=== PATIENT | female | born 1940 | race Caucasian/White ===

== ENCOUNTER → 2017-08-20 | Outpatient (REF) | payer MEDICARE, BC, MEDICAID ==
[~2017-08-20] MED LIST: ALBU17IN INH; ALBU83IN INH; ALDA25TA PO; ALDA25TA4 PO; CALC25TA PO; CALCTAB68 PO; CALTTAB10 PO; CARD120T4 PO; COUM1TAB14 PO; ELIQ5TAB PO; FERR324T2 PO; FERR325T3 PO; HYDR-3713 PO; KLOR1TAB69 PO; LIDO5DIS41 TD; MICR10CA PO; MONT10TA2 PO; MULTTAB33 PO; OCUVTAB PO; PRED20TAB PO; PROB1TAB PO; PROT1TAB2 PO; SING10TA32 PO; SPIR25TA2 PO; SYMB16INH INH; THEO1CAP2 PO; VICO5TAB16 PO; VITA-121 PO; VITA-122 PO; VITMTA PO; [UNRECOGNIZED DRUG - CODE] PO
[2017-08-20 10:57] LABS: BASO % 0.7 % (0.0-1.0); EOS # 0.1 10^3/uL (0.0-0.50); IMMATURE GRANULOCYTE % 0.2 % (0-0); LYMPH # 1.3 10^3/uL (1.5-4.5); MEAN CORPUSCULAR HEMOGLOBIN 32.4 pg (27.0-33.0); MEAN CORPUSCULAR HGB CONC 33.9 g/dl (32.0-36.5); MEAN CORPUSCULAR VOLUME 95.4 fl (80.0-96.0); MONO # 0.4 10^3/uL (0.0-0.8); NEUTROPHILS # 2.6 10^3/uL (1.8-7.7); NEUTROPHILS % 59.1 % (36.0-66.0); PLATELET COUNT, AUTOMATED 266 10^3/uL (150-450); RED CELL DISTRIBUTION WIDTH 13.2 % (11.5-14.5); WHITE BLOOD COUNT 4.4 10^3/uL (4.0-10.0)
[2017-08-20 11:29] LABS: ALBUMIN 3.4 GM/DL (3.2-5.2); ALBUMIN/GLOBULIN RATIO 1.1 (1.00-1.93); BILIRUBIN,TOTAL 0.6 MG/DL (0.2-1.0); CALCIUM LEVEL 8.6 MG/DL (8.8-10.2); CREATININE FOR GFR 1.01 MG/DL (0.55-1.02); GLOMERULAR FILTRATION RATE 56.6 (>39); TOTAL PROTEIN 6.5 GM/DL (6.4-8.2)
== END ==
LOC: M LAB REF 10:14
PROVIDERS: ATTEND Internal Medicine
DX: I12.9 Hypertensive chronic kidney disease with stage 1 through stage 4 chronic kidney disease, or unspecified chronic kidney disease (principal); E78.00 Pure hypercholesterolemia, unspecified

== ENCOUNTER 2018-01-02 10:58 | Day surgery (SDC) | payer MEDICARE, BC, MEDICAID ==
[2018-01-02] MEDS: NS 1,000 ML IV (11:30)
[2018-01-02] MEDS ORDERED: PROPOFOL 200 MG/20 ML VIAL As Ordered ×2 (11:33→12:28)
== END 2018-01-02 13:20 | disposition home or self-care (01) ==
LOC: M OPP 10:58
DX: Z12.11 Encounter for screening for malignant neoplasm of colon (principal); Z86.010 Personal history of colon polyps; D12.2 Benign neoplasm of ascending colon; K64.0 First degree hemorrhoids; I10 Essential (primary) hypertension; K92.2 Gastrointestinal hemorrhage, unspecified; K21.9 Gastro-esophageal reflux disease without esophagitis; Z86.718 Personal history of other venous thrombosis and embolism; Z99.3 Dependence on wheelchair; M41.9 Scoliosis, unspecified; M19.90 Unspecified osteoarthritis, unspecified site; M48.00 Spinal stenosis, site unspecified; R51 Headache; D64.9 Anemia, unspecified; J45.909 Unspecified asthma, uncomplicated; J44.9 Chronic obstructive pulmonary disease, unspecified; Z88.5 Allergy status to narcotic agent; Z88.2 Allergy status to sulfonamides; Z88.8 Allergy status to other drugs, medicaments and biological substances; Z79.01 Long term (current) use of anticoagulants; Z79.899 Other long term (current) drug therapy; Z80.0 Family history of malignant neoplasm of digestive organs
CPT/HCPCS: 45385

== ENCOUNTER → 2018-02-15 | Outpatient (REF) | payer MEDICARE, BC, MEDICAID ==
[2018-02-15 11:27] LABS: BASO % 0.6 % (0.0-1.0); EOS # 0.1 10^3/uL (0.0-0.50); EOS % 2.4 % (0.0-3.0); HEMATOCRIT 44.9 % (36.0-47.0); HEMOGLOBIN 15.2 g/dl (12.0-15.5); IMMATURE GRANULOCYTE % 0.2 % (0-3.0); LYMPH # 1.2 10^3/uL (1.5-4.5); LYMPH % 25.6 % (24.0-44.0); MEAN CORPUSCULAR HEMOGLOBIN 32.1 pg (27.0-33.0); MEAN CORPUSCULAR HGB CONC 33.9 g/dl (32.0-36.5); MEAN CORPUSCULAR VOLUME 94.7 fl (80.0-96.0); MONO # 0.4 10^3/uL (0.0-0.8); MONO % 7.5 % (0.0-5.0); NEUTROPHILS % 63.7 % (36.0-66.0); PLATELET COUNT, AUTOMATED 261 10^3/uL (150-450); RED BLOOD COUNT 4.74 10^6/uL (4.00-5.40); RED CELL DISTRIBUTION WIDTH 12.7 % (11.5-14.5); WHITE BLOOD COUNT 4.7 10^3/uL (4.0-10.0)
[2018-02-15 11:53] LABS: ALBUMIN 3.4 GM/DL (3.2-5.2); ALKALINE PHOSPHATASE 81 U/L (45-117); ALT/SGPT 27 U/L (12-78); ANION GAP 9 MEQ/L (8-16); AST/SGOT 19 U/L (7-37); BILIRUBIN,TOTAL 0.5 MG/DL (0.2-1.0); BLOOD UREA NITROGEN 17 MG/DL (7-18); CALCIUM LEVEL 8.3 MG/DL (8.8-10.2); CARBON DIOXIDE LEVEL 26 MEQ/L (21-32); CHLORIDE LEVEL 106 MEQ/L (98-107); CREATININE FOR GFR 1.16 MG/DL (0.55-1.30); GLOMERULAR FILTRATION RATE 48.1 (>39); GLUCOSE, FASTING 140 MG/DL (70-100); POTASSIUM SERUM 3.7 MEQ/L (3.5-5.1); SODIUM LEVEL 141 MEQ/L (136-145); TOTAL PROTEIN 6.8 GM/DL (6.4-8.2)
[2018-02-15 13:51] LABS: ESTIMATED AVERAGE GLUCOSE 134 MG/DL (60-110); HEMOGLOBIN A1c 6.3 %
== END ==
LOC: M LAB REF 11:15
DX: Z00.00 Encounter for general adult medical examination without abnormal findings (principal); Z79.899 Other long term (current) drug therapy
CPT/HCPCS: 80053

== ENCOUNTER 2018-04-15 12:44 | Outpatient (RCR) | payer MEDICARE, BC, MEDICAID | END 2018-05-03 | LOC: M ST 12:44 | DX: R49.0 Dysphonia (principal) | CPT/HCPCS: 92507 ==

== ENCOUNTER → 2018-08-22 | Outpatient (REF) | payer MEDICARE, BC, MEDICAID ==
[~2018-08-22] MED LIST changes: +COUM1TAB19 PO; +SPIR-10 PO; -SPIR25TA2 PO
[2018-08-22 12:14] LABS: HEMATOCRIT 45.8 % (36.0-47.0); HEMOGLOBIN 15.2 g/dl (12.0-15.5); RED BLOOD COUNT 4.77 10^6/uL (4.00-5.40); WHITE BLOOD COUNT 4.9 10^3/uL (4.0-10.0)
[2018-08-22 12:15] LABS: BASO % 0.6 % (0.0-1.0); EOS # 0.1 10^3/uL (0.0-0.50); LYMPH # 1.4 10^3/uL (1.5-4.5); MEAN CORPUSCULAR HEMOGLOBIN 31.9 pg (27.0-33.0); MEAN CORPUSCULAR HGB CONC 33.2 g/dl (32.0-36.5); MONO # 0.5 10^3/uL (0.0-0.8); MONO % 9.1 % (0.0-5.0); NEUTROPHILS # 2.9 10^3/uL (1.8-7.7); NEUTROPHILS % 59.3 % (36.0-66.0); PLATELET COUNT, AUTOMATED 240 10^3/uL (150-450)
[2018-08-22 12:30] LABS: ALBUMIN 3.2 GM/DL (3.2-5.2); BILIRUBIN,TOTAL 0.5 MG/DL (0.2-1.0); CALCIUM LEVEL 7.9 MG/DL (8.8-10.2); CHOLESTEROL RISK RATIO 5.125 (<5); CREATININE FOR GFR 0.98 MG/DL (0.55-1.30); GLOMERULAR FILTRATION RATE 58.4 (>39); POTASSIUM SERUM 3.9 MEQ/L (3.5-5.1); THYROID STIMULATING HORMONE 1.69 uIU/ML (0.358-3.740); TOTAL PROTEIN 6.6 GM/DL (6.4-8.2)
[2018-08-22 12:35] LABS: HEMOGLOBIN A1c 6.6 %
== END ==
LOC: M LAB REF 11:34
PROVIDERS: ATTEND Internal Medicine
DX: Z79.01 Long term (current) use of anticoagulants (principal); R53.83 Other fatigue; Z13.89 Encounter for screening for other disorder

== ENCOUNTER → 2020-08-05 | Outpatient (REF) | payer MEDICARE, BC, MEDICAID ==
[~2020-08-05] MED LIST changes: -ALDA25TA PO; -COUM1TAB14 PO; +COUM4TAB8 PO; -MONT10TA2 PO; +MONT5TAB2 PO; +NORC1TAB7 PO; +SPIR1TAB34 PO; -VICO5TAB16 PO; +VICO5TAB17 PO
[2020-08-05 14:07] LABS: BASO % 0.4 % (0.0-1.0); EOS % 0.3 % (0.0-3.0); HEMATOCRIT 50.2 % (36.0-47.0); HEMOGLOBIN 16.8 g/dl (12.0-15.5); LYMPH # 0.8 10^3/uL (1.5-5.0); LYMPH % 10.6 % (24.0-44.0); MEAN CORPUSCULAR HEMOGLOBIN 32.6 pg (27.0-33.0); MEAN CORPUSCULAR HGB CONC 33.5 g/dl (32.0-36.5); MEAN CORPUSCULAR VOLUME 97.5 fl (80.0-96.0); MONO # 0.1 10^3/uL (0.0-0.8); MONO % 1.7 % (0.0-5.0); NEUTROPHILS # 6.5 10^3/uL (1.5-8.5); NEUTROPHILS % 86.7 % (36.0-66.0); PLATELET COUNT, AUTOMATED 304 10^3/uL (150-450); RED BLOOD COUNT 5.15 10^6/uL (4.00-5.40); WHITE BLOOD COUNT 7.5 10^3/uL (4.0-10.0)
[2020-08-05 16:43] LABS: ALBUMIN 3.9 GM/DL (3.2-5.2); BILIRUBIN,TOTAL 0.6 MG/DL (0.2-1.0); CALCIUM LEVEL 9.2 MG/DL (8.8-10.2); CREATININE FOR GFR 1.26 MG/DL (0.55-1.30); GLOMERULAR FILTRATION RATE 43.5 (>32); POTASSIUM SERUM 4.5 MEQ/L (3.5-5.1); TOTAL PROTEIN 7.1 GM/DL (6.4-8.2)
[2020-08-05 18:33] LABS: HEMOGLOBIN A1c 6.8 %
== END ==
LOC: M LAB REF 13:39
PROVIDERS: ATTEND Internal Medicine
DX: I12.9 Hypertensive chronic kidney disease with stage 1 through stage 4 chronic kidney disease, or unspecified chronic kidney disease (principal); I87.302 Chronic venous hypertension (idiopathic) without complications of left lower extremity; R73.09 Other abnormal glucose

== ENCOUNTER → 2021-02-08 | Outpatient (CLI) | payer MEDICARE, BC, MEDICAID ==
[~2021-02-08] MED LIST changes: +MONT10TA10 PO; -MONT5TAB2 PO
--- NOTE | 2021-02-08 14:02 | REP ---
INDICATION: PAIN. COMPARISON: None TECHNIQUE: Two views FINDINGS: There is flattening of the femoral head. There is superolateral subluxation. There is marginal osteophytosis arising from the inferomedial margin of the femoral head. There is acetabular and femoral head subchondral sclerosis. Bones are otherwise generally demineralized. IMPRESSION: Advanced chronic right hip changes as described above. Consider further evaluation with MRI to search for marrow edema to assess for the possibility of an acute abnormality superimposed upon chronic change. <Electronically signed by Bryan Chirinos > 02/08/21 0525
== END ==
LOC: M WUC 13:33
PROVIDERS: ATTEND Internal Medicine
DX: M25.751 Osteophyte, right hip (principal); M89.8X5 Other specified disorders of bone, thigh

== ENCOUNTER → 2021-04-29 | Outpatient (CLI) | payer MEDICARE, MEDICAID ==
[~2021-04-29] MED LIST changes: +BUPIVACAINE HCL 0.5% 10ML VIAL As Ordered ONE; +ISOVUE-300 61% 50ML VIAL As Ordered ONE; +methylPREDNISolone 80MG/ML SUSP 1ML VIAL (J1040) As Ordered ONE
--- NOTE | 2021-04-29 13:30 | REP ---
INDICATION: RT HIP PAIN. COMPARISON: None TECHNIQUE: The procedure was performed by LILIAN Gamez, under the direct supervision of Dr. Amado. The benefits and risks of the procedure were explained to the patient, and an informed consent was obtained. Directly prior to the start of the procedure, a formal time-out was completed in the procedure room. The right femoral neck joint space was localized using fluoroscopic guidance. The skin was prepped and draped in a sterile fashion. Approximately 5 mL of 1% Lidocaine 10 mg/ml was used as a local anesthetic. Using fluoroscopic guidance, a #22 gauge spinal needle was inserted and advanced into the right femoral neck joint space. Approximately 1 mL of Isovue 300 was injected to verify placement. Six mL of a solution containing 5 mL 0.5 bupivacaine 5 mg/ml and 1 mL Depo-Medrol 80 milligrams/milliliter was injected into the joint space. The needle was removed and hemostasis was achieved. FINDINGS: The patient tolerated the procedure well and there were no immediate complications. IMPRESSION: 1. Fluoroscopically guided right hip intra-articular joint injection. 0.2 minutes of fluoroscopy time was utilized for this procedure. Some fluoroscopic images are performed with last image hold technology. These images require no additional radiation. <Electronically signed by Zulma Kaur > 04/29/21 1216 <Electronically signed by Lewis Amado > 04/29/21 [id number]
== END ==
LOC: M RADPRO 11:10
PROVIDERS: ATTEND Orthopaedic Surgery
DX: M25.551 Pain in right hip (principal)
CPT/HCPCS: 20610; 77002; J1040; Q9967

== ENCOUNTER → 2021-07-04 | Outpatient (CLI) | payer MEDICARE, MEDICAID ==
[~2021-07-04] MED LIST changes: -BUPIVACAINE HCL 0.5% 10ML VIAL As Ordered ONE; +BUPIVACAINE HCL 0.5% 30 ML VIAL As Ordered ONE
--- NOTE | 2021-07-04 18:08 | REP ---
INDICATION: RT HIP PAIN W/ OA. COMPARISON: None TECHNIQUE: The procedure was performed by LILIAN Gonzalez, under the direct supervision of Dr. Garcia. The benefits and risks of the procedure were explained to the patient, and an informed consent was obtained. Directly prior to the start of the procedure, a formal time-out was completed in the procedure room. The right hip joint space was localized using fluoroscopic guidance. The skin was prepped and draped in a sterile fashion. Approximately 5 mL of 1% Lidocaine 10 mg/ml was used as a local anesthetic. Using fluoroscopic guidance, a #22 gauge spinal needle was inserted and advanced into the right hip joint space. Approximately 3 mL of Isovue 300 was injected to verify placement. Six mL of a solution containing 5 mL bupivacaine and 1 mL Depo-Medrol 80 mg/mL was injected into the joint space. The needle was removed and hemostasis was achieved. FINDINGS: The patient tolerated the procedure well and there were no immediate complications. IMPRESSION: 1. Technically successful right hip arthrogram. 0.2 minutes of fluoroscopy time was utilized for this procedure. Some fluoroscopic images are performed with last image hold technology. These images require no additional radiation. <Electronically signed by Araceli Eid > 07/04/21 1507 <Electronically signed by Bill Garcia > 07/04/21 [id number]
== END ==
LOC: M RADPRO 13:52
PROVIDERS: ATTEND Orthopaedic Surgery
DX: M25.551 Pain in right hip (principal)
CPT/HCPCS: 20610; 77002; J1040; Q9967

== ENCOUNTER → 2021-08-05 | Outpatient (REF) | payer MEDICARE, MEDICAID ==
[~2021-08-05] MED LIST changes: -BUPIVACAINE HCL 0.5% 30 ML VIAL As Ordered ONE; -ISOVUE-300 61% 50ML VIAL As Ordered ONE; -methylPREDNISolone 80MG/ML SUSP 1ML VIAL (J1040) As Ordered ONE
[2021-08-05 10:33] LABS: BASO % 0.5 % (0.0-1.0); EOS # 0.1 10^3/uL (0.0-0.5); EOS % 1.1 % (0.0-3.0); HEMATOCRIT 47.7 % (36.0-47.0); HEMOGLOBIN 15.3 g/dl (12.0-15.5); LYMPH # 1.7 10^3/uL (1.5-5.0); LYMPH % 25.5 % (24.0-44.0); MEAN CORPUSCULAR HEMOGLOBIN 31.5 pg (27.0-33.0); MEAN CORPUSCULAR HGB CONC 32.1 g/dl (32.0-36.5); MEAN CORPUSCULAR VOLUME 98.1 fl (80.0-96.0); MONO # 0.5 10^3/uL (0.0-0.8); MONO % 7.5 % (2.0-8.0); NEUTROPHILS # 4.3 10^3/uL (1.5-8.5); NEUTROPHILS % 65.1 % (36.0-66.0); PLATELET COUNT, AUTOMATED 305 10^3/uL (150-450); RED BLOOD COUNT 4.86 10^6/uL (4.00-5.40); WHITE BLOOD COUNT 6.6 10^3/uL (4.0-10.0)
[2021-08-05 10:55] LABS: HEMOGLOBIN A1c 6.5 %
[2021-08-05 10:58] LABS: ALBUMIN 3.6 GM/DL (3.2-5.2); BILIRUBIN,TOTAL 0.5 MG/DL (0.2-1.0); CALCIUM LEVEL 8.8 MG/DL (8.8-10.2); CREATININE FOR GFR 1.19 MG/DL (0.55-1.30); GLOMERULAR FILTRATION RATE 46.3 (>32); POTASSIUM SERUM 3.7 MEQ/L (3.5-5.1); TOTAL PROTEIN 6.9 GM/DL (6.4-8.2)
== END ==
LOC: M LAB REF 10:05
PROVIDERS: ATTEND Internal Medicine
DX: I12.9 Hypertensive chronic kidney disease with stage 1 through stage 4 chronic kidney disease, or unspecified chronic kidney disease (principal); Z79.01 Long term (current) use of anticoagulants; R73.09 Other abnormal glucose

== ENCOUNTER → 2021-11-10 | Outpatient (CLI) | payer MEDICARE, MEDICAID ==
[~2021-11-10] MED LIST changes: +BUPIVACAINE HCL 0.5% 30 ML VIAL As Ordered ONE; +ISOVUE-300 61% 50ML VIAL As Ordered ONE; +LIDOCAINE 1% MDV 20ML VIAL As Ordered ONE; -MONT10TA10 PO; +MONT10TA97 PO; +methylPREDNISolone 80MG/ML SUSP 1ML VIAL (J1040) As Ordered ONE
== END ==
LOC: M RADPRO 14:52
PROVIDERS: ATTEND Orthopaedic Surgery
DX: M16.11 Unilateral primary osteoarthritis, right hip (principal); M25.551 Pain in right hip
CPT/HCPCS: 20610; 77002; J1040; Q9967

== ENCOUNTER → 2021-11-17 | Outpatient (REF) | payer MEDICARE, MEDICAID ==
[~2021-11-17] MED LIST changes: -BUPIVACAINE HCL 0.5% 30 ML VIAL As Ordered ONE; -ISOVUE-300 61% 50ML VIAL As Ordered ONE; -LIDOCAINE 1% MDV 20ML VIAL As Ordered ONE; -methylPREDNISolone 80MG/ML SUSP 1ML VIAL (J1040) As Ordered ONE
[2021-11-18 10:27] LABS: APPEARANCE, URINE TURBID (CLEAR); BACTERIA, URINE AUTO 3+ (NEGATIVE); BILIRUBIN, URINE AUTO NEGATIVE (NEGATIVE); BLOOD, URINE BLOOD 2+ (NEGATIVE); COLOR, URINE YELLOW (YELLOW); GLUCOSE, URINE (UA) AUTO 3+ mg/dL (NEGATIVE); KETONE, URINE AUTO TRACE mg/dL (NEGATIVE); LEUKOCYTE ESTERASE, URINE AUTO 3+ (NEGATIVE); MUCUS, URINE SMALL (NEGATIVE); NITRITE, URINE AUTO POSITIVE (NEGATIVE); PROTEIN, URINE AUTO 1+ mg/dL (NEGATIVE); RBC, URINE AUTO 6 /HPF (0-3); SPECIFIC GRAVITY URINE AUTO 1.026 (1.002-1.035); SQUAMOUS EPITHELIAL CELL UR AU 1 /HPF (0-6); UROBILINOGEN, URINE AUTO 0.2 mg/dL (0.0-2.0); WBC, URINE AUTO TNTC /HPF (0-3)
== END ==
LOC: M LAB REF 09:59
PROVIDERS: ATTEND Internal Medicine
DX: R30.9 Painful micturition, unspecified (principal)

== ENCOUNTER → 2022-01-18 | Outpatient (REF) | payer MEDICARE, MEDICAID ==
[2022-01-18 17:46] LABS: APPEARANCE, URINE CLOUDY (CLEAR); BACTERIA, URINE AUTO 1+ (NEGATIVE); BILIRUBIN, URINE AUTO NEGATIVE (NEGATIVE); BLOOD, URINE BLOOD 1+ (NEGATIVE); COLOR, URINE YELLOW (YELLOW); GLUCOSE, URINE (UA) AUTO 3+ mg/dL (NEGATIVE); KETONE, URINE AUTO NEGATIVE (NEGATIVE); LEUKOCYTE ESTERASE, URINE AUTO 3+ (NEGATIVE); NITRITE, URINE AUTO NEGATIVE (NEGATIVE); PROTEIN, URINE AUTO NEGATIVE (NEGATIVE); RBC, URINE AUTO 8 /HPF (0-3); SPECIFIC GRAVITY URINE AUTO 1.013 (1.002-1.035); SQUAMOUS EPITHELIAL CELL UR AU 0 /HPF (0-6); UROBILINOGEN, URINE AUTO 0.2 mg/dL (0.0-2.0); WBC, URINE AUTO TNTC /HPF (0-3)
== END ==
LOC: M LAB REF 16:59
PROVIDERS: ATTEND Nurse Practitioner Adult Health
DX: R30.9 Painful micturition, unspecified (principal); R35.0 Frequency of micturition

== ENCOUNTER → 2022-02-06 | Outpatient (REF) | payer MEDICARE, MEDICAID ==
[~2022-02-06] MED LIST changes: +ALBU2.5V10 INH; -ALBU83IN INH
[2022-02-06 17:49] LABS: BASO % 0.2 % (0.0-1.0); EOS # 0.1 10^3/uL (0.0-0.5); EOS % 1.1 % (0.0-3.0); HEMATOCRIT 41.4 % (36.0-47.0); HEMOGLOBIN 13.5 g/dl (12.0-15.5); LYMPH # 0.9 10^3/uL (1.5-5.0); LYMPH % 11.3 % (24.0-44.0); MEAN CORPUSCULAR HEMOGLOBIN 32.1 pg (27.0-33.0); MEAN CORPUSCULAR HGB CONC 32.6 g/dl (32.0-36.5); MEAN CORPUSCULAR VOLUME 98.6 fl (80.0-96.0); MONO # 0.7 10^3/uL (0.0-0.8); MONO % 8.8 % (2.0-8.0); NEUTROPHILS # 6.3 10^3/uL (1.5-8.5); NEUTROPHILS % 78.1 % (36.0-66.0); PLATELET COUNT, AUTOMATED 269 10^3/uL (150-450); WHITE BLOOD COUNT 8.1 10^3/uL (4.0-10.0)
[2022-02-06 18:15] LABS: ALBUMIN 3.2 GM/DL (3.2-5.2); BILIRUBIN,TOTAL 0.6 MG/DL (0.2-1.0); CALCIUM LEVEL 8.9 MG/DL (8.8-10.2); CREATININE FOR GFR 1.1 MG/DL (0.55-1.30); GLOMERULAR FILTRATION RATE 50.6 (>32); POTASSIUM SERUM 3.4 MEQ/L (3.5-5.1); THYROID STIMULATING HORMONE 0.766 uIU/ML (0.358-3.740); TOTAL PROTEIN 5.9 GM/DL (6.4-8.2)
== END ==
LOC: M LAB REF 17:30
PROVIDERS: ATTEND Internal Medicine
DX: Z79.01 Long term (current) use of anticoagulants (principal); D64.9 Anemia, unspecified; R73.09 Other abnormal glucose; E66.09 Other obesity due to excess calories

== ENCOUNTER → 2022-02-17 | Outpatient (CLI) | payer MEDICARE, MEDICAID | LOC: M RAD 15:44 | PROVIDERS: ATTEND Internal Medicine | DX: M15.9 Polyosteoarthritis, unspecified (principal) ==

== ENCOUNTER → 2022-03-02 | Outpatient (RCR) | payer MEDICARE, MEDICAID | LOC: M PT 10:42 | PROVIDERS: ATTEND Internal Medicine | DX: M25.551 Pain in right hip (principal); M54.50 Low back pain, unspecified ==

== ENCOUNTER → 2022-08-12 | Outpatient (REF) | payer MEDICARE, MEDICAID ==
[2022-08-12 06:36] LABS: BASO % 0.4 % (0.0-1.0); EOS # 0.1 10^3/uL (0.0-0.5); EOS % 1.3 % (0.0-3.0); HEMATOCRIT 42.9 % (36.0-47.0); HEMOGLOBIN 13.4 g/dl (12.0-15.5); LYMPH # 1.7 10^3/uL (1.5-5.0); LYMPH % 25.3 % (24.0-44.0); MEAN CORPUSCULAR HEMOGLOBIN 29.3 pg (27.0-33.0); MEAN CORPUSCULAR HGB CONC 31.2 g/dl (32.0-36.5); MEAN CORPUSCULAR VOLUME 93.9 fl (80.0-96.0); MONO # 0.7 10^3/uL (0.0-0.8); MONO % 10.8 % (2.0-8.0); NEUTROPHILS # 4.2 10^3/uL (1.5-8.5); NEUTROPHILS % 61.9 % (36.0-66.0); PLATELET COUNT, AUTOMATED 301 10^3/uL (150-450); RED BLOOD COUNT 4.57 10^6/uL (4.00-5.40); WHITE BLOOD COUNT 6.8 10^3/uL (4.0-10.0)
[2022-08-12 07:01] LABS: THYROID STIMULATING HORMONE 0.696 uIU/ML (0.55-4.78)
[2022-08-12 07:09] LABS: ALBUMIN 3.3 G/DL (3.2-5.2); BILIRUBIN,TOTAL 0.4 MG/DL (0.3-1.2); CALCIUM LEVEL 8.7 MG/DL (8.3-10.6); CHOLESTEROL RISK RATIO 3.66 (<5); CREATININE FOR GFR 0.96 MG/DL (0.55-1.30); GLOMERULAR FILTRATION RATE 59.2 (>32); HDL CHOLESTEROL 48.3 MG/DL (>40); LDL CHOLESTEROL 95.5 MG/DL (<100); POTASSIUM SERUM 3.6 MMOL/L (3.5-5.1); TOTAL PROTEIN 6.2 G/DL (5.7-8.2)
[2022-08-12 12:06] LABS: HEMOGLOBIN A1c 6.7 % (4.0-6.0)
[2022-08-12 14:21] LABS: CREATININE, URINE 69.9 MG/DL; MAU/CREAT RATIO 82.9 MCG/MG (0.0-30.0)
== END ==
LOC: M LAB REF 05:57
PROVIDERS: ATTEND Internal Medicine
DX: R73.09 Other abnormal glucose (principal); I12.9 Hypertensive chronic kidney disease with stage 1 through stage 4 chronic kidney disease, or unspecified chronic kidney disease; E78.00 Pure hypercholesterolemia, unspecified; Z79.01 Long term (current) use of anticoagulants; Z13.89 Encounter for screening for other disorder

== ENCOUNTER → 2022-10-06 | Outpatient (REF) | payer MEDICARE, MEDICAID | LOC: M LAB REF 14:18 | PROVIDERS: ATTEND Physician Assistant Medical | DX: R60.9 Edema, unspecified (principal); I50.32 Chronic diastolic (congestive) heart failure ==

== ENCOUNTER → 2023-02-05 | Outpatient (REF) | payer MEDICARE, MEDICAID ==
[~2023-02-05] MED LIST changes: +MONT-5 PO; -SING10TA32 PO
[2023-02-05 14:51] LABS: BASO % 0.3 % (0.0-1.0); EOS % 0.2 % (0.0-3.0); HEMATOCRIT 44.3 % (36.0-47.0); HEMOGLOBIN 14.6 g/dl (12.0-15.5); LYMPH # 0.7 10^3/uL (1.5-5.0); LYMPH % 7.7 % (24.0-44.0); MEAN CORPUSCULAR HEMOGLOBIN 30.5 pg (27.0-33.0); MEAN CORPUSCULAR VOLUME 92.5 fl (80.0-96.0); MONO # 0.3 10^3/uL (0.0-0.8); MONO % 3.5 % (2.0-8.0); NEUTROPHILS # 8.4 10^3/uL (1.5-8.5); PLATELET COUNT, AUTOMATED 301 10^3/uL (150-450); RED BLOOD COUNT 4.79 10^6/uL (4.00-5.40); WHITE BLOOD COUNT 9.5 10^3/uL (4.0-10.0)
[2023-02-05 15:13] LABS: BILIRUBIN,TOTAL 1.1 MG/DL (0.3-1.2); CALCIUM LEVEL 8.7 MG/DL (8.3-10.6); CREATININE FOR GFR 1.32 MG/DL (0.55-1.30); GLOMERULAR FILTRATION RATE 40.9 (>32); POTASSIUM SERUM 3.7 MMOL/L (3.5-5.1)
[2023-02-05 15:15] LABS: THYROID STIMULATING HORMONE 0.653 uIU/ML (0.55-4.78)
[2023-02-05 15:32] LABS: HEMOGLOBIN A1c 6.8 % (4.0-6.0)
== END ==
LOC: M LAB REF 13:39
PROVIDERS: ATTEND Internal Medicine
DX: N18.31 Chronic kidney disease, stage 3a (principal); R73.09 Other abnormal glucose; Z13.29 Encounter for screening for other suspected endocrine disorder; Z79.01 Long term (current) use of anticoagulants; Z79.899 Other long term (current) drug therapy

== ENCOUNTER → 2023-04-26 | Outpatient (CLI) | payer MEDICARE, MEDICAID | LOC: M LAB 13:52 → M RAD 13:52 | PROVIDERS: ATTEND Internal Medicine Pulmonary Disease | DX: R91.8 Other nonspecific abnormal finding of lung field (principal); K44.9 Diaphragmatic hernia without obstruction or gangrene; M51.34 Other intervertebral disc degeneration, thoracic region; M51.36 Other intervertebral disc degeneration, lumbar region; J45.40 Moderate persistent asthma, uncomplicated ==

== ENCOUNTER 2023-06-20 11:19 | Inpatient (IN) | payer MEDICARE, MEDICAID ==
[~2023-06-20] VITALS: Ht 157.5 cm; Wt 91.9 kg
[2023-06-20] MEDS ORDERED: PRED10TA2 (11:32)
[2023-06-20] MEDS ORDERED: TORS20TA2 PO (11:32)
[2023-06-20] MEDS ORDERED: POTA1TAB23 (11:32)
[2023-06-20] MEDS ORDERED: GLIP5TAB17 (11:32)
[2023-06-20] MEDS ORDERED: VENTAER INH (11:32)
[2023-06-20] MEDS ORDERED: ELIQ2.5T PO (11:32)
[2023-06-20] MEDS ORDERED: SYMB16INH INH (11:32)
[2023-06-20] MEDS ORDERED: MAGN400T35 PO (11:32)
[2023-06-20] MEDS ORDERED: CARD120T4 PO (11:32)
[2023-06-20 13:02] LABS: BASO % 0.2 % (0.0-1.0); EOS % 0.1 % (0.0-3.0); HEMATOCRIT 40.7 % (36.0-47.0); HEMOGLOBIN 13.2 g/dl (12.0-15.5); LYMPH # 0.5 10^3/uL (1.5-5.0); LYMPH % 5.3 % (24.0-44.0); MEAN CORPUSCULAR HEMOGLOBIN 30.1 pg (27.0-33.0); MEAN CORPUSCULAR HGB CONC 32.4 g/dl (32.0-36.5); MEAN CORPUSCULAR VOLUME 92.9 fl (80.0-96.0); MONO # 0.4 10^3/uL (0.0-0.8); NEUTROPHILS % 90.1 % (36.0-66.0); PLATELET COUNT, AUTOMATED 274 10^3/uL (150-450); RED BLOOD COUNT 4.38 10^6/uL (4.00-5.40); WHITE BLOOD COUNT 8.9 10^3/uL (4.0-10.0)
[2023-06-20 13:12] LABS: ABG BASE EXCESS 1.5 (-2.0-2.0); ABG HCO3 24.6 MMOL/L (22.0-26.0); ABG PARTIAL PRESSURE CO2 34.3 mmHg (35.0-45.0); ABG PARTIAL PRESSURE O2 78.7 mmHg (75.0-100.0); ABG STANDARD HCO3 25.8 MMOL/L. (22.0-26.0); ABG TOTAL CO2 25.7 MMOL/L (23.0-31.0); ABG pH (ARTERIAL) 7.474 UNITS (7.350-7.450)
[2023-06-20 13:31] LABS: CALCIUM LEVEL 8.9 MG/DL (8.3-10.6); CREATININE FOR GFR 1.14 MG/DL (0.55-1.30); GLOMERULAR FILTRATION RATE 48.5 (>32); POTASSIUM SERUM 4.3 MMOL/L (3.5-5.1)
[2023-06-20] MEDS ORDERED: ISOVUE-370 76% 100ML VIAL As Ordered ONE (13:42)
[2023-06-20 15:23] LABS: INR 1.66; PROTHROMBIN TIME 19.1 SECONDS (12.5-14.5)
[2023-06-20] MEDS ORDERED: dexAMETHasone 20MG/5ML VIAL IV ONE (15:30)
[2023-06-20] MEDS: IPRATROPIUM 0.5MG/ALBUTEROL 2.5MG INH SOL UD 3ML (DUONEB) NEB SCH ×4 (15:44→21:42)
[2023-06-20] MEDS ORDERED: MED REC IN PROGRESS XX SCH (19:35)
[2023-06-20] MEDS ORDERED: MOM 30ML SUSPENSION UDC PO PRN (20:30)
[2023-06-20] MEDS ORDERED: PRED5TA PO (20:32)
[2023-06-20] MEDS ORDERED: HOME MED LIST COMPLETE! XX SCH (20:40)
[2023-06-20] MEDS ORDERED: LEVALBUTEROL 1.25MG 0.5ML CONCENTRATE NEB INH PRN (21:10)
[2023-06-20 21:27] VITALS: BP 114/73; TEMP 97; O2SAT 95
[2023-06-20 21:30] LABS: PROCALCITONIN 0.11 ng/ml
[2023-06-20] MEDS: ACETAMINOPHEN TAB 650MG DOSE (2X325MG) PO PRN (22:23)
[2023-06-20] MEDS: methylPREDNISolone 125MG 2ML VIAL IV SCH (23:18)
[2023-06-20 23:37] VITALS: BP 125/81; TEMP 96.3; O2SAT 93
[2023-06-21] MEDS: IPRATROPIUM 0.5MG/ALBUTEROL 2.5MG INH SOL UD 3ML (DUONEB) NEB SCH ×4 (00:15→19:47)
[2023-06-21 03:43] VITALS: BP 122/68; TEMP 96.3; O2SAT 90
[2023-06-21 06:10] LABS: HEMOGLOBIN 12.1 g/dl (12.0-15.5); MEAN CORPUSCULAR HEMOGLOBIN 30.2 pg (27.0-33.0); MEAN CORPUSCULAR HGB CONC 32.7 g/dl (32.0-36.5); MEAN CORPUSCULAR VOLUME 92.3 fl (80.0-96.0); PLATELET COUNT, AUTOMATED 257 10^3/uL (150-450); RED BLOOD COUNT 4.01 10^6/uL (4.00-5.40)
[2023-06-21 06:33] LABS: ALBUMIN 3.4 G/DL (3.2-5.2); BILIRUBIN,TOTAL 0.9 MG/DL (0.3-1.2); CALCIUM LEVEL 8.7 MG/DL (8.3-10.6); CREATININE FOR GFR 1.01 MG/DL (0.55-1.30); GLOMERULAR FILTRATION RATE 55.7 (>32); MAGNESIUM LEVEL 2.2 MG/DL (1.8-2.4); POTASSIUM SERUM 3.9 MMOL/L (3.5-5.1); TOTAL PROTEIN 6.2 G/DL (5.7-8.2)
[2023-06-21 07:42] VITALS: BP 133/83; TEMP 96.8; O2SAT 95
[2023-06-21] MEDS: methylPREDNISolone 125MG 2ML VIAL IV SCH ×3 (07:45→23:10)
[2023-06-21] MEDS: NS 1,000 ML IV SCH ×2 (08:23→20:05)
[2023-06-21] MEDS: MAGNESIUM OXIDE 400MG TAB (MAG-OX) PO SCH (09:38)
[2023-06-21] MEDS: APIXABAN 2.5 MG TAB (ELIQUIS) PO SCH ×2 (09:39→20:05)
[2023-06-21] MEDS: dilTIAZem 60 MG TAB PO SCH (09:39)
[2023-06-21] MEDS: ACETAMINOPHEN TAB 650MG DOSE (2X325MG) PO PRN ×2 (09:43→16:13)
[2023-06-21 12:10] VITALS: BP 113/76; TEMP 97.2; O2SAT 97
[2023-06-21] MEDS: SYMBICORT 160/4.5MCG INHALER 6GM INH SCH ×2 (13:01→19:47)
[2023-06-21 15:59] VITALS: BP 133/78; TEMP 96.9; O2SAT 97
[2023-06-21 19:02] VITALS: BP 126/77; TEMP 96.8; O2SAT 95
[2023-06-22] MEDS: IPRATROPIUM 0.5MG/ALBUTEROL 2.5MG INH SOL UD 3ML (DUONEB) NEB SCH ×4 (02:33→19:28)
[2023-06-22 03:30] VITALS: BP 123/70; TEMP 96.7; O2SAT 95
[2023-06-22] MEDS: ACETAMINOPHEN TAB 650MG DOSE (2X325MG) PO PRN ×3 (05:05→20:01)
[2023-06-22 06:19] LABS: HEMOGLOBIN 11.7 g/dl (12.0-15.5); MEAN CORPUSCULAR HEMOGLOBIN 30.1 pg (27.0-33.0); MEAN CORPUSCULAR HGB CONC 32.5 g/dl (32.0-36.5); MEAN CORPUSCULAR VOLUME 92.5 fl (80.0-96.0); PLATELET COUNT, AUTOMATED 267 10^3/uL (150-450); RED BLOOD COUNT 3.89 10^6/uL (4.00-5.40); WHITE BLOOD COUNT 14.3 10^3/uL (4.0-10.0)
[2023-06-22 07:30] VITALS: BP 144/80; TEMP 96.9; O2SAT 95
[2023-06-22] MEDS: SYMBICORT 160/4.5MCG INHALER 6GM INH SCH ×2 (07:51→19:28)
[2023-06-22] MEDS: NS 1,000 ML IV SCH (08:39)
[2023-06-22] MEDS: APIXABAN 2.5 MG TAB (ELIQUIS) PO SCH ×2 (08:39→20:01)
[2023-06-22] MEDS: MAGNESIUM OXIDE 400MG TAB (MAG-OX) PO SCH (08:41)
[2023-06-22] MEDS: dilTIAZem 60 MG TAB PO SCH (08:41)
[2023-06-22] MEDS: LIDOCAINE 5% (LIDODERM) PATCH TD SCH (10:40)
[2023-06-22] MEDS: methylPREDNISolone 40MG 1ML VIAL IV SCH ×2 (11:49→23:59)
[2023-06-22 15:48] VITALS: BP 110/71; TEMP 96.7; O2SAT 97
[2023-06-22 19:18] VITALS: BP 131/87; TEMP 97.1; O2SAT 96
[2023-06-23] VITALS (11 sets, daily range): BP systolic 105–139; BP diastolic 63–89; TEMP 97–97.7; O2SAT 93–97
[2023-06-23] MEDS: IPRATROPIUM 0.5MG/ALBUTEROL 2.5MG INH SOL UD 3ML (DUONEB) NEB SCH ×2 (02:58→07:19)
[2023-06-23 04:50] LABS: HEMATOCRIT 34.5 % (36.0-47.0); HEMOGLOBIN 11.5 g/dl (12.0-15.5); MEAN CORPUSCULAR HEMOGLOBIN 30.2 pg (27.0-33.0); MEAN CORPUSCULAR HGB CONC 33.3 g/dl (32.0-36.5); MEAN CORPUSCULAR VOLUME 90.6 fl (80.0-96.0); PLATELET COUNT, AUTOMATED 273 10^3/uL (150-450); RED BLOOD COUNT 3.81 10^6/uL (4.00-5.40); WHITE BLOOD COUNT 16.6 10^3/uL (4.0-10.0)
[2023-06-23] MEDS ORDERED: NS 1,000 ML IV SCH (06:50)
[2023-06-23] MEDS ORDERED: GLUCOSE 4GM CHEW TABLET PO PRN (07:00)
[2023-06-23] MEDS ORDERED: GLUCAGON INJ 1MG VIAL SC PRN (07:00)
[2023-06-23] MEDS ORDERED: DEXTROSE 50% 50ML SYRINGE IV PRN (07:00)
[2023-06-23] MEDS: SYMBICORT 160/4.5MCG INHALER 6GM INH SCH ×2 (07:19→19:08)
[2023-06-23] MEDS: INSULIN LISPRO (NovoLOG) PER UNIT SC SCH ×4 (07:52→21:21)
[2023-06-23 08:06] LABS: ABG BASE EXCESS -2.5 (-2.0-2.0); ABG HCO3 20.9 MMOL/L (22.0-26.0); ABG O2 SATURATION 98.9 % (95.0-99.0); ABG PARTIAL PRESSURE CO2 31.8 mmHg (35.0-45.0); ABG PARTIAL PRESSURE O2 131.3 mmHg (75.0-100.0); ABG STANDARD HCO3 22.4 MMOL/L. (22.0-26.0); ABG TOTAL CO2 21.8 MMOL/L (23.0-31.0); ABG pH (ARTERIAL) 7.435 UNITS (7.350-7.450)
[2023-06-23] MEDS: dilTIAZem 60 MG TAB PO SCH (08:29)
[2023-06-23] MEDS: APIXABAN 2.5 MG TAB (ELIQUIS) PO SCH ×2 (08:29→21:20)
[2023-06-23] MEDS: LIDOCAINE 5% (LIDODERM) PATCH TD SCH ×3 (08:30→17:45)
[2023-06-23] MEDS: MAGNESIUM OXIDE 400MG TAB (MAG-OX) PO SCH (08:30)
[2023-06-23] MEDS: ACETAMINOPHEN TAB 650MG DOSE (2X325MG) PO PRN ×2 (08:34→16:56)
[2023-06-23 08:39] LABS: HEMOGLOBIN 11.7 g/dl (12.0-15.5)
[2023-06-23] MEDS ORDERED: predniSONE 20 MG TAB PO SCH (09:00)
[2023-06-23] MEDS ORDERED: INSULIN REGULAR IN 0.9 % NACL 100 UNIT in IV 1 EA IV SCH ×2 (09:50)
[2023-06-23] MEDS: INSULIN IV RATE CHANGE DOCUMENTATION ML/HR XX SCH ×2 (12:04→14:00)
[2023-06-23] MEDS: OMEPRAZOLE 20MG CAP PO SCH (12:05)
[2023-06-23 12:21] LABS: ALT/SGPT 22 U/L (1-33); AST/SGOT 20 U/L (5-40); BLOOD UREA NITROGEN 41 MG/DL (7-21); CALCIUM LEVEL 8.6 MG/DL (8.8-10.2); CARBON DIOXIDE LEVEL 18 MEQ/L (22-30); CHLORIDE LEVEL 97 MEQ/L (98-107); CREATININE FOR GFR 1.2 MG/DL (0.7-1.5); GLOMERULAR FILTRATION RATE 45.7 (>32); GLUCOSE, FASTING 333 MG/DL; POTASSIUM SERUM 3.9 MEQ/L (3.6-5.0); SODIUM LEVEL 133 MEQ/L (134-153)
[2023-06-23 12:22] LABS: ALKALINE PHOSPHATASE 57 U/L (35-104); BILIRUBIN,TOTAL < 0.7 MG/DL (0.2-1.3); TOTAL PROTEIN 6.2 G/DL (6.3-8.2)
[2023-06-23] MEDS ORDERED: MAG SULF 1GM/100ML (MAG RUN) 1 GM in IV 1 EA IV ONE (14:00)
[2023-06-23] MEDS: KCL 10MEQ/100ML SWI (KRUN) 10 MEQ in IV 1 EA IV SCH ×5 (14:41→17:46)
[2023-06-23] MEDS: LEVEMIR (INSULIN DETEMIR) 1 UNITS/0.01ML SC SCH ×2 (15:29→21:20)
[2023-06-23] MEDS ORDERED: FUROSEMIDE injection 250 MG in D5W 225 ML IV SCH (17:00)
[2023-06-23] MEDS ORDERED: ACETAMINOPHEN 325 MG TAB PO ONE (17:45)
[2023-06-23] MEDS ORDERED: FUROSEMIDE 40MG/4ML VIAL IV ONE (19:00)
[2023-06-23] MEDS ORDERED: RAMELTEON 8 MG TAB (ROZEREM) PO ONE (22:00)
[2023-06-24] VITALS (17 sets, daily range): BP systolic 84–133; BP diastolic 55–84; TEMP 97.3–98.6; O2SAT 89–98
[2023-06-24] MEDS ORDERED: clonazePAM 0.5 MG TAB PO ONE (02:00)
[2023-06-24 04:19] LABS: HEMATOCRIT 34.6 % (36.0-47.0); HEMOGLOBIN 11.8 g/dl (12.0-15.5); MEAN CORPUSCULAR HEMOGLOBIN 30.6 pg (27.0-33.0); MEAN CORPUSCULAR HGB CONC 34.1 g/dl (32.0-36.5); MEAN CORPUSCULAR VOLUME 89.6 fl (80.0-96.0); PLATELET COUNT, AUTOMATED 275 10^3/uL (150-450); RED BLOOD COUNT 3.86 10^6/uL (4.00-5.40); WHITE BLOOD COUNT 16.3 10^3/uL (4.0-10.0)
[2023-06-24] MEDS: SYMBICORT 160/4.5MCG INHALER 6GM INH SCH ×2 (07:32→19:24)
[2023-06-24] MEDS ORDERED: predniSONE 5 MG TAB PO ONE (07:45)
[2023-06-24] MEDS: INSULIN LISPRO (NovoLOG) PER UNIT SC SCH ×4 (08:22→20:00)
[2023-06-24] MEDS: LEVEMIR (INSULIN DETEMIR) 1 UNITS/0.01ML SC SCH ×2 (08:23→20:01)
[2023-06-24] MEDS: APIXABAN 2.5 MG TAB (ELIQUIS) PO SCH ×2 (08:24→20:00)
[2023-06-24] MEDS: MAGNESIUM OXIDE 400MG TAB (MAG-OX) PO SCH (08:24)
[2023-06-24] MEDS: OMEPRAZOLE 20MG CAP PO SCH (08:24)
[2023-06-24] MEDS ORDERED: METOPROLOL TART 25 MG TABLET PO SCH (09:00)
[2023-06-24] MEDS ORDERED: TORSEMIDE 20 MG TAB PO SCH (09:00)
[2023-06-24] MEDS ORDERED: ENTRESTO 24-26MG TABLET (SACUBITRIL/VALSARTAN) PO SCH (09:00)
[2023-06-24] MEDS ORDERED: PILL CUTTER 1 EACH XX PRN (14:25)
[2023-06-24] MEDS: PROPRANOLOL 10 MG TAB PO SCH ×2 (15:05→19:59)
[2023-06-24] MEDS: NYSTATIN CREAM 15GM TOP PRN (16:30)
[2023-06-24] MEDS ORDERED: CHLORASEPTIC SPRAY MT PRN (16:50)
[2023-06-24] MEDS ORDERED: POTASSIUM CHLORIDE 10MEQ SR TABLET PO ONE ×2 (18:00→22:00)
[2023-06-24] MEDS: ENTRESTO 24-26MG TABLET (SACUBITRIL/VALSARTAN) PO SCH (20:00)
[2023-06-24] MEDS ORDERED: RAMELTEON 8 MG TAB (ROZEREM) PO ONE (22:00)
[2023-06-24] MEDS: ACETAMINOPHEN TAB 650MG DOSE (2X325MG) PO PRN (22:25)
[2023-06-24] MEDS ORDERED: ANALGESIC BALM CRM 3OZ TOP PRN (22:30)
[2023-06-25] VITALS (30 sets, daily range): BP systolic 83–105; BP diastolic 52–79; TEMP 97–98.3; O2SAT 89–99
[2023-06-25 05:09] LABS: BASO % 0.3 % (0.0-1.0); HEMATOCRIT 35.9 % (36.0-47.0); HEMOGLOBIN 11.9 g/dl (12.0-15.5); LYMPH % 9.6 % (24.0-44.0); MEAN CORPUSCULAR HEMOGLOBIN 30.4 pg (27.0-33.0); MEAN CORPUSCULAR HGB CONC 33.1 g/dl (32.0-36.5); MEAN CORPUSCULAR VOLUME 91.6 fl (80.0-96.0); MONO # 0.9 10^3/uL (0.0-0.8); MONO % 8.3 % (2.0-8.0); NEUTROPHILS # 8.3 10^3/uL (1.5-8.5); NEUTROPHILS % 78.9 % (36.0-66.0); PLATELET COUNT, AUTOMATED 247 10^3/uL (150-450); RED BLOOD COUNT 3.92 10^6/uL (4.00-5.40); WHITE BLOOD COUNT 10.6 10^3/uL (4.0-10.0)
[2023-06-25] MEDS: SYMBICORT 160/4.5MCG INHALER 6GM INH SCH ×2 (07:32→18:52)
[2023-06-25] MEDS: LEVEMIR (INSULIN DETEMIR) 1 UNITS/0.01ML SC SCH ×2 (08:54→20:22)
[2023-06-25] MEDS: INSULIN LISPRO (NovoLOG) PER UNIT SC SCH ×4 (08:54→20:22)
[2023-06-25] MEDS: ENTRESTO 24-26MG TABLET (SACUBITRIL/VALSARTAN) PO SCH ×2 (08:55→20:11)
[2023-06-25] MEDS: MAGNESIUM OXIDE 400MG TAB (MAG-OX) PO SCH (08:55)
[2023-06-25] MEDS: APIXABAN 2.5 MG TAB (ELIQUIS) PO SCH ×2 (08:56→20:11)
[2023-06-25] MEDS: LIDOCAINE 5% (LIDODERM) PATCH TD SCH (08:56)
[2023-06-25] MEDS: OMEPRAZOLE 20MG CAP PO SCH (08:56)
[2023-06-25] MEDS ORDERED: predniSONE 5 MG TAB PO SCH (09:00)
[2023-06-25] MEDS: VASOPRESSIN INJ 20 UNITS in NS 499 ML IV SCH ×2 (09:00→16:22)
[2023-06-25] MEDS: METOPROLOL TART 12.5 MG PER 1/2 TAB PO SCH ×2 (10:08→20:12)
[2023-06-25] MEDS ORDERED: SPIR1TAB34 PO (10:13)
[2023-06-25] MEDS ORDERED: POTA1TAB23 PO (10:13)
[2023-06-25] MEDS ORDERED: DILT120C89 PO (10:13)
[2023-06-25] MEDS ORDERED: GLIP5TAB17 PO (10:13)
[2023-06-25] MEDS ORDERED: MONT10TA97 PO (10:16)
[2023-06-25] MEDS ORDERED: ALBU8.5H INH (10:16)
[2023-06-25] MEDS ORDERED: VITA100093 PO (10:16)
[2023-06-25] MEDS ORDERED: PANT40TA29 PO (10:16)
[2023-06-25] MEDS ORDERED: ALBU2.5V10 INH (10:16)
[2023-06-25] MEDS ORDERED: HOME MED LIST COMPLETE! XX SCH (10:20)
[2023-06-25] MEDS: HYDROCORTISONE 100MG/2ML VIAL IV SCH ×2 (11:37→20:10)
[2023-06-25 15:30] LABS: BLOOD UREA NITROGEN 45 MG/DL (7-21); GLOMERULAR FILTRATION RATE 56.4 (>32); GLUCOSE, FASTING 132 MG/DL; POTASSIUM SERUM 4.8 MEQ/L (3.6-5.0); SODIUM LEVEL 134 MEQ/L (134-153)
[2023-06-25 15:31] LABS: ALBUMIN 3.4 G/DL (3.9-5.0); ALKALINE PHOSPHATASE 49 U/L (35-104); ALT/SGPT 32 U/L (1-33); AST/SGOT 24 U/L (5-40); BILIRUBIN,TOTAL < 0.7 MG/DL (0.2-1.3); CALCIUM LEVEL 8.3 MG/DL (8.8-10.2); CARBON DIOXIDE LEVEL 22 MEQ/L (22-30); CHLORIDE LEVEL 100 MEQ/L (98-107); TOTAL PROTEIN 5.4 G/DL (6.3-8.2)
[2023-06-25] MEDS: NYSTATIN CREAM 15GM TOP PRN (17:28)
[2023-06-26] VITALS (12 sets, daily range): BP systolic 96–152; BP diastolic 56–97; TEMP 97.2–97.6; O2SAT 93–98
[2023-06-26] MEDS: VASOPRESSIN INJ 20 UNITS in NS 499 ML IV SCH (01:40)
[2023-06-26] MEDS: HYDROCORTISONE 100MG/2ML VIAL IV SCH ×2 (05:07→17:16)
[2023-06-26] MEDS: ACETAMINOPHEN TAB 650MG DOSE (2X325MG) PO PRN ×2 (05:10→20:12)
[2023-06-26 05:53] LABS: CALCIUM LEVEL 8.5 MG/DL (8.3-10.6); CREATININE FOR GFR 0.99 MG/DL (0.55-1.30); MAGNESIUM LEVEL 2.6 MG/DL (1.8-2.4); PHOSPHORUS LEVEL 4.5 MG/DL (2.4-5.1); POTASSIUM SERUM 4.7 MMOL/L (3.5-5.1)
[2023-06-26] MEDS: SYMBICORT 160/4.5MCG INHALER 6GM INH SCH ×2 (07:32→20:15)
[2023-06-26] MEDS: ENTRESTO 24-26MG TABLET (SACUBITRIL/VALSARTAN) PO SCH (08:04)
[2023-06-26] MEDS: APIXABAN 2.5 MG TAB (ELIQUIS) PO SCH ×2 (08:05→20:10)
[2023-06-26] MEDS: OMEPRAZOLE 20MG CAP PO SCH (08:05)
[2023-06-26] MEDS: METOPROLOL TART 12.5 MG PER 1/2 TAB PO SCH ×2 (08:05→20:10)
[2023-06-26] MEDS: MAGNESIUM OXIDE 400MG TAB (MAG-OX) PO SCH ×2 (08:06→09:00)
[2023-06-26] MEDS: NYSTATIN CREAM 15GM TOP PRN (08:07)
[2023-06-26] MEDS: INSULIN LISPRO (NovoLOG) PER UNIT SC SCH ×4 (08:13→20:40)
[2023-06-26] MEDS: LEVEMIR (INSULIN DETEMIR) 1 UNITS/0.01ML SC SCH ×2 (08:14→20:40)
[2023-06-26] MEDS ORDERED: METOPROLOL TART 12.5 MG PER 1/2 TAB PO ONE (08:35)
[2023-06-26] MEDS: LIDOCAINE 5% (LIDODERM) PATCH TD SCH (10:23)
[2023-06-26 14:05] LABS: CALCIUM LEVEL 8.7 MG/DL (8.8-10.2); CREATININE FOR GFR 1.3 MG/DL (0.7-1.5); GLOMERULAR FILTRATION RATE 41.6 (>32); PHOSPHORUS LEVEL 3.8 MG/DL (2.5-4.5); POTASSIUM SERUM 4.6 MEQ/L (3.6-5.0)
[2023-06-26 14:06] LABS: ALBUMIN 4.1 G/DL (3.9-5.0); BILIRUBIN,TOTAL 0.9 MG/DL (0.2-1.3); FREE T4 1.85 NG/DL (0.93-1.70); MAGNESIUM LEVEL 2.8 MG/DL (1.7-2.2); THYROID STIMULATING HORMONE 0.2 UIU/ML (0.47-5.01); TOTAL PROTEIN 6.3 G/DL (6.3-8.2)
[2023-06-26 14:08] LABS: GLUCOSE, FASTING 410 MG/DL
[2023-06-26 14:09] LABS: ALT/SGPT 27 U/L (1-33); AST/SGOT 20 U/L (5-40); BLOOD UREA NITROGEN 45 MG/DL (7-21); CALCIUM LEVEL 8.9 MG/DL (8.8-10.2); CARBON DIOXIDE LEVEL 18 MEQ/L (22-30); CHLORIDE LEVEL 96 MEQ/L (98-107); CREATININE FOR GFR 1.1 MG/DL (0.7-1.5); GLOMERULAR FILTRATION RATE 50.5 (>32); POTASSIUM SERUM 4.1 MEQ/L (3.6-5.0); SODIUM LEVEL 131 MEQ/L (134-153)
[2023-06-26 14:10] LABS: ALBUMIN 4.2 G/DL (3.9-5.0); ALKALINE PHOSPHATASE 57 U/L (35-104); BILIRUBIN,TOTAL < 0.7 MG/DL (0.2-1.3); TOTAL PROTEIN 6.3 G/DL (6.3-8.2)
[2023-06-26 14:47] LABS: FREE T4 1.34 NG/DL (0.89-1.76); THYROID STIMULATING HORMONE 0.291 uIU/ML (0.55-4.78)
[2023-06-26] MEDS: DAPAGLIFLOZIN PROPANEDIOL 10MG TABLET (FARXIGA) PO SCH (16:00)
[2023-06-26] MEDS ORDERED: ENTRESTO 24-26MG TABLET (SACUBITRIL/VALSARTAN) PO SCH (21:00)
[2023-06-26] MEDS ORDERED: METOPROLOL TART 25 MG TABLET PO SCH (21:00)
[2023-06-27] VITALS (7 sets, daily range): BP systolic 113–135; BP diastolic 57–79; TEMP 96.7–97.5; O2SAT 95–98
[2023-06-27 04:35] LABS: BASO % 0.4 % (0.0-1.0); EOS # 0.1 10^3/uL (0.0-0.5); EOS % 1.3 % (0.0-3.0); HEMOGLOBIN 13.3 g/dl (12.0-15.5); LYMPH # 1.3 10^3/uL (1.5-5.0); LYMPH % 11.6 % (24.0-44.0); MEAN CORPUSCULAR HEMOGLOBIN 30.3 pg (27.0-33.0); MEAN CORPUSCULAR HGB CONC 32.4 g/dl (32.0-36.5); MEAN CORPUSCULAR VOLUME 93.4 fl (80.0-96.0); MONO # 1.1 10^3/uL (0.0-0.8); MONO % 9.7 % (2.0-8.0); NEUTROPHILS # 8.2 10^3/uL (1.5-8.5); NEUTROPHILS % 73.1 % (36.0-66.0); PLATELET COUNT, AUTOMATED 274 10^3/uL (150-450); RED BLOOD COUNT 4.39 10^6/uL (4.00-5.40); WHITE BLOOD COUNT 11.2 10^3/uL (4.0-10.0)
[2023-06-27] MEDS: HYDROCORTISONE 100MG/2ML VIAL IV SCH (04:38)
[2023-06-27 04:57] LABS: CALCIUM LEVEL 8.3 MG/DL (8.3-10.6); CREATININE FOR GFR 0.97 MG/DL (0.55-1.30); GLOMERULAR FILTRATION RATE 58.4 (>32); POTASSIUM SERUM 4.2 MMOL/L (3.5-5.1)
[2023-06-27] MEDS: INSULIN LISPRO (NovoLOG) PER UNIT SC SCH ×4 (07:08→20:44)
[2023-06-27] MEDS: SYMBICORT 160/4.5MCG INHALER 6GM INH SCH ×2 (07:29→20:05)
[2023-06-27] MEDS: APIXABAN 2.5 MG TAB (ELIQUIS) PO SCH ×2 (08:10→20:42)
[2023-06-27] MEDS: METOPROLOL TART 12.5 MG PER 1/2 TAB PO SCH ×3 (08:10→23:41)
[2023-06-27] MEDS: predniSONE 20 MG TAB PO SCH (08:10)
[2023-06-27] MEDS: OMEPRAZOLE 20MG CAP PO SCH (08:10)
[2023-06-27] MEDS: DAPAGLIFLOZIN PROPANEDIOL 10MG TABLET (FARXIGA) PO SCH (08:11)
[2023-06-27] MEDS: ENTRESTO 24-26MG TABLET (SACUBITRIL/VALSARTAN) PO SCH ×2 (08:11→20:42)
[2023-06-27] MEDS: LIDOCAINE 5% (LIDODERM) PATCH TD SCH (08:12)
[2023-06-27] MEDS: ACETAMINOPHEN TAB 650MG DOSE (2X325MG) PO PRN ×3 (08:19→20:43)
[2023-06-27] MEDS ORDERED: E-Z-PAQUE 96% w/w SUSP 176GM BTL As Ordered ONE (08:48)
[2023-06-27] MEDS ORDERED: VARIBAR NECTAR 40% w/v 240ML SUSP BTL As Ordered ONE (08:48)
[2023-06-27] MEDS ORDERED: BARIUM SULFATE 700 MG TABLET (E-Z-DISK) As Ordered ONE (08:48)
[2023-06-27] MEDS ORDERED: VARIBAR PUDDING 40% w/v 230ML TUBE As Ordered ONE (08:48)
[2023-06-27] MEDS: TORSEMIDE 20 MG TAB PO SCH (12:00)
[2023-06-27] MEDS ORDERED: METOPROLOL TART 12.5 MG PER 1/2 TAB PO SCH (17:00)
[2023-06-27 18:33] LABS: TOTAL T3 69.1 NG/DL (60.0-181.0)
[2023-06-27] MEDS: LEVEMIR (INSULIN DETEMIR) 1 UNITS/0.01ML SC SCH (20:43)
[2023-06-27] MEDS: NYSTATIN CREAM 15GM TOP PRN (20:45)
[2023-06-28] VITALS (8 sets, daily range): BP systolic 90–131; BP diastolic 52–85; TEMP 96.9–97.8; O2SAT 92–99
[2023-06-28 04:40] LABS: BASO % 0.1 % (0.0-1.0); EOS # 0.1 10^3/uL (0.0-0.5); EOS % 0.9 % (0.0-3.0); HEMATOCRIT 39.3 % (36.0-47.0); HEMOGLOBIN 12.7 g/dl (12.0-15.5); LYMPH # 1.3 10^3/uL (1.5-5.0); LYMPH % 11.8 % (24.0-44.0); MEAN CORPUSCULAR HEMOGLOBIN 30.1 pg (27.0-33.0); MEAN CORPUSCULAR HGB CONC 32.3 g/dl (32.0-36.5); MEAN CORPUSCULAR VOLUME 93.1 fl (80.0-96.0); MONO # 1.1 10^3/uL (0.0-0.8); MONO % 10.4 % (2.0-8.0); NEUTROPHILS # 8.2 10^3/uL (1.5-8.5); NEUTROPHILS % 74.9 % (36.0-66.0); PLATELET COUNT, AUTOMATED 259 10^3/uL (150-450); RED BLOOD COUNT 4.22 10^6/uL (4.00-5.40); WHITE BLOOD COUNT 10.9 10^3/uL (4.0-10.0)
[2023-06-28 05:12] LABS: CALCIUM LEVEL 7.7 MG/DL (8.3-10.6); GLOMERULAR FILTRATION RATE 56.4 (>32); MAGNESIUM LEVEL 2.1 MG/DL (1.8-2.4); POTASSIUM SERUM 3.6 MMOL/L (3.5-5.1)
[2023-06-28 05:14] LABS: THYROID STIMULATING HORMONE 1.341 uIU/ML (0.55-4.78); TOTAL T3 71.2 NG/DL (60.0-181.0)
[2023-06-28 05:15] LABS: FREE T4 1.35 NG/DL (0.89-1.76)
[2023-06-28] MEDS: METOPROLOL TART 12.5 MG PER 1/2 TAB PO SCH (06:33)
[2023-06-28] MEDS: SYMBICORT 160/4.5MCG INHALER 6GM INH SCH ×2 (07:27→19:45)
[2023-06-28 08:07] LABS: ALBUMIN 2.6 G/DL (3.2-5.2); BILIRUBIN,DIRECT 0.3 MG/DL (<0.4); BILIRUBIN,TOTAL 0.6 MG/DL (0.3-1.2)
[2023-06-28] MEDS: INSULIN LISPRO (NovoLOG) PER UNIT SC SCH ×4 (08:12→21:00)
[2023-06-28] MEDS: predniSONE 20 MG TAB PO SCH (08:13)
[2023-06-28] MEDS: APIXABAN 2.5 MG TAB (ELIQUIS) PO SCH (08:13)
[2023-06-28] MEDS: TORSEMIDE 20 MG TAB PO SCH (08:13)
[2023-06-28] MEDS: OMEPRAZOLE 20MG CAP PO SCH (08:13)
[2023-06-28] MEDS: DAPAGLIFLOZIN PROPANEDIOL 10MG TABLET (FARXIGA) PO SCH (08:13)
[2023-06-28] MEDS: ENTRESTO 24-26MG TABLET (SACUBITRIL/VALSARTAN) PO SCH ×2 (08:13→20:31)
[2023-06-28] MEDS: LIDOCAINE 5% (LIDODERM) PATCH TD SCH (08:15)
[2023-06-28] MEDS: ACETAMINOPHEN TAB 650MG DOSE (2X325MG) PO PRN ×3 (13:15→22:14)
[2023-06-28] MEDS: METOPROLOL TART 25 MG TABLET PO SCH ×3 (13:15→23:34)
[2023-06-28] MEDS: LEVEMIR (INSULIN DETEMIR) 1 UNITS/0.01ML SC SCH (20:30)
[2023-06-28] MEDS: ENOXAPARIN 100MG/1ML SYRINGE (J1650 PER 10MG) SC SCH (20:31)
[2023-06-29] VITALS (8 sets, daily range): BP systolic 92–145; BP diastolic 59–64; TEMP 96.7–98.6; O2SAT 95–100
[2023-06-29] MEDS: METOPROLOL TART 25 MG TABLET PO SCH ×4 (05:32→23:02)
[2023-06-29 06:30] LABS: BASO % 0.2 % (0.0-1.0); EOS # 0.1 10^3/uL (0.0-0.5); HEMATOCRIT 37.2 % (36.0-47.0); HEMOGLOBIN 12.2 g/dl (12.0-15.5); LYMPH # 1.7 10^3/uL (1.5-5.0); LYMPH % 15.3 % (24.0-44.0); MEAN CORPUSCULAR HEMOGLOBIN 30.3 pg (27.0-33.0); MEAN CORPUSCULAR HGB CONC 32.8 g/dl (32.0-36.5); MEAN CORPUSCULAR VOLUME 92.5 fl (80.0-96.0); MONO # 1.2 10^3/uL (0.0-0.8); MONO % 10.4 % (2.0-8.0); NEUTROPHILS % 71.6 % (36.0-66.0); PLATELET COUNT, AUTOMATED 257 10^3/uL (150-450); RED BLOOD COUNT 4.02 10^6/uL (4.00-5.40); WHITE BLOOD COUNT 11.2 10^3/uL (4.0-10.0)
[2023-06-29 06:54] LABS: CALCIUM LEVEL 8.1 MG/DL (8.3-10.6); CREATININE FOR GFR 0.99 MG/DL (0.55-1.30); POTASSIUM SERUM 3.2 MMOL/L (3.5-5.1)
[2023-06-29] MEDS ORDERED: POTASSIUM CHLORIDE 10MEQ SR TABLET PO ONE ×2 (07:00→10:00)
[2023-06-29] MEDS: INSULIN LISPRO (NovoLOG) PER UNIT SC SCH ×4 (07:30→20:58)
[2023-06-29] MEDS: SYMBICORT 160/4.5MCG INHALER 6GM INH SCH ×2 (07:50→19:19)
[2023-06-29] MEDS: TORSEMIDE 20 MG TAB PO SCH (08:35)
[2023-06-29] MEDS: DAPAGLIFLOZIN PROPANEDIOL 10MG TABLET (FARXIGA) PO SCH (08:35)
[2023-06-29] MEDS: predniSONE 20 MG TAB PO SCH (08:35)
[2023-06-29] MEDS: ENTRESTO 24-26MG TABLET (SACUBITRIL/VALSARTAN) PO SCH ×2 (08:35→20:57)
[2023-06-29] MEDS: OMEPRAZOLE 20MG CAP PO SCH (08:36)
[2023-06-29] MEDS: LIDOCAINE 5% (LIDODERM) PATCH TD SCH (08:36)
[2023-06-29] MEDS: ENOXAPARIN 100MG/1ML SYRINGE (J1650 PER 10MG) SC SCH ×2 (08:36→20:59)
[2023-06-29] MEDS: ACETAMINOPHEN TAB 650MG DOSE (2X325MG) PO PRN ×2 (08:37→23:09)
[2023-06-29 12:23] LABS: INR 1.34; PROTHROMBIN TIME 16.2 SECONDS (12.5-14.5)
[2023-06-29] MEDS ORDERED: LOVE0.8I SC (15:08)
[2023-06-29] MEDS: LEVEMIR (INSULIN DETEMIR) 1 UNITS/0.01ML SC SCH (20:58)
[2023-06-30 03:41] LABS: BASO % 0.1 % (0.0-1.0); EOS # 0.1 10^3/uL (0.0-0.5); EOS % 0.7 % (0.0-3.0); HEMATOCRIT 35.8 % (36.0-47.0); HEMOGLOBIN 11.7 g/dl (12.0-15.5); LYMPH # 1.4 10^3/uL (1.5-5.0); LYMPH % 14.3 % (24.0-44.0); MEAN CORPUSCULAR HEMOGLOBIN 30.4 pg (27.0-33.0); MEAN CORPUSCULAR HGB CONC 32.7 g/dl (32.0-36.5); MONO # 1.1 10^3/uL (0.0-0.8); MONO % 11.7 % (2.0-8.0); NEUTROPHILS # 6.9 10^3/uL (1.5-8.5); NEUTROPHILS % 72.1 % (36.0-66.0); PLATELET COUNT, AUTOMATED 243 10^3/uL (150-450); RED BLOOD COUNT 3.85 10^6/uL (4.00-5.40); WHITE BLOOD COUNT 9.6 10^3/uL (4.0-10.0)
[2023-06-30 04:00] VITALS: BP 122/62; TEMP 97.4; O2SAT 96
[2023-06-30 04:18] LABS: CREATININE FOR GFR 0.99 MG/DL (0.55-1.30); POTASSIUM SERUM 3.7 MMOL/L (3.5-5.1)
[2023-06-30] MEDS: METOPROLOL TART 25 MG TABLET PO SCH (06:21)
[2023-06-30] MEDS: SYMBICORT 160/4.5MCG INHALER 6GM INH SCH ×2 (07:08→19:17)
[2023-06-30] MEDS: INSULIN LISPRO (NovoLOG) PER UNIT SC SCH ×4 (07:30→20:08)
[2023-06-30 08:05] VITALS: BP 100/55; TEMP 96.9; O2SAT 95
[2023-06-30] MEDS: predniSONE 10MG TAB PO SCH (08:59)
[2023-06-30] MEDS: ACETAMINOPHEN TAB 650MG DOSE (2X325MG) PO PRN ×4 (09:00→22:22)
[2023-06-30] MEDS: TORSEMIDE 20 MG TAB PO SCH (09:00)
[2023-06-30] MEDS: DAPAGLIFLOZIN PROPANEDIOL 10MG TABLET (FARXIGA) PO SCH (09:00)
[2023-06-30] MEDS: ENTRESTO 24-26MG TABLET (SACUBITRIL/VALSARTAN) PO SCH ×2 (09:00→20:08)
[2023-06-30] MEDS: ENOXAPARIN 100MG/1ML SYRINGE (J1650 PER 10MG) SC SCH ×2 (09:01→20:18)
[2023-06-30] MEDS: LIDOCAINE 5% (LIDODERM) PATCH TD SCH (09:01)
[2023-06-30] MEDS: OMEPRAZOLE 20MG CAP PO SCH (09:01)
[2023-06-30] MEDS: METOPROLOL TART 12.5 MG PER 1/2 TAB PO SCH ×3 (12:24→23:44)
[2023-06-30 15:15] VITALS: BP 115/62; TEMP 97.9; O2SAT 96
[2023-06-30 19:44] VITALS: BP 92/62; TEMP 97.7; O2SAT 95
[2023-06-30] MEDS: LEVEMIR (INSULIN DETEMIR) 1 UNITS/0.01ML SC SCH (20:18)
[2023-06-30] MEDS ORDERED: RAMELTEON 8 MG TAB (ROZEREM) PO PRN (23:45)
[2023-07-01 04:57] VITALS: BP 114/70; TEMP 97.5; O2SAT 97
[2023-07-01] MEDS: METOPROLOL TART 12.5 MG PER 1/2 TAB PO SCH ×3 (05:22→18:01)
[2023-07-01] MEDS: ACETAMINOPHEN TAB 650MG DOSE (2X325MG) PO PRN ×3 (06:06→19:54)
[2023-07-01 06:49] LABS: BASO % 0.2 % (0.0-1.0); EOS # 0.1 10^3/uL (0.0-0.5); EOS % 0.9 % (0.0-3.0); HEMATOCRIT 38.6 % (36.0-47.0); HEMOGLOBIN 12.4 g/dl (12.0-15.5); LYMPH # 1.3 10^3/uL (1.5-5.0); LYMPH % 13.5 % (24.0-44.0); MEAN CORPUSCULAR HEMOGLOBIN 30.3 pg (27.0-33.0); MEAN CORPUSCULAR HGB CONC 32.1 g/dl (32.0-36.5); MEAN CORPUSCULAR VOLUME 94.4 fl (80.0-96.0); MONO # 0.9 10^3/uL (0.0-0.8); MONO % 9.2 % (2.0-8.0); NEUTROPHILS # 7.2 10^3/uL (1.5-8.5); NEUTROPHILS % 74.9 % (36.0-66.0); PLATELET COUNT, AUTOMATED 225 10^3/uL (150-450); RED BLOOD COUNT 4.09 10^6/uL (4.00-5.40); WHITE BLOOD COUNT 9.6 10^3/uL (4.0-10.0)
[2023-07-01 07:11] LABS: CALCIUM LEVEL 7.9 MG/DL (8.3-10.6); CREATININE FOR GFR 1.05 MG/DL (0.55-1.30); GLOMERULAR FILTRATION RATE 53.3 (>32); POTASSIUM SERUM 3.4 MMOL/L (3.5-5.1)
[2023-07-01] MEDS: INSULIN LISPRO (NovoLOG) PER UNIT SC SCH ×4 (07:30→19:49)
[2023-07-01] MEDS: SYMBICORT 160/4.5MCG INHALER 6GM INH SCH ×2 (07:37→20:24)
[2023-07-01] MEDS: ENTRESTO 24-26MG TABLET (SACUBITRIL/VALSARTAN) PO SCH ×2 (09:00→19:48)
[2023-07-01] MEDS ORDERED: POTASSIUM CHLORIDE 10MEQ SR TABLET PO SCH (09:00)
[2023-07-01] MEDS: DAPAGLIFLOZIN PROPANEDIOL 10MG TABLET (FARXIGA) PO SCH (09:38)
[2023-07-01] MEDS: predniSONE 10MG TAB PO SCH (09:39)
[2023-07-01] MEDS: TORSEMIDE 20 MG TAB PO SCH (09:39)
[2023-07-01] MEDS: LIDOCAINE 5% (LIDODERM) PATCH TD SCH (09:40)
[2023-07-01] MEDS: OMEPRAZOLE 20MG CAP PO SCH (09:40)
[2023-07-01] MEDS: ENOXAPARIN 100MG/1ML SYRINGE (J1650 PER 10MG) SC SCH ×2 (09:40→20:02)
[2023-07-01] MEDS ORDERED: FARX1TAB3 PO (13:17)
[2023-07-01] MEDS ORDERED: ENTR1TAB PO (13:17)
[2023-07-01 14:00] VITALS: BP 109/69; TEMP 97.3; O2SAT 98
[2023-07-01] MEDS: FUROSEMIDE 40MG/4ML VIAL IV SCH (18:00)
[2023-07-01 19:34] VITALS: BP 104/73; TEMP 97.7; O2SAT 95
[2023-07-01] MEDS: POTASSIUM CHLORIDE 10MEQ SR TABLET PO SCH (20:01)
[2023-07-01] MEDS: LEVEMIR (INSULIN DETEMIR) 1 UNITS/0.01ML SC SCH (20:02)
[2023-07-02] MEDS: METOPROLOL TART 12.5 MG PER 1/2 TAB PO SCH ×4 (00:55→17:25)
[2023-07-02] MEDS: ACETAMINOPHEN TAB 650MG DOSE (2X325MG) PO PRN ×2 (00:56→21:09)
[2023-07-02 05:27] VITALS: BP 108/75; TEMP 97.5; O2SAT 95
[2023-07-02 07:17] LABS: BASO % 0.1 % (0.0-1.0); EOS # 0.1 10^3/uL (0.0-0.5); EOS % 1.2 % (0.0-3.0); HEMATOCRIT 37.9 % (36.0-47.0); HEMOGLOBIN 12.3 g/dl (12.0-15.5); LYMPH % 10.5 % (24.0-44.0); MEAN CORPUSCULAR HEMOGLOBIN 30.7 pg (27.0-33.0); MEAN CORPUSCULAR HGB CONC 32.5 g/dl (32.0-36.5); MEAN CORPUSCULAR VOLUME 94.5 fl (80.0-96.0); MONO # 0.8 10^3/uL (0.0-0.8); MONO % 8.6 % (2.0-8.0); NEUTROPHILS # 7.3 10^3/uL (1.5-8.5); NEUTROPHILS % 78.5 % (36.0-66.0); PLATELET COUNT, AUTOMATED 222 10^3/uL (150-450); RED BLOOD COUNT 4.01 10^6/uL (4.00-5.40); WHITE BLOOD COUNT 9.3 10^3/uL (4.0-10.0)
[2023-07-02] MEDS: INSULIN LISPRO (NovoLOG) PER UNIT SC SCH ×4 (07:30→20:30)
[2023-07-02] MEDS: SYMBICORT 160/4.5MCG INHALER 6GM INH SCH ×2 (07:41→20:36)
[2023-07-02 07:43] LABS: CREATININE FOR GFR 1.05 MG/DL (0.55-1.30); GLOMERULAR FILTRATION RATE 53.3 (>32); POTASSIUM SERUM 3.4 MMOL/L (3.5-5.1)
[2023-07-02] MEDS: FUROSEMIDE 40MG/4ML VIAL IV SCH ×2 (09:00→17:28)
[2023-07-02] MEDS: ENTRESTO 24-26MG TABLET (SACUBITRIL/VALSARTAN) PO SCH ×2 (09:05→20:31)
[2023-07-02] MEDS: predniSONE 10MG TAB PO SCH (09:05)
[2023-07-02] MEDS: DAPAGLIFLOZIN PROPANEDIOL 10MG TABLET (FARXIGA) PO SCH (09:06)
[2023-07-02] MEDS: ENOXAPARIN 100MG/1ML SYRINGE (J1650 PER 10MG) SC SCH ×2 (09:06→20:31)
[2023-07-02] MEDS: POTASSIUM CHLORIDE 10MEQ SR TABLET PO SCH ×2 (09:06→20:30)
[2023-07-02] MEDS: OMEPRAZOLE 20MG CAP PO SCH (09:06)
[2023-07-02] MEDS: LIDOCAINE 5% (LIDODERM) PATCH TD SCH (09:07)
[2023-07-02] MEDS ORDERED: E-Z-PAQUE 96% w/w SUSP 176GM BTL As Ordered ONE (11:41)
[2023-07-02] MEDS ORDERED: VARIBAR NECTAR 40% w/v 240ML SUSP BTL As Ordered ONE (11:41)
[2023-07-02] MEDS ORDERED: VARIBAR PUDDING 40% w/v 230ML TUBE As Ordered ONE (11:41)
[2023-07-02] MEDS ORDERED: BARIUM SULFATE 700 MG TABLET (E-Z-DISK) As Ordered ONE (11:41)
[2023-07-02 14:00] VITALS: BP 111/75; TEMP 97.5; O2SAT 96
[2023-07-02] MEDS ORDERED: WARFARIN SOD 5MG TAB PO ONE (17:00)
[2023-07-02 19:44] LABS: FREE T4 1.32 NG/DL (0.89-1.76); THYROID STIMULATING HORMONE 2.678 uIU/ML (0.55-4.78); TOTAL T3 98.5 NG/DL (60.0-181.0)
[2023-07-02 20:09] VITALS: BP 113/76; TEMP 97; O2SAT 94
[2023-07-02] MEDS: LEVEMIR (INSULIN DETEMIR) 1 UNITS/0.01ML SC SCH (20:30)
[2023-07-03 00:15] VITALS: BP 113/73
[2023-07-03] MEDS: METOPROLOL TART 12.5 MG PER 1/2 TAB PO SCH ×4 (00:15→23:48)
[2023-07-03 05:15] VITALS: BP 113/72; TEMP 97.5; O2SAT 94
[2023-07-03 07:04] LABS: BASO % 0.1 % (0.0-1.0); EOS # 0.1 10^3/uL (0.0-0.5); HEMATOCRIT 36.2 % (36.0-47.0); HEMOGLOBIN 11.7 g/dl (12.0-15.5); LYMPH # 1.1 10^3/uL (1.5-5.0); LYMPH % 13.7 % (24.0-44.0); MEAN CORPUSCULAR HEMOGLOBIN 30.6 pg (27.0-33.0); MEAN CORPUSCULAR HGB CONC 32.3 g/dl (32.0-36.5); MEAN CORPUSCULAR VOLUME 94.8 fl (80.0-96.0); MONO # 0.8 10^3/uL (0.0-0.8); MONO % 9.6 % (2.0-8.0); NEUTROPHILS % 74.5 % (36.0-66.0); PLATELET COUNT, AUTOMATED 210 10^3/uL (150-450); RED BLOOD COUNT 3.82 10^6/uL (4.00-5.40); WHITE BLOOD COUNT 8.1 10^3/uL (4.0-10.0)
[2023-07-03] MEDS: INSULIN LISPRO (NovoLOG) PER UNIT SC SCH ×4 (07:30→20:29)
[2023-07-03 07:34] LABS: INR 1.28; PROTHROMBIN TIME 15.6 SECONDS (12.5-14.5)
[2023-07-03 07:35] LABS: PARTIAL THROMBOPLASTIN TIME 41.1 SECONDS (24.8-34.2)
[2023-07-03 07:37] LABS: CALCIUM LEVEL 7.9 MG/DL (8.3-10.6); CREATININE FOR GFR 1.08 MG/DL (0.55-1.30); GLOMERULAR FILTRATION RATE 51.6 (>32); POTASSIUM SERUM 3.4 MMOL/L (3.5-5.1)
[2023-07-03] MEDS: SYMBICORT 160/4.5MCG INHALER 6GM INH SCH ×2 (07:47→19:32)
[2023-07-03] MEDS: FUROSEMIDE 40MG/4ML VIAL IV SCH ×2 (09:34→17:00)
[2023-07-03] MEDS: ENOXAPARIN 100MG/1ML SYRINGE (J1650 PER 10MG) SC SCH ×2 (09:34→20:30)
[2023-07-03] MEDS: POTASSIUM CHLORIDE 10MEQ SR TABLET PO SCH ×2 (09:35→20:28)
[2023-07-03] MEDS: OMEPRAZOLE 20MG CAP PO SCH (09:35)
[2023-07-03] MEDS: DAPAGLIFLOZIN PROPANEDIOL 10MG TABLET (FARXIGA) PO SCH (09:35)
[2023-07-03] MEDS: ENTRESTO 24-26MG TABLET (SACUBITRIL/VALSARTAN) PO SCH ×2 (09:35→20:29)
[2023-07-03] MEDS: LIDOCAINE 5% (LIDODERM) PATCH TD SCH (09:35)
[2023-07-03] MEDS: ACETAMINOPHEN TAB 650MG DOSE (2X325MG) PO PRN ×2 (09:44→20:28)
[2023-07-03 11:34] VITALS: BP 93/59
[2023-07-03] MEDS ORDERED: METOPROLOL TART 25 MG TABLET PO SCH (12:00)
[2023-07-03 14:30] VITALS: BP 101/64; TEMP 98; O2SAT 96
[2023-07-03] MEDS ORDERED: WARFARIN SOD 5MG TAB PO ONE (17:00)
[2023-07-03 17:09] LABS: ACETYLCHOLINE RCPTOR BINDING A < 0.03 nmol/L (0.00-0.24)
[2023-07-03 17:17] VITALS: BP 98/56
[2023-07-03] MEDS: LEVEMIR (INSULIN DETEMIR) 1 UNITS/0.01ML SC SCH (20:29)
[2023-07-03 20:36] VITALS: BP 116/68; TEMP 97.7; O2SAT 94
[2023-07-04 05:22] VITALS: BP 109/65; TEMP 97.5; O2SAT 95
[2023-07-04] MEDS: METOPROLOL TART 12.5 MG PER 1/2 TAB PO SCH ×3 (05:22→17:12)
[2023-07-04 06:21] LABS: BASO % 0.4 % (0.0-1.0); EOS # 0.1 10^3/uL (0.0-0.5); EOS % 1.4 % (0.0-3.0); HEMATOCRIT 37.7 % (36.0-47.0); HEMOGLOBIN 11.9 g/dl (12.0-15.5); LYMPH # 1.2 10^3/uL (1.5-5.0); LYMPH % 14.6 % (24.0-44.0); MEAN CORPUSCULAR HEMOGLOBIN 30.8 pg (27.0-33.0); MEAN CORPUSCULAR HGB CONC 31.6 g/dl (32.0-36.5); MEAN CORPUSCULAR VOLUME 97.7 fl (80.0-96.0); MONO # 0.8 10^3/uL (0.0-0.8); MONO % 9.6 % (2.0-8.0); NEUTROPHILS # 5.9 10^3/uL (1.5-8.5); NEUTROPHILS % 72.5 % (36.0-66.0); PLATELET COUNT, AUTOMATED 230 10^3/uL (150-450); RED BLOOD COUNT 3.86 10^6/uL (4.00-5.40); WHITE BLOOD COUNT 8.1 10^3/uL (4.0-10.0)
[2023-07-04 06:28] LABS: INR 1.79; PROTHROMBIN TIME 20.2 SECONDS (12.5-14.5)
[2023-07-04 06:30] LABS: PARTIAL THROMBOPLASTIN TIME 52.4 SECONDS (24.8-34.2)
[2023-07-04 06:50] LABS: CALCIUM LEVEL 8.2 MG/DL (8.3-10.6); CREATININE FOR GFR 1.13 MG/DL (0.55-1.30); POTASSIUM SERUM 3.7 MMOL/L (3.5-5.1)
[2023-07-04] MEDS: SYMBICORT 160/4.5MCG INHALER 6GM INH SCH ×2 (07:15→20:06)
[2023-07-04] MEDS: POTASSIUM CHLORIDE 10MEQ SR TABLET PO SCH ×2 (07:48→21:01)
[2023-07-04] MEDS: DAPAGLIFLOZIN PROPANEDIOL 10MG TABLET (FARXIGA) PO SCH (07:49)
[2023-07-04] MEDS: OMEPRAZOLE 20MG CAP PO SCH (07:49)
[2023-07-04] MEDS: ENTRESTO 24-26MG TABLET (SACUBITRIL/VALSARTAN) PO SCH ×2 (07:50→20:48)
[2023-07-04] MEDS: ENOXAPARIN 100MG/1ML SYRINGE (J1650 PER 10MG) SC SCH ×2 (07:51→21:02)
[2023-07-04] MEDS: INSULIN LISPRO (NovoLOG) PER UNIT SC SCH ×4 (07:51→20:50)
[2023-07-04] MEDS: FUROSEMIDE 40MG/4ML VIAL IV SCH ×2 (07:51→17:13)
[2023-07-04] MEDS: LIDOCAINE 5% (LIDODERM) PATCH TD SCH (07:52)
[2023-07-04 08:14] VITALS: BP 113/81
[2023-07-04] MEDS: ACETAMINOPHEN TAB 650MG DOSE (2X325MG) PO PRN ×3 (11:53→21:56)
[2023-07-04] MEDS ORDERED: WARFARIN SOD 5MG TAB PO SCH (17:00)
[2023-07-04 20:11] VITALS: BP 108/71; TEMP 97.7; O2SAT 96
[2023-07-04] MEDS: LEVEMIR (INSULIN DETEMIR) 1 UNITS/0.01ML SC SCH (20:50)
[2023-07-05 00:44] VITALS: BP 106/72
[2023-07-05] MEDS: METOPROLOL TART 12.5 MG PER 1/2 TAB PO SCH ×4 (00:53→17:47)
[2023-07-05 05:56] LABS: BASO % 0.3 % (0.0-1.0); EOS # 0.1 10^3/uL (0.0-0.5); EOS % 1.6 % (0.0-3.0); HEMATOCRIT 35.9 % (36.0-47.0); HEMOGLOBIN 11.6 g/dl (12.0-15.5); LYMPH # 1.1 10^3/uL (1.5-5.0); LYMPH % 14.5 % (24.0-44.0); MEAN CORPUSCULAR HEMOGLOBIN 30.9 pg (27.0-33.0); MEAN CORPUSCULAR HGB CONC 32.3 g/dl (32.0-36.5); MEAN CORPUSCULAR VOLUME 95.5 fl (80.0-96.0); MONO # 0.8 10^3/uL (0.0-0.8); MONO % 11.1 % (2.0-8.0); NEUTROPHILS # 5.5 10^3/uL (1.5-8.5); NEUTROPHILS % 71.7 % (36.0-66.0); PLATELET COUNT, AUTOMATED 207 10^3/uL (150-450); RED BLOOD COUNT 3.76 10^6/uL (4.00-5.40); WHITE BLOOD COUNT 7.6 10^3/uL (4.0-10.0)
[2023-07-05 06:08] LABS: INR 3.6; PROTHROMBIN TIME 34.5 SECONDS (12.5-14.5)
[2023-07-05 06:09] LABS: PARTIAL THROMBOPLASTIN TIME 70.5 SECONDS (24.8-34.2)
[2023-07-05 06:11] VITALS: BP 112/73; TEMP 97.7; O2SAT 96
[2023-07-05 06:26] LABS: CALCIUM LEVEL 8.4 MG/DL (8.3-10.6); CREATININE FOR GFR 1.1 MG/DL (0.55-1.30); GLOMERULAR FILTRATION RATE 50.5 (>32); POTASSIUM SERUM 3.9 MMOL/L (3.5-5.1)
[2023-07-05] MEDS: SYMBICORT 160/4.5MCG INHALER 6GM INH SCH ×2 (07:24→19:12)
[2023-07-05] MEDS: INSULIN LISPRO (NovoLOG) PER UNIT SC SCH ×4 (08:48→21:00)
[2023-07-05] MEDS: ENTRESTO 24-26MG TABLET (SACUBITRIL/VALSARTAN) PO SCH ×2 (08:49→21:00)
[2023-07-05] MEDS: OMEPRAZOLE 20MG CAP PO SCH (08:49)
[2023-07-05] MEDS: FUROSEMIDE 20 MG TAB PO SCH ×2 (08:49→17:46)
[2023-07-05] MEDS: POTASSIUM CHLORIDE 10MEQ SR TABLET PO SCH ×2 (08:49→21:42)
[2023-07-05] MEDS: LIDOCAINE 5% (LIDODERM) PATCH TD SCH (08:50)
[2023-07-05] MEDS: ACETAMINOPHEN TAB 650MG DOSE (2X325MG) PO PRN ×2 (08:50→21:42)
[2023-07-05] MEDS: DAPAGLIFLOZIN PROPANEDIOL 10MG TABLET (FARXIGA) PO SCH (08:50)
[2023-07-05 21:06] VITALS: BP 115/69; TEMP 97.7; O2SAT 96
[2023-07-05] MEDS: LEVEMIR (INSULIN DETEMIR) 1 UNITS/0.01ML SC SCH (21:43)
[2023-07-06] VITALS: BP 138/98
[2023-07-06] MEDS: METOPROLOL TART 12.5 MG PER 1/2 TAB PO SCH ×4 (00:21→17:33)
[2023-07-06 06:10] LABS: HEMATOCRIT 36.5 % (36.0-47.0); HEMOGLOBIN 11.7 g/dl (12.0-15.5); MEAN CORPUSCULAR HEMOGLOBIN 30.4 pg (27.0-33.0); MEAN CORPUSCULAR HGB CONC 32.1 g/dl (32.0-36.5); MEAN CORPUSCULAR VOLUME 94.8 fl (80.0-96.0); PLATELET COUNT, AUTOMATED 209 10^3/uL (150-450); RED BLOOD COUNT 3.85 10^6/uL (4.00-5.40); WHITE BLOOD COUNT 6.3 10^3/uL (4.0-10.0)
[2023-07-06 06:23] LABS: INR 3.63; PROTHROMBIN TIME 34.8 SECONDS (12.5-14.5)
[2023-07-06 06:24] LABS: PARTIAL THROMBOPLASTIN TIME 53.4 SECONDS (24.8-34.2)
[2023-07-06 06:35] LABS: ALBUMIN 2.7 G/DL (3.2-5.2); BILIRUBIN,TOTAL 0.5 MG/DL (0.3-1.2); CALCIUM LEVEL 8.5 MG/DL (8.3-10.6); CREATININE FOR GFR 1.13 MG/DL (0.55-1.30); POTASSIUM SERUM 3.6 MMOL/L (3.5-5.1); TOTAL PROTEIN 5.4 G/DL (5.7-8.2)
[2023-07-06 06:40] VITALS: BP 105/67; TEMP 97.5; O2SAT 96
[2023-07-06] MEDS: SYMBICORT 160/4.5MCG INHALER 6GM INH SCH ×2 (08:24→19:12)
[2023-07-06] MEDS: FUROSEMIDE 20 MG TAB PO SCH ×2 (08:37→17:31)
[2023-07-06] MEDS: ENTRESTO 24-26MG TABLET (SACUBITRIL/VALSARTAN) PO SCH ×2 (08:37→21:00)
[2023-07-06] MEDS: INSULIN LISPRO (NovoLOG) PER UNIT SC SCH ×4 (08:37→21:00)
[2023-07-06] MEDS: DAPAGLIFLOZIN PROPANEDIOL 10MG TABLET (FARXIGA) PO SCH (08:37)
[2023-07-06] MEDS: OMEPRAZOLE 20MG CAP PO SCH (08:37)
[2023-07-06] MEDS: LIDOCAINE 5% (LIDODERM) PATCH TD SCH (08:37)
[2023-07-06] MEDS: CEPHALEXIN 500 MG CAP PO SCH ×4 (08:37→21:31)
[2023-07-06] MEDS: POTASSIUM CHLORIDE 10MEQ SR TABLET PO SCH ×2 (08:38→21:31)
[2023-07-06] MEDS: ACETAMINOPHEN TAB 650MG DOSE (2X325MG) PO PRN ×3 (08:40→22:03)
[2023-07-06 21:26] VITALS: BP 102/63; TEMP 97.9; O2SAT 99
[2023-07-06] MEDS: LEVEMIR (INSULIN DETEMIR) 1 UNITS/0.01ML SC SCH (21:33)
[2023-07-06] MEDS: NYSTATIN CREAM 15GM TOP PRN (22:47)
[2023-07-07] MEDS: METOPROLOL TART 12.5 MG PER 1/2 TAB PO SCH ×4 (00:58→17:06)
[2023-07-07 06:05] VITALS: BP 106/66; TEMP 97.9; O2SAT 97
[2023-07-07 06:34] LABS: HEMATOCRIT 35.2 % (36.0-47.0); HEMOGLOBIN 11.2 g/dl (12.0-15.5); MEAN CORPUSCULAR HEMOGLOBIN 30.4 pg (27.0-33.0); MEAN CORPUSCULAR HGB CONC 31.8 g/dl (32.0-36.5); MEAN CORPUSCULAR VOLUME 95.7 fl (80.0-96.0); PLATELET COUNT, AUTOMATED 216 10^3/uL (150-450); RED BLOOD COUNT 3.68 10^6/uL (4.00-5.40); WHITE BLOOD COUNT 6.6 10^3/uL (4.0-10.0)
[2023-07-07 06:39] LABS: INR 3.29; PARTIAL THROMBOPLASTIN TIME 47.1 SECONDS (24.8-34.2); PROTHROMBIN TIME 32.2 SECONDS (12.5-14.5)
[2023-07-07 06:47] LABS: ALBUMIN 2.6 G/DL (3.2-5.2); BILIRUBIN,TOTAL 0.5 MG/DL (0.3-1.2); CALCIUM LEVEL 7.9 MG/DL (8.3-10.6); GLOMERULAR FILTRATION RATE 56.4 (>32); POTASSIUM SERUM 3.2 MMOL/L (3.5-5.1); TOTAL PROTEIN 5.3 G/DL (5.7-8.2)
[2023-07-07] MEDS: SYMBICORT 160/4.5MCG INHALER 6GM INH SCH ×2 (08:20→19:45)
[2023-07-07] MEDS: INSULIN LISPRO (NovoLOG) PER UNIT SC SCH ×4 (08:28→21:00)
[2023-07-07] MEDS: ENTRESTO 24-26MG TABLET (SACUBITRIL/VALSARTAN) PO SCH ×2 (08:42→20:54)
[2023-07-07] MEDS: LIDOCAINE 5% (LIDODERM) PATCH TD SCH (08:42)
[2023-07-07] MEDS: CEPHALEXIN 500 MG CAP PO SCH ×4 (08:42→20:55)
[2023-07-07] MEDS: POTASSIUM CHLORIDE 10MEQ SR TABLET PO SCH ×2 (08:43→20:56)
[2023-07-07] MEDS: ACETAMINOPHEN TAB 650MG DOSE (2X325MG) PO PRN ×3 (08:43→20:56)
[2023-07-07] MEDS: FUROSEMIDE 20 MG TAB PO SCH ×2 (08:43→17:05)
[2023-07-07] MEDS: DAPAGLIFLOZIN PROPANEDIOL 10MG TABLET (FARXIGA) PO SCH (08:44)
[2023-07-07] MEDS: OMEPRAZOLE 20MG CAP PO SCH (09:28)
[2023-07-07 20:55] VITALS: BP 112/67
[2023-07-07] MEDS: LEVEMIR (INSULIN DETEMIR) 1 UNITS/0.01ML SC SCH (21:00)
[2023-07-07] MEDS: NYSTATIN CREAM 15GM TOP PRN (21:02)
[2023-07-08 00:01] VITALS: BP 110/66
[2023-07-08] MEDS: METOPROLOL TART 12.5 MG PER 1/2 TAB PO SCH ×4 (00:02→17:04)
[2023-07-08] MEDS: ACETAMINOPHEN TAB 650MG DOSE (2X325MG) PO PRN ×4 (01:06→21:15)
[2023-07-08 05:20] VITALS: BP 109/65; TEMP 97.9; O2SAT 94
[2023-07-08 05:42] LABS: HEMATOCRIT 34.7 % (36.0-47.0); HEMOGLOBIN 11.4 g/dl (12.0-15.5); MEAN CORPUSCULAR HEMOGLOBIN 31.1 pg (27.0-33.0); MEAN CORPUSCULAR HGB CONC 32.9 g/dl (32.0-36.5); MEAN CORPUSCULAR VOLUME 94.8 fl (80.0-96.0); PLATELET COUNT, AUTOMATED 217 10^3/uL (150-450); RED BLOOD COUNT 3.66 10^6/uL (4.00-5.40); WHITE BLOOD COUNT 5.6 10^3/uL (4.0-10.0)
[2023-07-08 06:03] LABS: INR 2.81; PROTHROMBIN TIME 28.6 SECONDS (12.5-14.5)
[2023-07-08 06:04] LABS: PARTIAL THROMBOPLASTIN TIME 44.1 SECONDS (24.8-34.2)
[2023-07-08 06:10] LABS: ALBUMIN 2.7 G/DL (3.2-5.2); BILIRUBIN,TOTAL 0.5 MG/DL (0.3-1.2); CALCIUM LEVEL 7.9 MG/DL (8.3-10.6); CREATININE FOR GFR 0.98 MG/DL (0.55-1.30); GLOMERULAR FILTRATION RATE 57.7 (>32); POTASSIUM SERUM 3.1 MMOL/L (3.5-5.1); TOTAL PROTEIN 5.3 G/DL (5.7-8.2)
[2023-07-08] MEDS ORDERED: POTASSIUM CHLORIDE 10MEQ SR TABLET PO ONE (07:00)
[2023-07-08] MEDS: SYMBICORT 160/4.5MCG INHALER 6GM INH SCH ×2 (07:53→20:07)
[2023-07-08] MEDS: CEPHALEXIN 500 MG CAP PO SCH ×4 (08:24→21:19)
[2023-07-08] MEDS: FUROSEMIDE 20 MG TAB PO SCH ×2 (08:25→17:03)
[2023-07-08] MEDS: ENTRESTO 24-26MG TABLET (SACUBITRIL/VALSARTAN) PO SCH ×2 (08:25→21:18)
[2023-07-08] MEDS: INSULIN LISPRO (NovoLOG) PER UNIT SC SCH ×4 (08:26→21:00)
[2023-07-08] MEDS: OMEPRAZOLE 20MG CAP PO SCH (08:26)
[2023-07-08] MEDS: LIDOCAINE 5% (LIDODERM) PATCH TD SCH (08:26)
[2023-07-08] MEDS: POTASSIUM CHLORIDE 10MEQ SR TABLET PO SCH ×2 (08:32→21:19)
[2023-07-08] MEDS: DAPAGLIFLOZIN PROPANEDIOL 10MG TABLET (FARXIGA) PO SCH (08:34)
[2023-07-08] MEDS ORDERED: POTA-141 PO (16:27)
[2023-07-08] MEDS ORDERED: METO1TAB87 PO (16:27)
[2023-07-08] MEDS ORDERED: ACET1TAB55 PO (16:27)
[2023-07-08] MEDS ORDERED: JANT2.5T PO (16:27)
[2023-07-08] MEDS ORDERED: METH25TAB PO (16:27)
[2023-07-08] MEDS ORDERED: FURO20TA2 PO (16:27)
[2023-07-08] MEDS ORDERED: MUSCCRE9 TOP (16:27)
[2023-07-08] MEDS ORDERED: CEPH500C PO (16:29)
[2023-07-08] MEDS ORDERED: WARFARIN SOD 2.5MG TAB PO SCH (17:00)
[2023-07-08] MEDS: LEVEMIR (INSULIN DETEMIR) 1 UNITS/0.01ML SC SCH (21:00)
[2023-07-09 00:15] VITALS: BP 104/57
[2023-07-09] MEDS: ACETAMINOPHEN TAB 650MG DOSE (2X325MG) PO PRN ×2 (01:18→08:04)
[2023-07-09 05:27] VITALS: BP 105/61; TEMP 97.5; O2SAT 92
[2023-07-09] MEDS: METOPROLOL TART 12.5 MG PER 1/2 TAB PO SCH ×3 (06:08→08:01)
[2023-07-09 06:16] LABS: HEMATOCRIT 36.9 % (36.0-47.0); HEMOGLOBIN 11.7 g/dl (12.0-15.5); MEAN CORPUSCULAR HEMOGLOBIN 30.3 pg (27.0-33.0); MEAN CORPUSCULAR HGB CONC 31.7 g/dl (32.0-36.5); MEAN CORPUSCULAR VOLUME 95.6 fl (80.0-96.0); PLATELET COUNT, AUTOMATED 242 10^3/uL (150-450); RED BLOOD COUNT 3.86 10^6/uL (4.00-5.40); WHITE BLOOD COUNT 5.4 10^3/uL (4.0-10.0)
[2023-07-09 06:26] LABS: INR 2.73; PROTHROMBIN TIME 27.9 SECONDS (12.5-14.5)
[2023-07-09 06:27] LABS: PARTIAL THROMBOPLASTIN TIME 42.6 SECONDS (24.8-34.2)
[2023-07-09 06:49] LABS: ALBUMIN 2.7 G/DL (3.2-5.2); BILIRUBIN,TOTAL 0.5 MG/DL (0.3-1.2); CREATININE FOR GFR 1.04 MG/DL (0.55-1.30); GLOMERULAR FILTRATION RATE 53.9 (>32); POTASSIUM SERUM 3.4 MMOL/L (3.5-5.1); TOTAL PROTEIN 5.5 G/DL (5.7-8.2)
[2023-07-09] MEDS ORDERED: POTA-141 PO (07:26)
[2023-07-09] MEDS: ENTRESTO 24-26MG TABLET (SACUBITRIL/VALSARTAN) PO SCH (07:58)
[2023-07-09] MEDS: DAPAGLIFLOZIN PROPANEDIOL 10MG TABLET (FARXIGA) PO SCH (07:59)
[2023-07-09] MEDS: OMEPRAZOLE 20MG CAP PO SCH (07:59)
[2023-07-09 08:01] VITALS: BP 105/61
[2023-07-09] MEDS: FUROSEMIDE 20 MG TAB PO SCH (08:02)
[2023-07-09] MEDS: CEPHALEXIN 500 MG CAP PO SCH (08:02)
[2023-07-09] MEDS: LIDOCAINE 5% (LIDODERM) PATCH TD SCH (08:02)
[2023-07-09] MEDS: INSULIN LISPRO (NovoLOG) PER UNIT SC SCH (08:03)
[2023-07-09] MEDS: SYMBICORT 160/4.5MCG INHALER 6GM INH SCH (08:37)
[2023-07-09] MEDS ORDERED: POTASSIUM CHLORIDE 10MEQ SR TABLET PO SCH (09:00)
[2023-07-09] MEDS ORDERED: INSUDET SC (17:05)
== END 2023-07-09 11:35 | DRG 643 ==
LOC: M ED 11:19 → M ED INP 20:27 → M PCU 21:09 → M ICU 06-23 10:11 → M PCU 06-28 10:44 → M MS5PR 06-30 15:05
PROVIDERS: ADMIT Internal Medicine; ATTEND Internal Medicine
PROC: B246ZZZ Ultrasonography of Right and Left Heart (ICD-10-PCS; principal; 2023-06-23)
DX: E05.90 Thyrotoxicosis, unspecified without thyrotoxic crisis or storm (principal); I50.23 Acute on chronic systolic (congestive) heart failure; J96.01 Acute respiratory failure with hypoxia; J45.901 Unspecified asthma with (acute) exacerbation; J90 Pleural effusion, not elsewhere classified; E87.20 Acidosis, unspecified; I24.89 Other forms of acute ischemic heart disease; I47.20 Ventricular tachycardia, unspecified; E27.40 Unspecified adrenocortical insufficiency; I82.412 Acute embolism and thrombosis of left femoral vein; I82.432 Acute embolism and thrombosis of left popliteal vein; N39.0 Urinary tract infection, site not specified; K44.9 Diaphragmatic hernia without obstruction or gangrene; M16.11 Unilateral primary osteoarthritis, right hip; K21.9 Gastro-esophageal reflux disease without esophagitis; I11.0 Hypertensive heart disease with heart failure; I89.0 Lymphedema, not elsewhere classified; G47.30 Sleep apnea, unspecified; M41.9 Scoliosis, unspecified; E87.6 Hypokalemia; R60.0 Localized edema; D64.9 Anemia, unspecified; I27.20 Pulmonary hypertension, unspecified; M54.50 Low back pain, unspecified; G89.29 Other chronic pain; Z90.49 Acquired absence of other specified parts of digestive tract; Z90.79 Acquired absence of other genital organ(s); Z98.41 Cataract extraction status, right eye; Z98.42 Cataract extraction status, left eye; Z94.89 Other transplanted organ and tissue status; Z87.891 Personal history of nicotine dependence; R13.12 Dysphagia, oropharyngeal phase; Z99.3 Dependence on wheelchair; Z86.711 Personal history of pulmonary embolism; Z86.718 Personal history of other venous thrombosis and embolism; E11.65 Type 2 diabetes mellitus with hyperglycemia; Z79.01 Long term (current) use of anticoagulants; Z79.52 Long term (current) use of systemic steroids; Z79.899 Other long term (current) drug therapy; Z88.0 Allergy status to penicillin; Z88.5 Allergy status to narcotic agent; Z88.8 Allergy status to other drugs, medicaments and biological substances; Z20.822 Contact with and (suspected) exposure to COVID-19; Z68.36 Body mass index [BMI] 36.0-36.9, adult

== ENCOUNTER → 2023-07-11 | Outpatient (REF) ==
[~2023-07-11] MED LIST changes: +ACET1TAB55 PO; +ALBU8.5H INH; +CEPH500C PO; +DILT120C89 PO; +ELIQ2.5T PO; +ENTR1TAB PO; +FARX1TAB3 PO; +FURO20TA2 PO; +GLIP5TAB17; +GLIP5TAB17 PO; +INSUDET SC; +JANT2.5T PO; +LOVE0.8I SC; +MAGN400T35 PO; +METH25TAB PO; +METO1TAB87 PO; +MUSCCRE9 TOP; +PANT40TA29 PO; +POTA-141 PO; +POTA1TAB23; +POTA1TAB23 PO; +PRED10TA2; +PRED5TA PO; +TORS20TA2 PO; +VENTAER INH; +VITA100093 PO
[2023-07-11 11:24] LABS: HEMATOCRIT 40.5 % (36.0-47.0); HEMOGLOBIN 13.2 g/dl (12.0-15.5); MEAN CORPUSCULAR HEMOGLOBIN 31.9 pg (27.0-33.0); MEAN CORPUSCULAR HGB CONC 32.6 g/dl (32.0-36.5); MEAN CORPUSCULAR VOLUME 97.8 fl (80.0-96.0); PLATELET COUNT, AUTOMATED 313 10^3/uL (150-450); RED BLOOD COUNT 4.14 10^6/uL (4.00-5.40); WHITE BLOOD COUNT 4.8 10^3/uL (4.0-10.0)
[2023-07-11 11:36] LABS: INR 1.84; PROTHROMBIN TIME 20.7 SECONDS (12.5-14.5)
[2023-07-11 11:50] LABS: CALCIUM LEVEL 8.3 MG/DL (8.3-10.6); CREATININE FOR GFR 1.02 MG/DL (0.55-1.30); GLOMERULAR FILTRATION RATE 55.1 (>32); POTASSIUM SERUM 3.6 MMOL/L (3.5-5.1)
== END ==
PROVIDERS: ATTEND Internal Medicine
DX: I82.409 Acute embolism and thrombosis of unspecified deep veins of unspecified lower extremity (principal)

== ENCOUNTER → 2023-07-18 | Outpatient (CLI) | payer MEDICARE, MEDICAID | LOC: M RAD 08:40 | PROVIDERS: ATTEND Internal Medicine | DX: M16.11 Unilateral primary osteoarthritis, right hip (principal) ==

== ENCOUNTER → 2023-07-25 | Outpatient (REF) | payer MEDICARE, MEDICAID ==
[2023-07-25 15:42] LABS: HEMOGLOBIN 12.1 g/dl (12.0-15.5); MEAN CORPUSCULAR HEMOGLOBIN 30.3 pg (27.0-33.0); MEAN CORPUSCULAR HGB CONC 31.8 g/dl (32.0-36.5); PLATELET COUNT, AUTOMATED 321 10^3/uL (150-450); WHITE BLOOD COUNT 7.9 10^3/uL (4.0-10.0)
[2023-07-25 15:55] LABS: INR 3.13
[2023-07-25 16:05] LABS: CALCIUM LEVEL 8.2 MG/DL (8.3-10.6); CREATININE FOR GFR 1.19 MG/DL (0.55-1.30); GLOMERULAR FILTRATION RATE 46.1 (>32); POTASSIUM SERUM 3.9 MMOL/L (3.5-5.1)
== END ==
PROVIDERS: ATTEND Internal Medicine
DX: I50.9 Heart failure, unspecified (principal)

== ENCOUNTER → 2023-07-27 | Outpatient (REF) | payer MEDICARE, MEDICAID | PROVIDERS: ATTEND Internal Medicine | DX: I82.409 Acute embolism and thrombosis of unspecified deep veins of unspecified lower extremity (principal); Z53.8 Procedure and treatment not carried out for other reasons ==

== ENCOUNTER → 2023-07-30 | Outpatient (REF) | payer MEDICARE, MEDICAID ==
[2023-07-30 10:22] LABS: INR 1.92; PROTHROMBIN TIME 21.3 SECONDS (12.5-14.5)
== END ==
PROVIDERS: ATTEND Internal Medicine
DX: I82.409 Acute embolism and thrombosis of unspecified deep veins of unspecified lower extremity (principal)

== ENCOUNTER → 2023-08-01 | Outpatient (REF) | payer MEDICARE, MEDICAID ==
[2023-08-01 11:29] LABS: INR 1.95; PROTHROMBIN TIME 21.6 SECONDS (12.5-14.5)
== END ==
PROVIDERS: ATTEND Internal Medicine
DX: I82.409 Acute embolism and thrombosis of unspecified deep veins of unspecified lower extremity (principal)

== ENCOUNTER → 2023-08-03 | Outpatient (REF) | payer MEDICARE, MEDICAID ==
[2023-08-03 09:49] LABS: HEMATOCRIT 42.4 % (36.0-47.0); HEMOGLOBIN 13.1 g/dl (12.0-15.5); MEAN CORPUSCULAR HEMOGLOBIN 29.8 pg (27.0-33.0); MEAN CORPUSCULAR HGB CONC 30.9 g/dl (32.0-36.5); MEAN CORPUSCULAR VOLUME 96.6 fl (80.0-96.0); PLATELET COUNT, AUTOMATED 286 10^3/uL (150-450); RED BLOOD COUNT 4.39 10^6/uL (4.00-5.40); WHITE BLOOD COUNT 6.8 10^3/uL (4.0-10.0)
[2023-08-03 10:08] LABS: CALCIUM LEVEL 8.7 MG/DL (8.3-10.6); CREATININE FOR GFR 1.03 MG/DL (0.55-1.30); GLOMERULAR FILTRATION RATE 54.5 (>32); POTASSIUM SERUM 3.4 MMOL/L (3.5-5.1)
== END ==
PROVIDERS: ATTEND Internal Medicine
DX: I82.409 Acute embolism and thrombosis of unspecified deep veins of unspecified lower extremity (principal)

== ENCOUNTER → 2023-08-06 | Outpatient (REF) | payer MEDICARE, MEDICAID ==
[2023-08-06 11:09] LABS: INR 2.71; PROTHROMBIN TIME 27.8 SECONDS (12.5-14.5)
== END ==
PROVIDERS: ATTEND Internal Medicine
DX: Z79.01 Long term (current) use of anticoagulants (principal)

== ENCOUNTER → 2023-08-08 | Outpatient (REF) | payer MEDICARE, MEDICAID ==
[2023-08-08 11:47] LABS: INR 2.97; PROTHROMBIN TIME 29.8 SECONDS (12.5-14.5)
== END ==
PROVIDERS: ATTEND Internal Medicine
DX: Z79.01 Long term (current) use of anticoagulants (principal)

== ENCOUNTER → 2023-08-10 | Outpatient (REF) | payer MEDICARE, MEDICAID ==
[2023-08-10 10:18] LABS: INR 3.83; PROTHROMBIN TIME 36.2 SECONDS (12.5-14.5)
== END ==
PROVIDERS: ATTEND Internal Medicine
DX: I50.9 Heart failure, unspecified (principal)

== ENCOUNTER → 2023-08-13 | Outpatient (REF) | payer MEDICARE, MEDICAID ==
[2023-08-13 12:06] LABS: INR 2.23; PROTHROMBIN TIME 23.9 SECONDS (12.5-14.5)
== END ==
PROVIDERS: ATTEND Internal Medicine
DX: I50.9 Heart failure, unspecified (principal)

== ENCOUNTER → 2023-08-15 | Outpatient (REF) | payer MEDICARE, MEDICAID ==
[2023-08-15 12:13] LABS: INR 2.03; PROTHROMBIN TIME 22.2 SECONDS (12.5-14.5)
== END ==
PROVIDERS: ATTEND Internal Medicine
DX: Z79.01 Long term (current) use of anticoagulants (principal)

== ENCOUNTER → 2023-08-17 | Outpatient (REF) | payer MEDICARE, MEDICAID | PROVIDERS: ATTEND Internal Medicine | DX: I82.409 Acute embolism and thrombosis of unspecified deep veins of unspecified lower extremity (principal); Z53.8 Procedure and treatment not carried out for other reasons ==

== ENCOUNTER → 2023-08-20 | Outpatient (REF) | payer MEDICARE, MEDICAID ==
[2023-08-20 11:23] LABS: INR 3.13
== END ==
PROVIDERS: ATTEND Internal Medicine
DX: I50.9 Heart failure, unspecified (principal)

== ENCOUNTER → 2023-08-22 | Outpatient (REF) | payer MEDICARE, MEDICAID ==
[2023-08-22 11:03] LABS: INR 3.37; PROTHROMBIN TIME 32.9 SECONDS (12.5-14.5)
== END ==
PROVIDERS: ATTEND Internal Medicine
DX: I50.9 Heart failure, unspecified (principal)

== ENCOUNTER → 2023-08-24 | Outpatient (REF) | payer MEDICARE, MEDICAID ==
[2023-08-24 09:22] LABS: INR 2.32; PROTHROMBIN TIME 24.6 SECONDS (12.5-14.5)
== END ==
PROVIDERS: ATTEND Internal Medicine
DX: I50.9 Heart failure, unspecified (principal)

== ENCOUNTER → 2023-08-28 | Outpatient (REF) | payer MEDICARE, MEDICAID ==
[2023-08-28 09:56] LABS: INR 1.85; PROTHROMBIN TIME 20.7 SECONDS (12.5-14.5)
== END ==
PROVIDERS: ATTEND Internal Medicine
DX: Z79.01 Long term (current) use of anticoagulants (principal); Z86.718 Personal history of other venous thrombosis and embolism

== ENCOUNTER → 2023-08-29 | Outpatient (REF) | payer MEDICARE, MEDICAID ==
[2023-08-29 10:05] LABS: INR 1.98; PROTHROMBIN TIME 21.8 SECONDS (12.5-14.5)
== END ==
PROVIDERS: ATTEND Internal Medicine
DX: I50.9 Heart failure, unspecified (principal)

== ENCOUNTER → 2023-09-05 | Outpatient (REF) | payer MEDICARE, MEDICAID ==
[2023-09-05 10:53] LABS: HEMOGLOBIN 9.4 g/dl (12.0-15.5); MEAN CORPUSCULAR HGB CONC 30.3 g/dl (32.0-36.5); MEAN CORPUSCULAR VOLUME 95.7 fl (80.0-96.0); PLATELET COUNT, AUTOMATED 311 10^3/uL (150-450); RED BLOOD COUNT 3.24 10^6/uL (4.00-5.40); WHITE BLOOD COUNT 5.6 10^3/uL (4.0-10.0)
[2023-09-05 11:03] LABS: INR 3.03; PROTHROMBIN TIME 30.3 SECONDS (12.5-14.5)
[2023-09-05 11:25] LABS: CREATININE FOR GFR 1.08 MG/DL (0.55-1.30); GLOMERULAR FILTRATION RATE 51.6 (>32); POTASSIUM SERUM 2.3 MMOL/L (3.5-5.1)
== END ==
PROVIDERS: ATTEND Internal Medicine
DX: I82.409 Acute embolism and thrombosis of unspecified deep veins of unspecified lower extremity (principal); Z79.01 Long term (current) use of anticoagulants

== ENCOUNTER → 2023-09-07 | Outpatient (REF) | payer MEDICARE, MEDICAID ==
[2023-09-07 10:26] LABS: CALCIUM LEVEL 8.1 MG/DL (8.3-10.6); CREATININE FOR GFR 0.98 MG/DL (0.55-1.30); GLOMERULAR FILTRATION RATE 57.7 (>32); POTASSIUM SERUM 2.9 MMOL/L (3.5-5.1)
== END ==
PROVIDERS: ATTEND Internal Medicine
DX: E87.6 Hypokalemia (principal)

== ENCOUNTER → 2023-09-10 | Outpatient (REF) | payer MEDICARE, MEDICAID ==
[2023-09-10 10:33] LABS: CALCIUM LEVEL 8.4 MG/DL (8.3-10.6); CREATININE FOR GFR 1.05 MG/DL (0.55-1.30); GLOMERULAR FILTRATION RATE 53.3 (>32); POTASSIUM SERUM 3.8 MMOL/L (3.5-5.1)
== END ==
PROVIDERS: ATTEND Internal Medicine
DX: E87.6 Hypokalemia (principal)

== ENCOUNTER → 2023-09-12 | Outpatient (REF) | payer MEDICARE, MEDICAID ==
[2023-09-12 10:31] LABS: INR 2.26; PROTHROMBIN TIME 24.2 SECONDS (12.5-14.5)
== END ==
PROVIDERS: ATTEND Internal Medicine
DX: I82.409 Acute embolism and thrombosis of unspecified deep veins of unspecified lower extremity (principal); Z79.01 Long term (current) use of anticoagulants

== ENCOUNTER → 2023-09-17 | Outpatient (REF) | payer MEDICARE, MEDICAID ==
[2023-09-17 11:33] LABS: HEMATOCRIT 30.7 % (36.0-47.0); HEMOGLOBIN 9.1 g/dl (12.0-15.5); MEAN CORPUSCULAR HEMOGLOBIN 28.3 pg (27.0-33.0); MEAN CORPUSCULAR HGB CONC 29.6 g/dl (32.0-36.5); MEAN CORPUSCULAR VOLUME 95.3 fl (80.0-96.0); PLATELET COUNT, AUTOMATED 353 10^3/uL (150-450); RED BLOOD COUNT 3.22 10^6/uL (4.00-5.40); WHITE BLOOD COUNT 4.8 10^3/uL (4.0-10.0)
[2023-09-17 12:07] LABS: CALCIUM LEVEL 8.4 MG/DL (8.3-10.6); CREATININE FOR GFR 1.13 MG/DL (0.55-1.30); MAGNESIUM LEVEL 2.2 MG/DL (1.8-2.4); POTASSIUM SERUM 3.8 MMOL/L (3.5-5.1)
[2023-09-17 12:08] LABS: FREE T4 1.25 NG/DL (0.89-1.76); THYROID STIMULATING HORMONE 2.327 uIU/ML (0.55-4.78)
== END ==
PROVIDERS: ATTEND Internal Medicine
DX: I50.9 Heart failure, unspecified (principal)

== ENCOUNTER → 2023-09-19 | Outpatient (REF) | payer MEDICARE, MEDICAID ==
[2023-09-19 11:43] LABS: INR 2.21; PROTHROMBIN TIME 23.8 SECONDS (12.5-14.5)
== END ==
PROVIDERS: ATTEND Internal Medicine
DX: I82.409 Acute embolism and thrombosis of unspecified deep veins of unspecified lower extremity (principal); Z79.01 Long term (current) use of anticoagulants

== ENCOUNTER → 2023-09-24 | Outpatient (REF) | payer MEDICARE, MEDICAID ==
[2023-09-24 11:57] LABS: HEMATOCRIT 30.4 % (36.0-47.0); MEAN CORPUSCULAR HEMOGLOBIN 27.7 pg (27.0-33.0); MEAN CORPUSCULAR HGB CONC 29.6 g/dl (32.0-36.5); MEAN CORPUSCULAR VOLUME 93.5 fl (80.0-96.0); PLATELET COUNT, AUTOMATED 354 10^3/uL (150-450); RED BLOOD COUNT 3.25 10^6/uL (4.00-5.40); WHITE BLOOD COUNT 7.5 10^3/uL (4.0-10.0)
== END ==
PROVIDERS: ATTEND Internal Medicine
DX: I50.9 Heart failure, unspecified (principal)

== ENCOUNTER → 2023-09-26 | Outpatient (REF) | payer MEDICARE, MEDICAID ==
[2023-09-26 10:55] LABS: INR 2.09; PROTHROMBIN TIME 22.8 SECONDS (12.5-14.5)
== END ==
PROVIDERS: ATTEND Internal Medicine
DX: I50.9 Heart failure, unspecified (principal)

== ENCOUNTER → 2023-10-01 | Outpatient (REF) | payer MEDICARE, MEDICAID ==
[~2023-10-01] MED LIST changes: +ASPI81TAEC PO; +ATOR40TA75 PO; +BENG1CRE TOP; +BENPAD TOP; +BISA10EN PR; +CEFD1CAP9 PO; +DRIS50003 PO; +ENEMENE PR; +FLOM0.4C39 PO; +GLUC1KIT IM; +ICY5PAD2 TOP; +INSU100I48 SQ; +MILKSUS3 PO; +WARF4TAB51 PO
== END ==
PROVIDERS: ATTEND Internal Medicine
DX: I50.9 Heart failure, unspecified (principal); Z53.8 Procedure and treatment not carried out for other reasons

== ENCOUNTER 2023-10-02 09:52 | Inpatient (IN) | payer MEDICARE, MEDICAID ==
[~2023-10-02] VITALS: Ht 157.5 cm; Wt 84.2 kg
[~2023-10-02 09:52] MED LIST changes: -ASPI81TAEC PO; -ATOR40TA75 PO; -BENG1CRE TOP; -BENPAD TOP; -BISA10EN PR; -CEFD1CAP9 PO; -DRIS50003 PO; -ENEMENE PR; -FLOM0.4C39 PO; -GLUC1KIT IM; -ICY5PAD2 TOP; -INSU100I48 SQ; -MILKSUS3 PO; -WARF4TAB51 PO
[2023-10-02] MEDS ORDERED: ISOVUE-370 76% 100ML VIAL As Ordered ONE (10:12)
[2023-10-02 10:19] LABS: BASO % 0.3 % (0.0-1.0); EOS # 0.1 10^3/uL (0.0-0.5); EOS % 1.4 % (0.0-3.0); HEMATOCRIT 30.8 % (36.0-47.0); HEMOGLOBIN 9.4 g/dl (12.0-15.5); LYMPH # 1.5 10^3/uL (1.5-5.0); LYMPH % 23.3 % (24.0-44.0); MEAN CORPUSCULAR HEMOGLOBIN 27.6 pg (27.0-33.0); MEAN CORPUSCULAR HGB CONC 30.5 g/dl (32.0-36.5); MEAN CORPUSCULAR VOLUME 90.6 fl (80.0-96.0); MONO # 0.7 10^3/uL (0.0-0.8); MONO % 11.4 % (2.0-8.0); NEUTROPHILS # 4.1 10^3/uL (1.5-8.5); NEUTROPHILS % 63.3 % (36.0-66.0); PLATELET COUNT, AUTOMATED 350 10^3/uL (150-450); WHITE BLOOD COUNT 6.5 10^3/uL (4.0-10.0)
[2023-10-02 10:30] LABS: INR 1.81; PROTHROMBIN TIME 20.4 SECONDS (12.5-14.5)
[2023-10-02 10:31] LABS: PARTIAL THROMBOPLASTIN TIME 25.4 SECONDS (24.8-34.2)
[2023-10-02] MEDS ORDERED: MED REC IN PROGRESS XX SCH (10:45)
[2023-10-02 11:26] LABS: CK-MB VALUE MASS < 1.0 NG/ML (<3.6)
[2023-10-02 11:27] LABS: CPK CREATINE PHOSPHOKINASE 39 U/L (34-145); MB/CK RELATIVE INDEX 2.56 (< OR =4)
[2023-10-02 11:30] LABS: APPEARANCE, URINE CLOUDY (CLEAR); BACTERIA, URINE AUTO 2+ (NEGATIVE); BILIRUBIN, URINE AUTO NEGATIVE (NEGATIVE); BLOOD, URINE BLOOD NEGATIVE (NEGATIVE); COLOR, URINE YELLOW (YELLOW); GLUCOSE, URINE (UA) AUTO 3+ mg/dL (NEGATIVE); KETONE, URINE AUTO NEGATIVE (NEGATIVE); LEUKOCYTE ESTERASE, URINE AUTO 3+ (NEGATIVE); MUCUS, URINE SMALL (NEGATIVE); NITRITE, URINE AUTO POSITIVE (NEGATIVE); PROTEIN, URINE AUTO NEGATIVE (NEGATIVE); RBC, URINE AUTO 2 /HPF (0-3); SPECIFIC GRAVITY URINE AUTO 1.014 (1.002-1.035); SQUAMOUS EPITHELIAL CELL UR AU 0 /HPF (0-6); UROBILINOGEN, URINE AUTO 0.2 mg/dL (0.0-2.0); WBC, URINE AUTO 154 /HPF (0-3)
[2023-10-02 11:36] LABS: RSV AMPLIFICATION NEGATIVE (NEGATIVE)
[2023-10-02] MEDS ORDERED: NS 1,000 ML IV ONE (12:05)
[2023-10-02] MEDS ORDERED: DEXTROSE 50% 50ML SYRINGE IV PRN (12:15)
[2023-10-02] MEDS ORDERED: GLUCAGON INJ 1MG VIAL SC PRN (12:15)
[2023-10-02] MEDS ORDERED: GLUCOSE 4GM CHEW TABLET PO PRN (12:15)
[2023-10-02] MEDS: INSULIN LISPRO (NovoLOG) PER UNIT SC SCH ×3 (12:28→20:49)
[2023-10-02] MEDS: cefTRIAXone SOD 1 GM in D5W MINI-BAG PLUS 50 ML IV SCH (12:35)
[2023-10-02] MEDS ORDERED: ASPIRIN 325 MG TAB PO ONE (13:00)
[2023-10-02] MEDS ORDERED: ATORVASTATIN 20 MG TAB PO ONE (13:00)
[2023-10-02 13:30] LABS: C REACTIVE PROTEIN QUANTITATIV < 0.40 MG/DL (<1.0)
[2023-10-02 13:33] LABS: ALBUMIN 3.3 G/DL (3.2-5.2); ALKALINE PHOSPHATASE 74 U/L (46-116); ALT/SGPT < 9 U/L (7.0-40); AST/SGOT < 8 U/L (<34); BILIRUBIN,TOTAL 0.4 MG/DL (0.3-1.2); BLOOD UREA NITROGEN 29 MG/DL (9-23); CALCIUM LEVEL 8.3 MG/DL (8.3-10.6); CARBON DIOXIDE LEVEL 27 MMOL/L (20-31); CHLORIDE LEVEL 103 MMOL/L (98-107); CHOLESTEROL LEVEL 186 MG/DL (<200); CHOLESTEROL RISK RATIO 4.34 (<5); CREATININE FOR GFR 1.29 MG/DL (0.55-1.30); GLUCOSE, FASTING 118 MG/DL (74-106); HDL CHOLESTEROL 42.8 MG/DL (>40); NON-HDL-C 143.2 MG/DL; POTASSIUM SERUM 3.7 MMOL/L (3.5-5.1); SODIUM LEVEL 138 MMOL/L (136-145); TOTAL PROTEIN 6.3 G/DL (5.7-8.2); TRIGLYCERIDES LEVEL 236 MG/DL (<150)
[2023-10-02] MEDS ORDERED: METO1TAB87 PO (13:33)
[2023-10-02] MEDS ORDERED: FLOM0.4C39 PO (13:33)
[2023-10-02] MEDS ORDERED: DRIS50003 PO (13:33)
[2023-10-02] MEDS ORDERED: SPIR-10 PO (13:33)
[2023-10-02 13:34] LABS: FREE T4 1.24 NG/DL (0.89-1.76); THYROID STIMULATING HORMONE 2.416 uIU/ML (0.55-4.78)
[2023-10-02 13:44] LABS: PROCALCITONIN 0.08 ng/ml
[2023-10-02 13:51] LABS: HEMOGLOBIN A1c 6.2 % (4.0-6.0)
[2023-10-02] MEDS ORDERED: ICY5PAD2 TOP (13:55)
[2023-10-02] MEDS ORDERED: ENEMENE PR (13:55)
[2023-10-02] MEDS ORDERED: BISA10EN PR (13:55)
[2023-10-02] MEDS ORDERED: BENG1CRE TOP ×2 (13:55)
[2023-10-02] MEDS ORDERED: ACET1TAB55 PO (13:55)
[2023-10-02] MEDS ORDERED: ASPIRIN 81MG ENTERIC TABLET PO ONE (14:00)
[2023-10-02] MEDS ORDERED: BENPAD TOP (14:11)
[2023-10-02] MEDS ORDERED: POTA-141 PO (14:11)
[2023-10-02] MEDS ORDERED: FURO20TA2 PO (14:11)
[2023-10-02] MEDS ORDERED: FARX1TAB3 PO (14:11)
[2023-10-02] MEDS ORDERED: ENTR1TAB PO (14:11)
[2023-10-02] MEDS ORDERED: GLUC1KIT IM (14:26)
[2023-10-02] MEDS ORDERED: WARF4TAB51 PO (14:26)
[2023-10-02] MEDS ORDERED: MILKSUS3 PO (14:26)
[2023-10-02] MEDS ORDERED: INSU100I48 SQ (14:26)
[2023-10-02] MEDS ORDERED: METH25TAB PO (14:47)
[2023-10-02] MEDS ORDERED: HOME MED LIST COMPLETE! XX SCH (14:50)
[2023-10-02] MEDS ORDERED: BISACODYL ENEMA 10MG/30ML PR PRN (15:05)
[2023-10-02] MEDS: ACETAMINOPHEN 500 MG TAB PO PRN (15:34)
[2023-10-02] MEDS: predniSONE 5 MG TAB PO SCH (16:22)
[2023-10-02 16:54] VITALS: BP 110/68; TEMP 97.3; O2SAT 97
[2023-10-02] MEDS ORDERED: WARFARIN SOD 2MG TAB PO SCH (17:00)
[2023-10-02] MEDS ORDERED: WARFARIN SOD 1MG TAB PO ONE (17:00)
[2023-10-02 17:11] LABS: LIPASE 46 U/L (12-53)
[2023-10-02] MEDS ORDERED: NS 1,000 ML IV SCH ×2 (19:25→19:30)
[2023-10-02] MEDS: SYMBICORT 160/4.5MCG INHALER 6GM INH SCH (19:49)
[2023-10-02 20:06] VITALS: BP 108/58; TEMP 96.9; O2SAT 95
[2023-10-02] MEDS: LEVEMIR (INSULIN DETEMIR) 1 UNITS/0.01ML SC SCH (20:49)
[2023-10-02] MEDS: PANTOPRAZOLE 40MG TAB (PROTONIX) PO SCH (20:49)
[2023-10-03] VITALS: BP 143/68; TEMP 97.8; O2SAT 96
[2023-10-03 04:01] VITALS: BP 118/64; TEMP 97.6; O2SAT 96
[2023-10-03 05:50] LABS: BASO % 0.6 % (0.0-1.0); EOS # 0.1 10^3/uL (0.0-0.5); EOS % 1.4 % (0.0-3.0); HEMATOCRIT 28.2 % (36.0-47.0); HEMOGLOBIN 8.4 g/dl (12.0-15.5); LYMPH # 1.2 10^3/uL (1.5-5.0); LYMPH % 24.7 % (24.0-44.0); MEAN CORPUSCULAR HEMOGLOBIN 26.8 pg (27.0-33.0); MEAN CORPUSCULAR HGB CONC 29.8 g/dl (32.0-36.5); MEAN CORPUSCULAR VOLUME 89.8 fl (80.0-96.0); MONO # 0.6 10^3/uL (0.0-0.8); MONO % 11.4 % (2.0-8.0); NEUTROPHILS % 61.7 % (36.0-66.0); PLATELET COUNT, AUTOMATED 311 10^3/uL (150-450); RED BLOOD COUNT 3.14 10^6/uL (4.00-5.40); WHITE BLOOD COUNT 4.9 10^3/uL (4.0-10.0)
[2023-10-03 06:01] LABS: INR 1.95; PROTHROMBIN TIME 21.6 SECONDS (12.5-14.5)
[2023-10-03] MEDS: ACETAMINOPHEN 500 MG TAB PO PRN (06:05)
[2023-10-03 06:06] LABS: MAGNESIUM LEVEL 2.4 MG/DL (1.8-2.4)
[2023-10-03] MEDS: SYMBICORT 160/4.5MCG INHALER 6GM INH SCH ×2 (07:37→19:06)
[2023-10-03 07:42] VITALS: BP 126/67; TEMP 97.3; O2SAT 94
[2023-10-03 07:51] LABS: CREATININE FOR GFR 1.28 MG/DL (0.55-1.30); GLOMERULAR FILTRATION RATE 42.4 (>32); POTASSIUM SERUM 3.9 MMOL/L (3.5-5.1)
[2023-10-03] MEDS: INSULIN LISPRO (NovoLOG) PER UNIT SC SCH ×4 (08:30→20:55)
[2023-10-03] MEDS: predniSONE 5 MG TAB PO SCH (09:48)
[2023-10-03] MEDS: TAMSULOSIN 0.4 MG CAP PO SCH (09:48)
[2023-10-03] MEDS: ASPIRIN 81MG ENTERIC TABLET PO SCH (09:48)
[2023-10-03] MEDS: PANTOPRAZOLE 40MG TAB (PROTONIX) PO SCH ×2 (09:48→20:55)
[2023-10-03] MEDS: ATORVASTATIN 20 MG TAB PO SCH (09:48)
[2023-10-03] MEDS: DAPAGLIFLOZIN PROPANEDIOL 10MG TABLET (FARXIGA) PO SCH (09:48)
[2023-10-03 11:47] VITALS: BP 115/62; TEMP 97.3; O2SAT 96
[2023-10-03] MEDS: cefTRIAXone SOD 1 GM in D5W MINI-BAG PLUS 50 ML IV SCH (12:18)
[2023-10-03 15:40] VITALS: BP 108/61; TEMP 97; O2SAT 97
[2023-10-03 18:38] VITALS: BP 120/59; TEMP 97.8; O2SAT 95
[2023-10-03] MEDS: LEVEMIR (INSULIN DETEMIR) 1 UNITS/0.01ML SC SCH (20:54)
[2023-10-03] MEDS: METOPROLOL TART 12.5 MG PER 1/2 TAB PO SCH (20:55)
[2023-10-04] VITALS: BP 113/62; TEMP 97.8; O2SAT 95
[2023-10-04] MEDS: ACETAMINOPHEN 500 MG TAB PO PRN (01:43)
[2023-10-04] MEDS: LORATADINE 10 MG TAB PO SCH ×2 (02:04→08:50)
[2023-10-04 04:00] VITALS: BP 113/66; TEMP 97; O2SAT 95
[2023-10-04 06:41] LABS: BASO % 0.4 % (0.0-1.0); EOS # 0.1 10^3/uL (0.0-0.5); EOS % 2.7 % (0.0-3.0); HEMATOCRIT 28.3 % (36.0-47.0); HEMOGLOBIN 8.5 g/dl (12.0-15.5); LYMPH # 1.3 10^3/uL (1.5-5.0); LYMPH % 26.9 % (24.0-44.0); MEAN CORPUSCULAR HEMOGLOBIN 26.6 pg (27.0-33.0); MEAN CORPUSCULAR VOLUME 88.4 fl (80.0-96.0); MONO # 0.5 10^3/uL (0.0-0.8); MONO % 10.3 % (2.0-8.0); NEUTROPHILS # 2.8 10^3/uL (1.5-8.5); NEUTROPHILS % 59.5 % (36.0-66.0); PLATELET COUNT, AUTOMATED 296 10^3/uL (150-450); WHITE BLOOD COUNT 4.8 10^3/uL (4.0-10.0)
[2023-10-04 06:54] LABS: INR 2.15; PROTHROMBIN TIME 23.2 SECONDS (12.5-14.5)
[2023-10-04] MEDS: SYMBICORT 160/4.5MCG INHALER 6GM INH SCH (07:16)
[2023-10-04 07:33] VITALS: BP 137/78; TEMP 97.3; O2SAT 93
[2023-10-04 07:47] LABS: CALCIUM LEVEL 8.2 MG/DL (8.3-10.6); CREATININE FOR GFR 1.19 MG/DL (0.55-1.30); GLOMERULAR FILTRATION RATE 46.1 (>32); MAGNESIUM LEVEL 2.1 MG/DL (1.8-2.4); POTASSIUM SERUM 3.7 MMOL/L (3.5-5.1)
[2023-10-04] MEDS: INSULIN LISPRO (NovoLOG) PER UNIT SC SCH ×2 (08:20→12:10)
[2023-10-04] MEDS ORDERED: PANT40TA29 PO (08:46)
[2023-10-04] MEDS ORDERED: METO1TAB87 PO (08:46)
[2023-10-04] MEDS ORDERED: ATOR40TA75 PO (08:46)
[2023-10-04] MEDS ORDERED: ASPI81TAEC PO (08:46)
[2023-10-04] MEDS ORDERED: CEFD1CAP9 PO (08:46)
[2023-10-04] MEDS: ASPIRIN 81MG ENTERIC TABLET PO SCH (08:49)
[2023-10-04] MEDS: TAMSULOSIN 0.4 MG CAP PO SCH (08:49)
[2023-10-04] MEDS: DAPAGLIFLOZIN PROPANEDIOL 10MG TABLET (FARXIGA) PO SCH (08:49)
[2023-10-04 08:50] VITALS: BP 137/78
[2023-10-04] MEDS: METOPROLOL TART 12.5 MG PER 1/2 TAB PO SCH (08:50)
[2023-10-04] MEDS: ATORVASTATIN 20 MG TAB PO SCH (08:50)
[2023-10-04] MEDS: predniSONE 5 MG TAB PO SCH (08:50)
[2023-10-04] MEDS: PANTOPRAZOLE 40MG TAB (PROTONIX) PO SCH (08:50)
[2023-10-04] MEDS ORDERED: CEFDINIR 300 MG CAP (OMNICEF) PO SCH (09:00)
[2023-10-04 11:39] VITALS: BP 112/62; TEMP 97.8; O2SAT 97
== END 2023-10-04 12:55 | DRG 65 ==
LOC: M ED 09:52 → EDBD 09:52 → OBSVTOIN 09:53 → M ED INP 09:53 → ENRESERV 15:37 → M PCU 16:44
PROVIDERS: ADMIT Internal Medicine; ATTEND Internal Medicine
PROC: B246ZZZ Ultrasonography of Right and Left Heart (ICD-10-PCS; principal; 2023-10-02)
DX: I63.9 Cerebral infarction, unspecified (principal); I50.22 Chronic systolic (congestive) heart failure; J44.9 Chronic obstructive pulmonary disease, unspecified; E11.9 Type 2 diabetes mellitus without complications; I11.0 Hypertensive heart disease with heart failure; M19.90 Unspecified osteoarthritis, unspecified site; M41.9 Scoliosis, unspecified; R74.01 Elevation of levels of liver transaminase levels; K59.00 Constipation, unspecified; E07.9 Disorder of thyroid, unspecified; Z79.4 Long term (current) use of insulin; Z79.52 Long term (current) use of systemic steroids; Z79.899 Other long term (current) drug therapy; Z79.01 Long term (current) use of anticoagulants; Z86.718 Personal history of other venous thrombosis and embolism; Z86.711 Personal history of pulmonary embolism; Z88.2 Allergy status to sulfonamides; Z88.5 Allergy status to narcotic agent; Z88.8 Allergy status to other drugs, medicaments and biological substances; Z20.822 Contact with and (suspected) exposure to COVID-19; Z96.651 Presence of right artificial knee joint; Z98.41 Cataract extraction status, right eye; Z98.42 Cataract extraction status, left eye; Z90.49 Acquired absence of other specified parts of digestive tract; Z90.79 Acquired absence of other genital organ(s); Z95.828 Presence of other vascular implants and grafts; N30.90 Cystitis, unspecified without hematuria

== ENCOUNTER → 2023-10-03 | Outpatient (REF) | payer MEDICARE, MEDICAID ==
[~2023-10-03] MED LIST changes: +ASPI81TAEC PO; +ATOR40TA75 PO; +BENG1CRE TOP; +BENPAD TOP; +BISA10EN PR; +CEFD1CAP9 PO; +DRIS50003 PO; +ENEMENE PR; +FLOM0.4C39 PO; +GLUC1KIT IM; +ICY5PAD2 TOP; +INSU100I48 SQ; +MILKSUS3 PO; +WARF4TAB51 PO
== END ==
PROVIDERS: ATTEND Internal Medicine
DX: I82.409 Acute embolism and thrombosis of unspecified deep veins of unspecified lower extremity (principal); Z79.01 Long term (current) use of anticoagulants; Z53.8 Procedure and treatment not carried out for other reasons

== ENCOUNTER → 2023-10-08 | Outpatient (REF) | payer MEDICARE, MEDICAID ==
[2023-10-08 11:04] LABS: HEMATOCRIT 33.3 % (36.0-47.0); HEMOGLOBIN 9.7 g/dl (12.0-15.5); MEAN CORPUSCULAR HEMOGLOBIN 26.6 pg (27.0-33.0); MEAN CORPUSCULAR HGB CONC 29.1 g/dl (32.0-36.5); MEAN CORPUSCULAR VOLUME 91.2 fl (80.0-96.0); PLATELET COUNT, AUTOMATED 390 10^3/uL (150-450); RED BLOOD COUNT 3.65 10^6/uL (4.00-5.40); WHITE BLOOD COUNT 5.6 10^3/uL (4.0-10.0)
[2023-10-08 11:27] LABS: CALCIUM LEVEL 8.6 MG/DL (8.3-10.6); CREATININE FOR GFR 1.16 MG/DL (0.55-1.30); GLOMERULAR FILTRATION RATE 47.5 (>32); POTASSIUM SERUM 3.5 MMOL/L (3.5-5.1)
== END ==
PROVIDERS: ATTEND Internal Medicine
DX: I50.9 Heart failure, unspecified (principal)

== ENCOUNTER → 2023-10-10 | Outpatient (REF) | payer MEDICARE, MEDICAID ==
[2023-10-10 12:20] LABS: INR 2.24
== END ==
PROVIDERS: ATTEND Internal Medicine
DX: I82.409 Acute embolism and thrombosis of unspecified deep veins of unspecified lower extremity (principal); Z79.01 Long term (current) use of anticoagulants

== ENCOUNTER → 2023-10-17 | Outpatient (REF) | payer MEDICARE, MEDICAID ==
[2023-10-17 10:50] LABS: INR 1.86; PROTHROMBIN TIME 20.8 SECONDS (12.5-14.5)
== END ==
PROVIDERS: ATTEND Internal Medicine
DX: Z79.01 Long term (current) use of anticoagulants (principal)

== ENCOUNTER → 2023-10-24 | Outpatient (REF) | payer MEDICARE, MEDICAID ==
[2023-10-24 10:53] LABS: INR 2.09; PROTHROMBIN TIME 22.7 SECONDS (12.5-14.5)
== END ==
PROVIDERS: ATTEND Internal Medicine
DX: Z79.01 Long term (current) use of anticoagulants (principal)

== ENCOUNTER → 2023-11-07 | Outpatient (REF) | payer MEDICARE, MEDICAID ==
[2023-11-07 11:28] LABS: INR 2.49
== END ==
PROVIDERS: ATTEND Internal Medicine
DX: Z79.01 Long term (current) use of anticoagulants (principal)

== ENCOUNTER → 2023-11-12 | Outpatient (REF) | payer MEDICARE, MEDICAID ==
[2023-11-12 11:47] LABS: HEMATOCRIT 30.1 % (36.0-47.0); HEMOGLOBIN 8.6 g/dl (12.0-15.5); MEAN CORPUSCULAR HEMOGLOBIN 24.3 pg (27.0-33.0); MEAN CORPUSCULAR HGB CONC 28.6 g/dl (32.0-36.5); PLATELET COUNT, AUTOMATED 393 10^3/uL (150-450); RED BLOOD COUNT 3.54 10^6/uL (4.00-5.40); WHITE BLOOD COUNT 8.1 10^3/uL (4.0-10.0)
[2023-11-12 12:10] LABS: CALCIUM LEVEL 8.3 MG/DL (8.3-10.6); CREATININE FOR GFR 1.18 MG/DL (0.55-1.30); GLOMERULAR FILTRATION RATE 46.6 (>32); POTASSIUM SERUM 4.1 MMOL/L (3.5-5.1); THYROID STIMULATING HORMONE 3.598 uIU/ML (0.55-4.78); THYROXINE (T4) 10.2 UG/DL (4.5-10.9); TOTAL 25(OH) VITAMIN D 60.2 NG/ML (20.0-100.0)
== END ==
PROVIDERS: ATTEND Internal Medicine
DX: E11.9 Type 2 diabetes mellitus without complications (principal); Z79.899 Other long term (current) drug therapy

== ENCOUNTER → 2023-11-14 | Outpatient (REF) | payer MEDICARE, MEDICAID ==
[2023-11-14 16:21] LABS: HEMOGLOBIN 8.6 g/dl (12.0-15.5); MEAN CORPUSCULAR HEMOGLOBIN 24.3 pg (27.0-33.0); MEAN CORPUSCULAR HGB CONC 28.7 g/dl (32.0-36.5); MEAN CORPUSCULAR VOLUME 84.7 fl (80.0-96.0); PLATELET COUNT, AUTOMATED 411 10^3/uL (150-450); RED BLOOD COUNT 3.54 10^6/uL (4.00-5.40); WHITE BLOOD COUNT 7.5 10^3/uL (4.0-10.0)
[2023-11-14 16:42] LABS: CALCIUM LEVEL 7.9 MG/DL (8.3-10.6); CREATININE FOR GFR 1.19 MG/DL (0.55-1.30); PERCENT SATURATION 3.3 % (13.2-45.0); POTASSIUM SERUM 3.9 MMOL/L (3.5-5.1)
[2023-11-14 16:44] LABS: FERRITIN 10.6 NG/ML (7.3-270.7)
[2023-11-14 16:45] LABS: FOLATE 6.95 NG/ML (>5.4)
== END ==
PROVIDERS: ATTEND Internal Medicine
DX: D64.9 Anemia, unspecified (principal)

== ENCOUNTER → 2023-11-14 | Outpatient (REF) | payer MEDICARE, MEDICAID | PROVIDERS: ATTEND Internal Medicine | DX: I82.409 Acute embolism and thrombosis of unspecified deep veins of unspecified lower extremity (principal); Z79.01 Long term (current) use of anticoagulants; Z53.8 Procedure and treatment not carried out for other reasons ==

== ENCOUNTER → 2023-11-15 | Outpatient (REF) | payer MEDICARE, MEDICAID ==
[2023-11-15 16:04] LABS: INR 2.14; PROTHROMBIN TIME 23.1 SECONDS (12.5-14.5)
== END ==
PROVIDERS: ATTEND Internal Medicine
DX: Z79.01 Long term (current) use of anticoagulants (principal)

== ENCOUNTER → 2023-11-16 | Outpatient (REF) | payer MEDICARE, MEDICAID | PROVIDERS: ATTEND Internal Medicine | DX: D64.9 Anemia, unspecified (principal) ==

== ENCOUNTER → 2023-11-21 | Outpatient (REF) | payer MEDICARE, MEDICAID ==
[2023-11-21 11:56] LABS: HEMATOCRIT 27.9 % (36.0-47.0); HEMOGLOBIN 8.1 g/dl (12.0-15.5); MEAN CORPUSCULAR HEMOGLOBIN 24.2 pg (27.0-33.0); MEAN CORPUSCULAR VOLUME 83.3 fl (80.0-96.0); PLATELET COUNT, AUTOMATED 379 10^3/uL (150-450); RED BLOOD COUNT 3.35 10^6/uL (4.00-5.40); WHITE BLOOD COUNT 7.1 10^3/uL (4.0-10.0)
[2023-11-21 12:12] LABS: INR 1.89
[2023-11-21 12:53] LABS: CALCIUM LEVEL 8.4 MG/DL (8.3-10.6); CREATININE FOR GFR 1.18 MG/DL (0.55-1.30); GLOMERULAR FILTRATION RATE 46.5 (>32); PERCENT SATURATION 6.1 % (13.2-45.0); POTASSIUM SERUM 4.4 MMOL/L (3.5-5.1)
== END ==
PROVIDERS: ATTEND Internal Medicine
DX: D64.9 Anemia, unspecified (principal); Z79.01 Long term (current) use of anticoagulants

== ENCOUNTER → 2023-11-26 | Outpatient (REF) | payer MEDICARE, MEDICAID ==
[2023-11-26 16:15] LABS: HEMATOCRIT 31.2 % (36.0-47.0); MEAN CORPUSCULAR HEMOGLOBIN 24.1 pg (27.0-33.0); MEAN CORPUSCULAR HGB CONC 28.8 g/dl (32.0-36.5); MEAN CORPUSCULAR VOLUME 83.6 fl (80.0-96.0); PLATELET COUNT, AUTOMATED 426 10^3/uL (150-450); RED BLOOD COUNT 3.73 10^6/uL (4.00-5.40)
[2023-11-26 16:33] LABS: CALCIUM LEVEL 8.3 MG/DL (8.3-10.6); CREATININE FOR GFR 1.31 MG/DL (0.55-1.30); GLOMERULAR FILTRATION RATE 41.2 (>32)
== END ==
PROVIDERS: ATTEND Internal Medicine
DX: R42 Dizziness and giddiness (principal)

== ENCOUNTER → 2023-11-28 | Outpatient (REF) | payer MEDICARE, MEDICAID ==
[2023-11-28 11:08] LABS: HEMATOCRIT 28.7 % (36.0-47.0); HEMOGLOBIN 8.2 g/dl (12.0-15.5); MEAN CORPUSCULAR HGB CONC 28.6 g/dl (32.0-36.5); MEAN CORPUSCULAR VOLUME 83.9 fl (80.0-96.0); PLATELET COUNT, AUTOMATED 364 10^3/uL (150-450); RED BLOOD COUNT 3.42 10^6/uL (4.00-5.40)
[2023-11-28 11:16] LABS: INR 1.88; PROTHROMBIN TIME 20.9 SECONDS (12.5-14.5)
== END ==
PROVIDERS: ATTEND Internal Medicine
DX: D50.9 Iron deficiency anemia, unspecified (principal); I82.409 Acute embolism and thrombosis of unspecified deep veins of unspecified lower extremity

== ENCOUNTER → 2023-12-05 | Outpatient (REF) | payer MEDICARE, MEDICAID ==
[2023-12-05 14:21] LABS: HEMATOCRIT 32.8 % (36.0-47.0); HEMOGLOBIN 9.5 g/dl (12.0-15.5); MEAN CORPUSCULAR HEMOGLOBIN 24.8 pg (27.0-33.0); MEAN CORPUSCULAR VOLUME 85.6 fl (80.0-96.0); PLATELET COUNT, AUTOMATED 387 10^3/uL (150-450); RED BLOOD COUNT 3.83 10^6/uL (4.00-5.40); WHITE BLOOD COUNT 6.8 10^3/uL (4.0-10.0)
[2023-12-05 14:53] LABS: PERCENT SATURATION 9.4 % (13.2-45.0)
[2023-12-05 15:18] LABS: INR 2.25; PROTHROMBIN TIME 24.1 SECONDS (12.5-14.5)
== END ==
PROVIDERS: ATTEND Internal Medicine
DX: I82.409 Acute embolism and thrombosis of unspecified deep veins of unspecified lower extremity (principal); Z79.899 Other long term (current) drug therapy; D50.9 Iron deficiency anemia, unspecified

== ENCOUNTER → 2023-12-12 | Outpatient (REF) | payer MEDICARE, MEDICAID ==
[2023-12-12 10:50] LABS: INR 1.92; PROTHROMBIN TIME 21.3 SECONDS (12.5-14.5)
== END ==
PROVIDERS: ATTEND Internal Medicine
DX: I82.409 Acute embolism and thrombosis of unspecified deep veins of unspecified lower extremity (principal); Z79.899 Other long term (current) drug therapy

== ENCOUNTER → 2023-12-19 | Outpatient (REF) | payer MEDICARE, MEDICAID ==
[2023-12-19 12:28] LABS: INR 2.19; PROTHROMBIN TIME 23.6 SECONDS (12.5-14.5)
== END ==
PROVIDERS: ATTEND Internal Medicine
DX: I82.409 Acute embolism and thrombosis of unspecified deep veins of unspecified lower extremity (principal); Z79.899 Other long term (current) drug therapy

== ENCOUNTER → 2023-12-26 | Outpatient (REF) | payer MEDICARE, MEDICAID ==
[2023-12-26 08:24] LABS: HEMOGLOBIN 10.7 g/dl (12.0-15.5); MEAN CORPUSCULAR HGB CONC 28.9 g/dl (32.0-36.5); PLATELET COUNT, AUTOMATED 352 10^3/uL (150-450); RED BLOOD COUNT 4.11 10^6/uL (4.00-5.40); WHITE BLOOD COUNT 8.1 10^3/uL (4.0-10.0)
[2023-12-26 08:36] LABS: INR 1.9; PROTHROMBIN TIME 21.2 SECONDS (12.5-14.5)
== END ==
PROVIDERS: ATTEND Internal Medicine
DX: I82.409 Acute embolism and thrombosis of unspecified deep veins of unspecified lower extremity (principal); Z79.899 Other long term (current) drug therapy

== ENCOUNTER → 2024-01-02 | Outpatient (REF) | payer MEDICARE, MEDICAID ==
[2024-01-02 10:43] LABS: HEMATOCRIT 37.5 % (36.0-47.0); MEAN CORPUSCULAR HEMOGLOBIN 26.6 pg (27.0-33.0); MEAN CORPUSCULAR HGB CONC 29.3 g/dl (32.0-36.5); MEAN CORPUSCULAR VOLUME 90.8 fl (80.0-96.0); PLATELET COUNT, AUTOMATED 342 10^3/uL (150-450); RED BLOOD COUNT 4.13 10^6/uL (4.00-5.40); WHITE BLOOD COUNT 6.6 10^3/uL (4.0-10.0)
[2024-01-02 11:07] LABS: INR 1.74; PROTHROMBIN TIME 19.8 SECONDS (12.5-14.5)
== END ==
PROVIDERS: ATTEND Internal Medicine
DX: N18.9 Chronic kidney disease, unspecified (principal); D63.1 Anemia in chronic kidney disease

== ENCOUNTER → 2024-01-08 | Outpatient (REF) | payer MEDICARE, MEDICAID | PROVIDERS: ATTEND Internal Medicine | DX: J98.11 Atelectasis (principal) ==

== ENCOUNTER → 2024-01-08 | Outpatient (REF) | payer MEDICARE, MEDICAID | PROVIDERS: ATTEND Internal Medicine | DX: R05.9 Cough, unspecified (principal) ==

== ENCOUNTER → 2024-01-09 | Outpatient (REF) | payer MEDICARE, MEDICAID ==
[2024-01-09 10:42] LABS: HEMOGLOBIN 10.1 g/dl (12.0-15.5); MEAN CORPUSCULAR HEMOGLOBIN 26.6 pg (27.0-33.0); MEAN CORPUSCULAR HGB CONC 29.7 g/dl (32.0-36.5); MEAN CORPUSCULAR VOLUME 89.7 fl (80.0-96.0); PLATELET COUNT, AUTOMATED 292 10^3/uL (150-450); RED BLOOD COUNT 3.79 10^6/uL (4.00-5.40); WHITE BLOOD COUNT 5.9 10^3/uL (4.0-10.0)
[2024-01-09 10:51] LABS: INR 2.65; PROTHROMBIN TIME 27.3 SECONDS (12.5-14.5)
== END ==
PROVIDERS: ATTEND Internal Medicine
DX: Z79.01 Long term (current) use of anticoagulants (principal)

== ENCOUNTER → 2024-01-16 | Outpatient (REF) | payer MEDICARE, MEDICAID ==
[2024-01-16 11:21] LABS: HEMATOCRIT 34.7 % (36.0-47.0); HEMOGLOBIN 10.4 g/dl (12.0-15.5); MEAN CORPUSCULAR HEMOGLOBIN 27.2 pg (27.0-33.0); MEAN CORPUSCULAR VOLUME 90.8 fl (80.0-96.0); PLATELET COUNT, AUTOMATED 301 10^3/uL (150-450); RED BLOOD COUNT 3.82 10^6/uL (4.00-5.40); WHITE BLOOD COUNT 7.4 10^3/uL (4.0-10.0)
[2024-01-16 11:34] LABS: INR 3.87; PROTHROMBIN TIME 36.5 SECONDS (12.5-14.5)
== END ==
PROVIDERS: ATTEND Internal Medicine
DX: Z79.01 Long term (current) use of anticoagulants (principal)

== ENCOUNTER → 2024-01-18 | Outpatient (REF) | payer MEDICARE, MEDICAID ==
[2024-01-18 10:08] LABS: INR 3.46; PROTHROMBIN TIME 33.5 SECONDS (12.5-14.5)
== END ==
PROVIDERS: ATTEND Internal Medicine
DX: R79.1 Abnormal coagulation profile (principal)

== ENCOUNTER → 2024-01-21 | Outpatient (REF) | payer MEDICARE, MEDICAID ==
[2024-01-21 14:45] LABS: INR 2.37; PROTHROMBIN TIME 25.1 SECONDS (12.5-14.5)
== END ==
PROVIDERS: ATTEND Internal Medicine
DX: I48.91 Unspecified atrial fibrillation (principal)

== ENCOUNTER → 2024-01-23 | Outpatient (REF) | payer MEDICARE, MEDICAID ==
[2024-01-23 12:42] LABS: HEMATOCRIT 36.3 % (36.0-47.0); HEMOGLOBIN 10.8 g/dl (12.0-15.5); MEAN CORPUSCULAR HEMOGLOBIN 27.2 pg (27.0-33.0); MEAN CORPUSCULAR HGB CONC 29.8 g/dl (32.0-36.5); MEAN CORPUSCULAR VOLUME 91.4 fl (80.0-96.0); PLATELET COUNT, AUTOMATED 325 10^3/uL (150-450); RED BLOOD COUNT 3.97 10^6/uL (4.00-5.40); WHITE BLOOD COUNT 9.1 10^3/uL (4.0-10.0)
[2024-01-23 13:11] LABS: INR 2.51; PROTHROMBIN TIME 26.1 SECONDS (12.5-14.5)
== END ==
PROVIDERS: ATTEND Internal Medicine
DX: N18.9 Chronic kidney disease, unspecified (principal); D63.1 Anemia in chronic kidney disease

== ENCOUNTER → 2024-01-30 | Outpatient (REF) | payer MEDICARE, MEDICAID ==
[2024-01-30 12:03] LABS: INR 2.77; PROTHROMBIN TIME 28.3 SECONDS (12.5-14.5)
== END ==
PROVIDERS: ATTEND Internal Medicine
DX: Z79.01 Long term (current) use of anticoagulants (principal)

== ENCOUNTER → 2024-02-06 | Outpatient (REF) | payer MEDICARE, MEDICAID ==
[2024-02-06 11:20] LABS: INR 2.25
== END ==
PROVIDERS: ATTEND Internal Medicine
DX: D64.9 Anemia, unspecified (principal); Z79.01 Long term (current) use of anticoagulants

== ENCOUNTER → 2024-02-13 | Outpatient (REF) | payer MEDICARE, MEDICAID | PROVIDERS: ATTEND Internal Medicine | DX: Z79.01 Long term (current) use of anticoagulants (principal) ==

== ENCOUNTER → 2024-02-20 | Outpatient (REF) | payer MEDICARE, MEDICAID ==
[2024-02-20 10:06] LABS: HEMATOCRIT 35.6 % (36.0-47.0); MEAN CORPUSCULAR HEMOGLOBIN 28.7 pg (27.0-33.0); MEAN CORPUSCULAR HGB CONC 30.9 g/dl (32.0-36.5); PLATELET COUNT, AUTOMATED 261 10^3/uL (150-450); RED BLOOD COUNT 3.83 10^6/uL (4.00-5.40); WHITE BLOOD COUNT 5.7 10^3/uL (4.0-10.0)
[2024-02-20 10:18] LABS: INR 1.91; PROTHROMBIN TIME 21.3 SECONDS (12.5-14.5)
[2024-02-20 10:25] LABS: HEMOGLOBIN A1c 6.8 % (4.0-6.0)
[2024-02-20 10:32] LABS: CALCIUM LEVEL 8.5 MG/DL (8.3-10.6); CREATININE FOR GFR 1.16 MG/DL (0.55-1.30); GLOMERULAR FILTRATION RATE 47.4 (>32); POTASSIUM SERUM 4.4 MMOL/L (3.5-5.1)
[2024-02-20 10:37] LABS: THYROID STIMULATING HORMONE 3.784 uIU/ML (0.55-4.78)
== END ==
PROVIDERS: ATTEND Internal Medicine
DX: D64.9 Anemia, unspecified (principal); Z79.01 Long term (current) use of anticoagulants; Z79.899 Other long term (current) drug therapy

== ENCOUNTER → 2024-02-27 | Outpatient (REF) | payer MEDICARE, MEDICAID ==
[2024-02-27 10:11] LABS: INR 2.06; PROTHROMBIN TIME 22.5 SECONDS (12.5-14.5)
== END ==
PROVIDERS: ATTEND Internal Medicine
DX: I82.409 Acute embolism and thrombosis of unspecified deep veins of unspecified lower extremity (principal); Z79.01 Long term (current) use of anticoagulants

== ENCOUNTER → 2024-03-05 | Outpatient (REF) | payer MEDICARE, MEDICAID ==
[2024-03-05 12:04] LABS: INR 1.69; PROTHROMBIN TIME 19.3 SECONDS (12.5-14.5)
== END ==
PROVIDERS: ATTEND Internal Medicine
DX: I82.409 Acute embolism and thrombosis of unspecified deep veins of unspecified lower extremity (principal); Z79.01 Long term (current) use of anticoagulants

== ENCOUNTER → 2024-03-12 | Outpatient (REF) | payer MEDICARE, MEDICAID ==
[2024-03-12 11:02] LABS: INR 2.03; PROTHROMBIN TIME 22.3 SECONDS (12.5-14.5)
== END ==
PROVIDERS: ATTEND Internal Medicine
DX: I82.409 Acute embolism and thrombosis of unspecified deep veins of unspecified lower extremity (principal); Z79.01 Long term (current) use of anticoagulants

== ENCOUNTER → 2024-03-19 | Outpatient (REF) | payer MEDICARE, MEDICAID ==
[2024-03-19 11:55] LABS: INR 2.09; PROTHROMBIN TIME 22.7 SECONDS (12.5-14.5)
== END ==
PROVIDERS: ATTEND Internal Medicine
DX: I82.409 Acute embolism and thrombosis of unspecified deep veins of unspecified lower extremity (principal); Z79.01 Long term (current) use of anticoagulants

== ENCOUNTER → 2024-03-24 | Outpatient (REF) | payer MEDICARE, MEDICAID ==
[2024-03-24 12:23] LABS: VITAMIN B12 LEVEL 280 PG/ML (211-911)
[2024-03-24 12:24] LABS: ALBUMIN 3.3 G/DL (3.2-5.2); ALKALINE PHOSPHATASE 80 U/L (46-116); ALT/SGPT 16 U/L (7.0-40); AST/SGOT < 8 U/L (<34); BILIRUBIN,TOTAL 0.3 MG/DL (0.3-1.2); BLOOD UREA NITROGEN 36 MG/DL (9-23); CALCIUM LEVEL 8.7 MG/DL (8.3-10.6); CARBON DIOXIDE LEVEL 27 MMOL/L (20-31); CHLORIDE LEVEL 106 MMOL/L (98-107); CREATININE FOR GFR 1.14 MG/DL (0.55-1.30); GLOMERULAR FILTRATION RATE 48.3 (>32); GLUCOSE, FASTING 229 MG/DL (74-106); POTASSIUM SERUM 4.3 MMOL/L (3.5-5.1); SODIUM LEVEL 141 MMOL/L (136-145); TOTAL PROTEIN 6.1 G/DL (5.7-8.2)
[2024-03-24 13:54] LABS: TOTAL 25(OH) VITAMIN D 66.1 NG/ML (20.0-100.0)
== END ==
PROVIDERS: ATTEND Internal Medicine
DX: E03.9 Hypothyroidism, unspecified (principal); J44.9 Chronic obstructive pulmonary disease, unspecified; J45.909 Unspecified asthma, uncomplicated; J98.11 Atelectasis; K44.9 Diaphragmatic hernia without obstruction or gangrene; Z79.899 Other long term (current) drug therapy

== ENCOUNTER → 2024-03-24 | Outpatient (REF) | payer MEDICARE, MEDICAID | PROVIDERS: ATTEND Physician Assistant | DX: J44.9 Chronic obstructive pulmonary disease, unspecified (principal); J45.909 Unspecified asthma, uncomplicated; J98.11 Atelectasis; K44.9 Diaphragmatic hernia without obstruction or gangrene ==

== ENCOUNTER → 2024-03-26 | Outpatient (REF) | payer MEDICARE, MEDICAID ==
[2024-03-26 10:37] LABS: INR 2.5; PROTHROMBIN TIME 26.1 SECONDS (12.5-14.5)
== END ==
PROVIDERS: ATTEND Internal Medicine
DX: Z79.01 Long term (current) use of anticoagulants (principal)

== ENCOUNTER → 2024-04-02 | Outpatient (REF) | payer MEDICARE, MEDICAID ==
[2024-04-02 11:29] LABS: HEMATOCRIT 42.7 % (36.0-47.0); HEMOGLOBIN 12.8 g/dl (12.0-15.5); MEAN CORPUSCULAR HEMOGLOBIN 29.4 pg (27.0-33.0); MEAN CORPUSCULAR VOLUME 97.9 fl (80.0-96.0); PLATELET COUNT, AUTOMATED 255 10^3/uL (150-450); RED BLOOD COUNT 4.36 10^6/uL (4.00-5.40); WHITE BLOOD COUNT 6.8 10^3/uL (4.0-10.0)
[2024-04-02 11:43] LABS: INR 2.12
[2024-04-02 12:01] LABS: CALCIUM LEVEL 8.8 MG/DL (8.3-10.6); CREATININE FOR GFR 1.29 MG/DL (0.55-1.30); GLOMERULAR FILTRATION RATE 41.9 (>32)
== END ==
PROVIDERS: ATTEND Internal Medicine
DX: I50.9 Heart failure, unspecified (principal)

== ENCOUNTER → 2024-04-09 | Outpatient (REF) | payer MEDICARE, MEDICAID ==
[~2024-04-09] MED LIST changes: +METH85CR6 TOP; -MUSCCRE9 TOP
[2024-04-09 10:55] LABS: INR 2.21; PROTHROMBIN TIME 23.7 SECONDS (12.5-14.5)
== END ==
PROVIDERS: ATTEND Internal Medicine
DX: Z79.01 Long term (current) use of anticoagulants (principal)

== ENCOUNTER → 2024-04-16 | Outpatient (REF) | payer MEDICARE, MEDICAID ==
[2024-04-16 09:11] LABS: INR 2.16; PROTHROMBIN TIME 23.3 SECONDS (12.5-14.5)
== END ==
PROVIDERS: ATTEND Internal Medicine
DX: Z79.01 Long term (current) use of anticoagulants (principal)

== ENCOUNTER → 2024-04-23 | Outpatient (REF) | payer MEDICARE, MEDICAID ==
[2024-04-23 10:41] LABS: INR 2.24
== END ==
PROVIDERS: ATTEND Internal Medicine
DX: Z79.01 Long term (current) use of anticoagulants (principal)

== ENCOUNTER → 2024-04-28 | Outpatient (REF) | payer MEDICARE, MEDICAID ==
[2024-04-28 12:35] LABS: HEMATOCRIT 40.2 % (36.0-47.0); HEMOGLOBIN 12.5 g/dl (12.0-15.5); MEAN CORPUSCULAR HEMOGLOBIN 30.5 pg (27.0-33.0); MEAN CORPUSCULAR HGB CONC 31.1 g/dl (32.0-36.5); PLATELET COUNT, AUTOMATED 279 10^3/uL (150-450); WHITE BLOOD COUNT 6.1 10^3/uL (4.0-10.0)
[2024-04-28 12:56] LABS: CALCIUM LEVEL 8.7 MG/DL (8.3-10.6); CREATININE FOR GFR 1.2 MG/DL (0.55-1.30); GLOMERULAR FILTRATION RATE 45.6 (>32); POTASSIUM SERUM 4.1 MMOL/L (3.5-5.1)
== END ==
PROVIDERS: ATTEND Internal Medicine
DX: I50.9 Heart failure, unspecified (principal)

== ENCOUNTER → 2024-04-30 | Outpatient (REF) | payer MEDICARE, MEDICAID ==
[2024-04-30 08:19] LABS: INR 1.98; PROTHROMBIN TIME 21.8 SECONDS (12.5-14.5)
== END ==
PROVIDERS: ATTEND Internal Medicine
DX: Z79.01 Long term (current) use of anticoagulants (principal)

== ENCOUNTER → 2024-05-07 | Outpatient (REF) | payer MEDICARE, MEDICAID ==
[2024-05-07 12:00] LABS: INR 1.96; PROTHROMBIN TIME 21.6 SECONDS (12.5-14.5)
== END ==
PROVIDERS: ATTEND Internal Medicine
DX: Z79.01 Long term (current) use of anticoagulants (principal)

== ENCOUNTER → 2024-05-14 | Outpatient (REF) | payer MEDICARE, MEDICAID ==
[2024-05-14 09:57] LABS: INR 2.49; PROTHROMBIN TIME 26.1 SECONDS (12.5-14.5)
== END ==
PROVIDERS: ATTEND Internal Medicine
DX: Z79.01 Long term (current) use of anticoagulants (principal)

== ENCOUNTER → 2024-05-21 | Outpatient (REF) | payer MEDICARE, MEDICAID ==
[2024-05-21 10:56] LABS: INR 2.32; PROTHROMBIN TIME 24.7 SECONDS (12.5-14.5)
== END ==
PROVIDERS: ATTEND Internal Medicine
DX: Z79.01 Long term (current) use of anticoagulants (principal)

== ENCOUNTER → 2024-05-26 | Outpatient (REF) | payer MEDICARE, MEDICAID ==
[2024-05-26 12:52] LABS: HEMATOCRIT 37.8 % (36.0-47.0); MEAN CORPUSCULAR HEMOGLOBIN 31.7 pg (27.0-33.0); MEAN CORPUSCULAR HGB CONC 31.7 g/dl (32.0-36.5); PLATELET COUNT, AUTOMATED 249 10^3/uL (150-450); RED BLOOD COUNT 3.78 10^6/uL (4.00-5.40); WHITE BLOOD COUNT 6.9 10^3/uL (4.0-10.0)
[2024-05-26 13:07] LABS: HEMOGLOBIN A1c 6.8 % (4.0-6.0)
[2024-05-26 13:25] LABS: CREATININE FOR GFR 1.12 MG/DL (0.55-1.30); GLOMERULAR FILTRATION RATE 49.3 (>32); POTASSIUM SERUM 4.2 MMOL/L (3.5-5.1); THYROID STIMULATING HORMONE 2.86 uIU/ML (0.55-4.78); THYROXINE (T4) 7.8 UG/DL (4.5-10.9)
== END ==
PROVIDERS: ATTEND Internal Medicine
DX: E07.9 Disorder of thyroid, unspecified (principal); Z79.899 Other long term (current) drug therapy

== ENCOUNTER → 2024-05-28 | Outpatient (REF) | payer MEDICARE, MEDICAID ==
[2024-05-28 13:23] LABS: INR 1.86; PROTHROMBIN TIME 20.8 SECONDS (12.5-14.5)
== END ==
PROVIDERS: ATTEND Internal Medicine
DX: Z79.01 Long term (current) use of anticoagulants (principal)

== ENCOUNTER → 2024-06-04 | Outpatient (REF) | payer MEDICARE, MEDICAID ==
[2024-06-04 09:27] LABS: INR 2.09; PROTHROMBIN TIME 22.8 SECONDS (12.5-14.5)
== END ==
PROVIDERS: ATTEND Internal Medicine
DX: Z79.01 Long term (current) use of anticoagulants (principal)

== ENCOUNTER → 2024-06-11 | Outpatient (REF) | payer MEDICARE, MEDICAID ==
[2024-06-11 09:03] LABS: INR 1.88
== END ==
PROVIDERS: ATTEND Internal Medicine
DX: Z79.01 Long term (current) use of anticoagulants (principal)

== ENCOUNTER → 2024-06-18 | Outpatient (REF) | payer MEDICARE, MEDICAID ==
[2024-06-18 09:57] LABS: INR 1.8; PROTHROMBIN TIME 20.3 SECONDS (12.5-14.5)
== END ==
PROVIDERS: ATTEND Internal Medicine
DX: Z79.01 Long term (current) use of anticoagulants (principal)

== ENCOUNTER → 2024-06-23 | Outpatient (REF) | payer MEDICARE, MEDICAID ==
[2024-06-23 10:24] LABS: INR 1.99; PROTHROMBIN TIME 21.9 SECONDS (12.5-14.5)
== END ==
PROVIDERS: ATTEND Internal Medicine
DX: Z79.01 Long term (current) use of anticoagulants (principal)

== ENCOUNTER → 2024-06-25 | Outpatient (REF) | payer MEDICARE, MEDICAID ==
[2024-06-25 10:57] LABS: INR 2.2; PROTHROMBIN TIME 23.6 SECONDS (12.5-14.5)
== END ==
PROVIDERS: ATTEND Internal Medicine
DX: Z79.01 Long term (current) use of anticoagulants (principal)

== ENCOUNTER → 2024-07-02 | Outpatient (REF) | payer MEDICARE, MEDICAID ==
[~2024-07-02] MED LIST changes: +METH-1386 PO; -METH25TAB PO
[2024-07-02 10:06] LABS: INR 1.75; PROTHROMBIN TIME 20.7 SECONDS (12.5-14.5)
== END ==
PROVIDERS: ATTEND Internal Medicine
DX: I48.91 Unspecified atrial fibrillation (principal); Z86.718 Personal history of other venous thrombosis and embolism

== ENCOUNTER → 2024-07-07 | Outpatient (REF) | payer MEDICARE, MEDICAID ==
[~2024-07-07] MED LIST changes: -METH-1386 PO; +METH25TAB PO
[2024-07-07 11:31] LABS: INR 2.28; PROTHROMBIN TIME 25.2 SECONDS (12.5-14.5)
== END ==
PROVIDERS: ATTEND Internal Medicine
DX: Z79.01 Long term (current) use of anticoagulants (principal)

== ENCOUNTER → 2024-07-09 | Outpatient (REF) | payer MEDICARE, MEDICAID ==
[2024-07-09 09:54] LABS: INR 2.12; PROTHROMBIN TIME 23.9 SECONDS (12.5-14.5)
== END ==
PROVIDERS: ATTEND Internal Medicine
DX: Z79.01 Long term (current) use of anticoagulants (principal)

== ENCOUNTER → 2024-07-16 | Outpatient (REF) | payer MEDICARE, MEDICAID ==
[2024-07-16 09:15] LABS: INR 2.65; PROTHROMBIN TIME 28.2 SECONDS (12.5-14.5)
== END ==
PROVIDERS: ATTEND Internal Medicine
DX: Z79.01 Long term (current) use of anticoagulants (principal)

== ENCOUNTER → 2024-07-23 | Outpatient (REF) | payer MEDICARE, MEDICAID ==
[2024-07-23 11:27] LABS: INR 2.24; PROTHROMBIN TIME 24.9 SECONDS (12.5-14.5)
== END ==
PROVIDERS: ATTEND Internal Medicine
DX: Z79.01 Long term (current) use of anticoagulants (principal)

== ENCOUNTER → 2024-07-30 | Outpatient (REF) | payer MEDICARE, MEDICAID ==
[~2024-07-30] MED LIST changes: +METH-1386 PO; -METH25TAB PO
[2024-07-30 09:28] LABS: INR 2.7; PROTHROMBIN TIME 28.6 SECONDS (12.5-14.5)
== END ==
PROVIDERS: ATTEND Internal Medicine
DX: D64.9 Anemia, unspecified (principal); Z79.01 Long term (current) use of anticoagulants

== ENCOUNTER → 2024-08-06 | Outpatient (REF) | payer MEDICARE, MEDICAID ==
[2024-08-06 10:13] LABS: INR 3.37; PROTHROMBIN TIME 33.9 SECONDS (12.5-14.5)
== END ==
PROVIDERS: ATTEND Internal Medicine
DX: Z79.01 Long term (current) use of anticoagulants (principal)

== ENCOUNTER → 2024-08-13 | Outpatient (REF) | payer MEDICARE, MEDICAID | PROVIDERS: ATTEND Internal Medicine | DX: Z79.01 Long term (current) use of anticoagulants (principal); Z53.9 Procedure and treatment not carried out, unspecified reason ==

== ENCOUNTER → 2024-08-14 | Outpatient (REF) | payer MEDICARE, MEDICAID ==
[2024-08-14 14:23] LABS: INR 1.85; PROTHROMBIN TIME 21.5 SECONDS (12.5-14.5)
== END ==
PROVIDERS: ATTEND Internal Medicine
DX: Z79.01 Long term (current) use of anticoagulants (principal)

== ENCOUNTER → 2024-08-20 | Outpatient (REF) | payer MEDICARE, MEDICAID ==
[2024-08-20 10:04] LABS: INR 2.04; PROTHROMBIN TIME 23.2 SECONDS (12.5-14.5)
== END ==
PROVIDERS: ATTEND Internal Medicine
DX: Z79.01 Long term (current) use of anticoagulants (principal)

== ENCOUNTER → 2024-08-25 | Outpatient (REF) | payer MEDICARE, MEDICAID ==
[2024-08-25 09:54] LABS: INR 2.62
== END ==
PROVIDERS: ATTEND Internal Medicine
DX: Z79.01 Long term (current) use of anticoagulants (principal)

== ENCOUNTER → 2024-09-01 | Outpatient (REF) | payer MEDICARE, MEDICAID ==
[2024-09-01 10:23] LABS: HEMATOCRIT 40.5 % (36.0-47.0); HEMOGLOBIN 12.3 g/dl (12.0-15.5); MEAN CORPUSCULAR HEMOGLOBIN 30.8 pg (27.0-33.0); MEAN CORPUSCULAR HGB CONC 30.4 g/dl (32.0-36.5); MEAN CORPUSCULAR VOLUME 101.5 fl (80.0-96.0); PLATELET COUNT, AUTOMATED 305 10^3/uL (150-450); RED BLOOD COUNT 3.99 10^6/uL (4.00-5.40); WHITE BLOOD COUNT 8.4 10^3/uL (4.0-10.0)
[2024-09-01 10:33] LABS: INR 2.76; PROTHROMBIN TIME 29.1 SECONDS (12.5-14.5)
[2024-09-01 10:54] LABS: THYROID STIMULATING HORMONE 3.753 uIU/ML (0.55-4.78)
[2024-09-01 10:55] LABS: THYROXINE (T4) 7.8 UG/DL (4.5-10.9)
[2024-09-01 10:56] LABS: TOTAL 25(OH) VITAMIN D 63.2 NG/ML (20.0-100.0)
[2024-09-01 10:57] LABS: ALBUMIN 3.2 G/DL (3.2-5.2); BILIRUBIN,TOTAL 0.3 MG/DL (0.3-1.2); CALCIUM LEVEL 8.7 MG/DL (8.3-10.6); CREATININE FOR GFR 1.13 MG/DL (0.55-1.30); GLOMERULAR FILTRATION RATE 48.8 (>32); POTASSIUM SERUM 3.9 MMOL/L (3.5-5.1); TOTAL PROTEIN 6.4 G/DL (5.7-8.2)
[2024-09-01 12:02] LABS: FREE T3 3.4 PG/ML (2.3-4.2)
== END ==
PROVIDERS: ATTEND Internal Medicine
DX: D64.9 Anemia, unspecified (principal); E05.90 Thyrotoxicosis, unspecified without thyrotoxic crisis or storm; N18.9 Chronic kidney disease, unspecified; I50.9 Heart failure, unspecified; E55.9 Vitamin D deficiency, unspecified

== ENCOUNTER → 2024-09-10 | Outpatient (REF) | payer MEDICARE, MEDICAID ==
[2024-09-10 10:58] LABS: INR 2.73; PROTHROMBIN TIME 28.9 SECONDS (12.5-14.5)
== END ==
PROVIDERS: ATTEND Internal Medicine
DX: Z79.01 Long term (current) use of anticoagulants (principal)

== ENCOUNTER → 2024-09-17 | Outpatient (REF) | payer MEDICARE, MEDICAID ==
[2024-09-17 13:38] LABS: INR 3.21; PROTHROMBIN TIME 32.7 SECONDS (12.5-14.5)
== END ==
PROVIDERS: ATTEND Internal Medicine
DX: Z79.01 Long term (current) use of anticoagulants (principal)

== ENCOUNTER → 2024-09-24 | Outpatient (REF) | payer MEDICARE, MEDICAID ==
[2024-09-24 15:59] LABS: INR 3.02; PROTHROMBIN TIME 31.2 SECONDS (12.5-14.5)
== END ==
PROVIDERS: ATTEND Internal Medicine
DX: R79.1 Abnormal coagulation profile (principal)

== ENCOUNTER → 2024-10-01 | Outpatient (REF) | payer MEDICARE, MEDICAID ==
[2024-10-01 09:14] LABS: INR 3.03; PROTHROMBIN TIME 31.3 SECONDS (12.5-14.5)
== END ==
PROVIDERS: ATTEND Internal Medicine
DX: Z79.01 Long term (current) use of anticoagulants (principal)

== ENCOUNTER → 2024-10-02 | Outpatient (REF) | payer MEDICARE, MEDICAID | PROVIDERS: ATTEND Physician Assistant | DX: M25.562 Pain in left knee (principal); M17.12 Unilateral primary osteoarthritis, left knee ==

== ENCOUNTER → 2024-10-08 | Outpatient (REF) | payer MEDICARE, MEDICAID ==
[2024-10-08 11:04] LABS: INR 3.34; PROTHROMBIN TIME 33.7 SECONDS (12.5-14.5)
== END ==
PROVIDERS: ATTEND Internal Medicine
DX: Z79.01 Long term (current) use of anticoagulants (principal)

== ENCOUNTER → 2024-10-15 | Outpatient (REF) | payer MEDICARE, MEDICAID ==
[2024-10-15 09:04] LABS: INR 2.71; PROTHROMBIN TIME 28.7 SECONDS (12.5-14.5)
== END ==
PROVIDERS: ATTEND Internal Medicine
DX: Z79.01 Long term (current) use of anticoagulants (principal)

== ENCOUNTER → 2024-10-22 | Outpatient (REF) | payer MEDICARE, MEDICAID ==
[2024-10-22 09:41] LABS: INR 2.82; PROTHROMBIN TIME 29.6 SECONDS (12.5-14.5)
== END ==
PROVIDERS: ATTEND Internal Medicine
DX: R79.1 Abnormal coagulation profile (principal); Z79.01 Long term (current) use of anticoagulants

== ENCOUNTER → 2024-10-29 | Outpatient (REF) | payer MEDICARE, MEDICAID ==
[2024-10-29 10:07] LABS: INR 2.72; PROTHROMBIN TIME 28.8 SECONDS (12.5-14.5)
== END ==
PROVIDERS: ATTEND Internal Medicine
DX: R79.1 Abnormal coagulation profile (principal); Z79.01 Long term (current) use of anticoagulants

== ENCOUNTER → 2024-11-05 | Outpatient (REF) | payer MEDICARE, MEDICAID ==
[2024-11-05 09:17] LABS: INR 3.05; PROTHROMBIN TIME 31.4 SECONDS (12.5-14.5)
== END ==
PROVIDERS: ATTEND Internal Medicine
DX: Z79.01 Long term (current) use of anticoagulants (principal)

== ENCOUNTER → 2024-11-12 | Outpatient (REF) | payer MEDICARE, MEDICAID ==
[2024-11-12 09:47] LABS: INR 3.15; PROTHROMBIN TIME 32.2 SECONDS (12.5-14.5)
== END ==
PROVIDERS: ATTEND Internal Medicine
DX: Z79.01 Long term (current) use of anticoagulants (principal)

== ENCOUNTER → 2024-11-19 | Outpatient (REF) | payer MEDICARE, MEDICAID ==
[2024-11-19 08:51] LABS: HEMATOCRIT 40.8 % (36.0-47.0); HEMOGLOBIN 12.5 g/dl (12.0-15.5); MEAN CORPUSCULAR HEMOGLOBIN 31.3 pg (27.0-33.0); MEAN CORPUSCULAR HGB CONC 30.6 g/dl (32.0-36.5); PLATELET COUNT, AUTOMATED 268 10^3/uL (150-450); WHITE BLOOD COUNT 6.2 10^3/uL (4.0-10.0)
[2024-11-19 09:08] LABS: INR 2.7; PROTHROMBIN TIME 28.6 SECONDS (12.5-14.5)
[2024-11-19 09:09] LABS: ALBUMIN 3.1 G/DL (3.2-5.2); BILIRUBIN,TOTAL 0.4 MG/DL (0.3-1.2); CALCIUM LEVEL 8.3 MG/DL (8.3-10.6); CREATININE FOR GFR 1.24 MG/DL (0.55-1.30); GLOMERULAR FILTRATION RATE 43.8 (>32); POTASSIUM SERUM 3.9 MMOL/L (3.5-5.1); THYROID STIMULATING HORMONE 4.495 uIU/ML (0.55-4.78); THYROXINE (T4) 6.4 UG/DL (4.5-10.9); TOTAL PROTEIN 6.2 G/DL (5.7-8.2)
[2024-11-19 09:21] LABS: HEMOGLOBIN A1c 7.6 % (4.0-6.0)
[2024-11-19 09:44] LABS: TOTAL 25(OH) VITAMIN D 64.1 NG/ML (20.0-100.0)
[2024-11-19 09:47] LABS: FREE T3 2.8 PG/ML (2.3-4.2)
== END ==
PROVIDERS: ATTEND Internal Medicine
DX: E11.9 Type 2 diabetes mellitus without complications (principal); Z79.01 Long term (current) use of anticoagulants; Z79.899 Other long term (current) drug therapy

== ENCOUNTER → 2024-11-26 | Outpatient (REF) | payer MEDICARE, MEDICAID ==
[2024-11-26 17:11] LABS: INR 2.76; PROTHROMBIN TIME 29.1 SECONDS (12.5-14.5)
== END ==
PROVIDERS: ATTEND Internal Medicine
DX: Z79.01 Long term (current) use of anticoagulants (principal)

== ENCOUNTER → 2024-12-03 | Outpatient (REF) | payer MEDICARE, MEDICAID ==
[2024-12-03 08:43] LABS: INR 2.74; PROTHROMBIN TIME 28.9 SECONDS (12.5-14.5)
== END ==
PROVIDERS: ATTEND Internal Medicine
DX: Z79.01 Long term (current) use of anticoagulants (principal)

== ENCOUNTER → 2024-12-10 | Outpatient (REF) | payer MEDICARE, MEDICAID ==
[2024-12-10 08:06] LABS: INR 2.98; PROTHROMBIN TIME 30.9 SECONDS (12.5-14.5)
== END ==
PROVIDERS: ATTEND Internal Medicine
DX: Z79.01 Long term (current) use of anticoagulants (principal)

== ENCOUNTER → 2024-12-17 | Outpatient (REF) | payer MEDICARE, MEDICAID ==
[2024-12-17 09:06] LABS: INR 2.58; PROTHROMBIN TIME 27.7 SECONDS (12.5-14.5)
== END ==
PROVIDERS: ATTEND Internal Medicine
DX: Z79.01 Long term (current) use of anticoagulants (principal)

== ENCOUNTER → 2024-12-18 | Outpatient (REF) | payer MEDICARE, MEDICAID | PROVIDERS: ATTEND Internal Medicine | DX: B37.31 Acute candidiasis of vulva and vagina (principal) ==

== ENCOUNTER → 2024-12-24 | Outpatient (REF) | payer MEDICARE, MEDICAID ==
[2024-12-24 09:22] LABS: INR 3.38
== END ==
PROVIDERS: ATTEND Internal Medicine
DX: Z79.01 Long term (current) use of anticoagulants (principal)

== ENCOUNTER → 2024-12-31 | Outpatient (REF) | payer MEDICARE, MEDICAID ==
[~2024-12-31] MED LIST changes: -FLOM0.4C39 PO; -GLUC1KIT IM; +GLUC1VIA14 IM; +TAMS-18 PO
== END ==
PROVIDERS: ATTEND Internal Medicine
DX: L29.2 Pruritus vulvae (principal)

== ENCOUNTER → 2024-12-31 | Outpatient (REF) | payer MEDICARE, MEDICAID ==
[2024-12-31 09:24] LABS: INR 3.23; PROTHROMBIN TIME 32.8 SECONDS (12.5-14.5)
== END ==
PROVIDERS: ATTEND Internal Medicine
DX: Z79.01 Long term (current) use of anticoagulants (principal)

== ENCOUNTER → 2025-01-07 | Outpatient (REF) | payer MEDICARE, MEDICAID ==
[~2025-01-07] MED LIST changes: +LIDO1ADH93 TD; -LIDO5DIS41 TD
[2025-01-07 07:53] LABS: INR 2.43; PROTHROMBIN TIME 26.4 SECONDS (12.5-14.5)
== END ==
PROVIDERS: ATTEND Internal Medicine
DX: Z79.01 Long term (current) use of anticoagulants (principal)

== ENCOUNTER → 2025-01-14 | Outpatient (REF) | payer MEDICARE, MEDICAID ==
[2025-01-14 09:02] LABS: INR 1.83; PROTHROMBIN TIME 21.4 SECONDS (12.5-14.5)
== END ==
PROVIDERS: ATTEND Internal Medicine
DX: Z79.01 Long term (current) use of anticoagulants (principal)

== ENCOUNTER → 2025-01-21 | Outpatient (REF) | payer MEDICARE, MEDICAID ==
[2025-01-21 09:18] LABS: INR 2.03; PROTHROMBIN TIME 23.1 SECONDS (12.5-14.5)
== END ==
PROVIDERS: ATTEND Internal Medicine
DX: Z79.01 Long term (current) use of anticoagulants (principal)

== ENCOUNTER → 2025-03-04 | Outpatient (REF) | payer MEDICARE, MEDICAID ==
[2025-03-04 09:39] LABS: INR 4.06
== END ==
PROVIDERS: ATTEND Internal Medicine
DX: Z79.01 Long term (current) use of anticoagulants (principal)

== ENCOUNTER → 2025-03-05 | Outpatient (REF) | payer MEDICARE, MEDICAID ==
[2025-03-05 12:53] LABS: INR 3.54
== END ==
PROVIDERS: ATTEND Internal Medicine
DX: Z79.01 Long term (current) use of anticoagulants (principal)

== ENCOUNTER → 2025-03-11 | Outpatient (REF) | payer MEDICARE, MEDICAID ==
[2025-03-11 09:25] LABS: INR 2.08
== END ==
PROVIDERS: ATTEND Internal Medicine
DX: Z79.01 Long term (current) use of anticoagulants (principal)

== ENCOUNTER → 2025-03-18 | Outpatient (REF) | payer MEDICARE, MEDICAID ==
[2025-03-18 10:30] LABS: PLATELET COUNT, AUTOMATED 243 10^3/uL (150-450)
[2025-03-18 10:42] LABS: INR 2.56
[2025-03-18 11:07] LABS: CALCIUM LEVEL 8.5 MG/DL (8.3-10.6); CARBON DIOXIDE LEVEL 27.0 MMOL/L (20-31); CHLORIDE LEVEL 103.0 MMOL/L (98-107); CREATININE FOR GFR 1.32 MG/DL (0.55-1.30); GLOMERULAR FILTRATION RATE 39.6 (>32); IRON (FE) 74.0 UG/DL (50-170); POTASSIUM SERUM 4.2 MMOL/L (3.5-5.1); SODIUM LEVEL 145.0 MMOL/L (136-145)
== END ==
PROVIDERS: ATTEND Internal Medicine
DX: D64.9 Anemia, unspecified (principal); Z79.01 Long term (current) use of anticoagulants

== ENCOUNTER → 2025-03-25 | Outpatient (REF) | payer MEDICARE, MEDICAID ==
[2025-03-25 08:51] LABS: INR 3.16
[2025-03-25 09:03] LABS: ALT/SGPT 19.0 U/L (7.0-40); AST/SGOT 17.0 U/L (<34); CALCIUM LEVEL 8.8 MG/DL (8.3-10.6); CARBON DIOXIDE LEVEL 31.0 MMOL/L (20-31); CHLORIDE LEVEL 103.0 MMOL/L (98-107); CREATININE FOR GFR 1.32 MG/DL (0.55-1.30); GLOMERULAR FILTRATION RATE 39.6 (>32); POTASSIUM SERUM 4.4 MMOL/L (3.5-5.1); SODIUM LEVEL 145.0 MMOL/L (136-145)
[2025-03-25 09:05] LABS: VITAMIN B12 LEVEL 273.0 PG/ML (211-911)
[2025-03-25 09:59] LABS: TOTAL 25(OH) VITAMIN D 89.9 NG/ML (20.0-100.0)
== END ==
PROVIDERS: ATTEND Internal Medicine
DX: D64.9 Anemia, unspecified (principal); I50.9 Heart failure, unspecified; Z79.01 Long term (current) use of anticoagulants; Z79.899 Other long term (current) drug therapy

== ENCOUNTER → 2025-03-27 | Outpatient (REF) | payer MEDICARE, MEDICAID ==
[2025-03-27 09:01] LABS: INR 2.48
== END ==
PROVIDERS: ATTEND Physician Assistant
DX: I48.91 Unspecified atrial fibrillation (principal); Z79.01 Long term (current) use of anticoagulants

== ENCOUNTER → 2025-04-01 | Outpatient (REF) | payer MEDICARE, MEDICAID ==
[2025-04-01 09:35] LABS: INR 2.78
== END ==
PROVIDERS: ATTEND Internal Medicine
DX: Z79.01 Long term (current) use of anticoagulants (principal)

== ENCOUNTER → 2025-04-08 | Outpatient (REF) | payer MEDICARE, MEDICAID ==
[2025-04-08 10:22] LABS: INR 2.14
== END ==
PROVIDERS: ATTEND Internal Medicine
DX: Z79.01 Long term (current) use of anticoagulants (principal)

== ENCOUNTER → 2025-04-15 | Outpatient (REF) | payer MEDICARE, MEDICAID | PROVIDERS: ATTEND Internal Medicine | DX: Z79.01 Long term (current) use of anticoagulants (principal); Z53.8 Procedure and treatment not carried out for other reasons ==

== ENCOUNTER → 2025-04-22 | Outpatient (REF) | payer MEDICARE, MEDICAID | PROVIDERS: ATTEND Internal Medicine | DX: Z79.01 Long term (current) use of anticoagulants (principal) ==

== ENCOUNTER → 2025-04-23 | Outpatient (REF) | payer MEDICARE, MEDICAID ==
[2025-04-23 13:21] LABS: INR 1.84
== END ==
PROVIDERS: ATTEND Internal Medicine
DX: Z79.01 Long term (current) use of anticoagulants (principal)

== ENCOUNTER → 2025-04-29 | Outpatient (REF) | payer MEDICARE, MEDICAID ==
[2025-04-29 11:50] LABS: INR 1.89
== END ==
PROVIDERS: ATTEND Internal Medicine
DX: Z79.01 Long term (current) use of anticoagulants (principal)

== ENCOUNTER → 2025-05-06 | Outpatient (REF) | payer MEDICARE, MEDICAID ==
[2025-05-06 10:08] LABS: PLATELET COUNT, AUTOMATED 261 10^3/uL (150-450)
[2025-05-06 10:16] LABS: INR 1.67
[2025-05-06 10:32] LABS: ESTIMATED AVERAGE GLUCOSE 183.0 MG/DL (60-110)
[2025-05-06 10:37] LABS: CALCIUM LEVEL 8.8 MG/DL (8.3-10.6); CARBON DIOXIDE LEVEL 26.0 MMOL/L (20-31); CHLORIDE LEVEL 104.0 MMOL/L (98-107); CREATININE FOR GFR 1.26 MG/DL (0.55-1.30); FREE T4 1.22 NG/DL (0.89-1.76); GLOMERULAR FILTRATION RATE 41.8 (>32); IRON (FE) 65.0 UG/DL (50-170); POTASSIUM SERUM 4.4 MMOL/L (3.5-5.1); SODIUM LEVEL 145.0 MMOL/L (136-145)
== END ==
PROVIDERS: ATTEND Internal Medicine
DX: Z79.01 Long term (current) use of anticoagulants (principal); D64.9 Anemia, unspecified; N18.9 Chronic kidney disease, unspecified; I50.9 Heart failure, unspecified; E05.90 Thyrotoxicosis, unspecified without thyrotoxic crisis or storm; E11.22 Type 2 diabetes mellitus with diabetic chronic kidney disease

== ENCOUNTER → 2025-05-11 | Outpatient (REF) | payer MEDICARE, MEDICAID ==
[2025-05-11 11:51] LABS: INR 2.44
== END ==
PROVIDERS: ATTEND Internal Medicine
DX: Z79.01 Long term (current) use of anticoagulants (principal)

== ENCOUNTER → 2025-05-12 | Outpatient (REF) | payer MEDICARE, MEDICAID | PROVIDERS: ATTEND Internal Medicine | DX: Z79.01 Long term (current) use of anticoagulants (principal); Z53.8 Procedure and treatment not carried out for other reasons ==

== ENCOUNTER → 2025-05-13 | Outpatient (REF) | payer MEDICARE, MEDICAID ==
[2025-05-13 12:25] LABS: INR 2.52
== END ==
PROVIDERS: ATTEND Internal Medicine
DX: Z79.01 Long term (current) use of anticoagulants (principal)

== ENCOUNTER → 2025-05-20 | Outpatient (REF) | payer MEDICARE, MEDICAID ==
[2025-05-20 13:23] LABS: INR 2.03
== END ==
PROVIDERS: ATTEND Internal Medicine
DX: Z79.01 Long term (current) use of anticoagulants (principal)

== ENCOUNTER → 2025-05-27 | Outpatient (REF) | payer MEDICARE, MEDICAID ==
[2025-05-27 13:39] LABS: INR 1.99
== END ==
PROVIDERS: ATTEND Internal Medicine
DX: Z79.01 Long term (current) use of anticoagulants (principal)

== ENCOUNTER → 2025-06-03 | Outpatient (REF) | payer MEDICARE, MEDICAID ==
[2025-06-03 11:24] LABS: PLATELET COUNT, AUTOMATED 259 10^3/uL (150-450)
[2025-06-03 11:32] LABS: INR 1.95
[2025-06-03 11:42] LABS: ESTIMATED AVERAGE GLUCOSE 171.0 MG/DL (60-110)
[2025-06-03 12:12] LABS: CALCIUM LEVEL 8.3 MG/DL (8.3-10.6); CARBON DIOXIDE LEVEL 26.0 MMOL/L (20-31); CHLORIDE LEVEL 102.0 MMOL/L (98-107); CREATININE FOR GFR 1.18 MG/DL (0.55-1.30); GLOMERULAR FILTRATION RATE 45.3 (>32); POTASSIUM SERUM 4.2 MMOL/L (3.5-5.1); SODIUM LEVEL 136.0 MMOL/L (136-145)
== END ==
PROVIDERS: ATTEND Internal Medicine
DX: Z79.01 Long term (current) use of anticoagulants (principal); Z79.899 Other long term (current) drug therapy

== ENCOUNTER → 2025-06-10 | Outpatient (REF) | payer MEDICARE, MEDICAID | PROVIDERS: ATTEND Internal Medicine | DX: Z79.01 Long term (current) use of anticoagulants (principal); Z53.8 Procedure and treatment not carried out for other reasons ==

== ENCOUNTER → 2025-06-11 | Outpatient (REF) | payer MEDICARE, MEDICAID ==
[2025-06-11 13:03] LABS: INR 1.7
== END ==
PROVIDERS: ATTEND Internal Medicine
DX: Z79.01 Long term (current) use of anticoagulants (principal); N89.8 Other specified noninflammatory disorders of vagina; Z79.899 Other long term (current) drug therapy

== ENCOUNTER → 2025-06-17 | Outpatient (REF) | payer MEDICARE, MEDICAID ==
[2025-06-17 13:36] LABS: INR 1.64
== END ==
PROVIDERS: ATTEND Internal Medicine
DX: Z79.01 Long term (current) use of anticoagulants (principal)

== ENCOUNTER → 2025-06-24 | Outpatient (REF) | payer MEDICARE, MEDICAID ==
[2025-06-24 12:10] LABS: INR 3.09
== END ==
PROVIDERS: ATTEND Internal Medicine
DX: Z79.01 Long term (current) use of anticoagulants (principal)

== ENCOUNTER → 2025-07-01 | Outpatient (REF) | payer MEDICARE, MEDICAID ==
[2025-07-01 11:52] LABS: INR 2.43
== END ==
PROVIDERS: ATTEND Internal Medicine
DX: Z79.01 Long term (current) use of anticoagulants (principal)

== ENCOUNTER → 2025-07-08 | Outpatient (REF) | payer MEDICARE, MEDICAID ==
[2025-07-08 13:12] LABS: INR 1.95
== END ==
PROVIDERS: ATTEND Internal Medicine
DX: E11.9 Type 2 diabetes mellitus without complications (principal); Z79.01 Long term (current) use of anticoagulants

== ENCOUNTER → 2025-07-15 | Outpatient (REF) | payer MEDICARE, MEDICAID ==
[2025-07-15 10:55] LABS: PLATELET COUNT, AUTOMATED 255 10^3/uL (150-450)
[2025-07-15 11:18] LABS: INR 1.89
[2025-07-15 11:22] LABS: CALCIUM LEVEL 8.3 MG/DL (8.3-10.6); CARBON DIOXIDE LEVEL 25.0 MMOL/L (20-31); CHLORIDE LEVEL 108.0 MMOL/L (98-107); CREATININE FOR GFR 1.14 MG/DL (0.55-1.30); GLOMERULAR FILTRATION RATE 47.2 (>32); IRON (FE) 45.0 UG/DL (50-170); POTASSIUM SERUM 4.2 MMOL/L (3.5-5.1); SODIUM LEVEL 146.0 MMOL/L (136-145)
== END ==
PROVIDERS: ATTEND Internal Medicine
DX: D64.9 Anemia, unspecified (principal); Z79.01 Long term (current) use of anticoagulants

== ENCOUNTER → 2025-07-22 | Outpatient (REF) | payer MEDICARE, MEDICAID ==
[2025-07-22 12:12] LABS: INR 2.01
== END ==
PROVIDERS: ATTEND Internal Medicine
DX: Z79.01 Long term (current) use of anticoagulants (principal)

== ENCOUNTER → 2025-07-22 | Outpatient (REF) | payer MEDICARE, MEDICAID | PROVIDERS: ATTEND Internal Medicine | DX: Z79.01 Long term (current) use of anticoagulants (principal); Z53.8 Procedure and treatment not carried out for other reasons ==

== ENCOUNTER → 2025-07-29 | Outpatient (REF) | payer MEDICARE, MEDICAID ==
[2025-07-29 13:05] LABS: INR 1.69
== END ==
PROVIDERS: ATTEND Internal Medicine
DX: Z79.01 Long term (current) use of anticoagulants (principal)

== ENCOUNTER → 2025-08-05 | Outpatient (REF) | payer MEDICARE, MEDICAID ==
[2025-08-05 14:55] LABS: INR 2.29
== END ==
PROVIDERS: ATTEND Internal Medicine
DX: Z79.01 Long term (current) use of anticoagulants (principal)

== ENCOUNTER → 2025-08-12 | Outpatient (REF) | payer MEDICARE, MEDICAID ==
[2025-08-12 13:45] LABS: INR 2.26
== END ==
PROVIDERS: ATTEND Internal Medicine
DX: Z79.01 Long term (current) use of anticoagulants (principal)

== ENCOUNTER → 2025-08-19 | Outpatient (REF) | payer MEDICARE, MEDICAID ==
[2025-08-19 13:24] LABS: PLATELET COUNT, AUTOMATED 312 10^3/uL (150-450)
[2025-08-19 13:41] LABS: INR 2.73
[2025-08-19 14:19] LABS: ALT/SGPT 24.0 U/L (7.0-40); AST/SGOT 22.0 U/L (<34); CALCIUM LEVEL 8.9 MG/DL (8.3-10.6); CARBON DIOXIDE LEVEL 26.0 MMOL/L (20-31); CHLORIDE LEVEL 100.0 MMOL/L (98-107); CREATININE FOR GFR 1.25 MG/DL (0.55-1.30); GLOMERULAR FILTRATION RATE 42.2 (>32); IRON (FE) 74.0 UG/DL (50-170); POTASSIUM SERUM 4.0 MMOL/L (3.5-5.1); SODIUM LEVEL 140.0 MMOL/L (136-145)
[2025-08-19 14:22] LABS: ESTIMATED AVERAGE GLUCOSE 177.0 MG/DL (60-110); THYROXINE (T4) 8.7 UG/DL (4.5-10.9); TOTAL 25(OH) VITAMIN D 67.7 NG/ML (20.0-100.0)
[2025-08-19 14:26] LABS: VITAMIN B12 LEVEL 290.0 PG/ML (211-911)
== END ==
PROVIDERS: ATTEND Internal Medicine
DX: N18.9 Chronic kidney disease, unspecified (principal); Z79.899 Other long term (current) drug therapy

== ENCOUNTER → 2025-08-26 | Outpatient (REF) | payer MEDICARE, MEDICAID ==
[2025-08-26 09:14] LABS: INR 3.04
== END ==
PROVIDERS: ATTEND Internal Medicine
DX: Z79.01 Long term (current) use of anticoagulants (principal)

== ENCOUNTER → 2025-09-01 | Outpatient (REF) | payer MEDICARE, MEDICAID | PROVIDERS: ATTEND Internal Medicine | DX: Z79.01 Long term (current) use of anticoagulants (principal) ==

== ENCOUNTER → 2025-09-02 | Outpatient (REF) | payer MEDICARE, MEDICAID ==
[2025-09-02 10:52] LABS: INR 2.45
== END ==
PROVIDERS: ATTEND Internal Medicine
DX: Z79.01 Long term (current) use of anticoagulants (principal)